=== PATIENT | male | born 1985 | race Caucasian/White ===

== ENCOUNTER → 2022-11-19 09:49 | Outpatient (BNVA) | payer MEDICARE, MEDICAID, SELFPAY | PROVIDERS: PCP Internal Medicine; Visit Provider Nurse Practitioner Family | DX: R56.9 Unspecified convulsions (principal); R11.2 Nausea with vomiting, unspecified | CPT/HCPCS: 99212 ==

== ENCOUNTER 2023-05-24 13:02 | Outpatient (AMB) | payer MEDICARE, MEDICAID, SELFPAY ==
[2023-05-24 13:03] VITALS: BP 110/76; PULSE 65; O2SAT 98
--- NOTE | 2023-05-24 13:03 | MHC.OFFVIS ---
Intake Vital Signs 05/24/23 13:03 Height 5 ft 11 in BMI Reason not done Patient refused/unable BP 110/76 Blood Pressure Location Rt brachial Position Sitting Pulse 65 Pulse Source Pulse Oximeter Pulse Oximetry (%) 98 Oxygen Delivery Method Room Air Intake Visit Reasons: 6m follow up PNS - Confirmed Intake Note: Pt presents with his partner/systems applications programming lead as a f/u for seizures. pt states he hasn't had any seizures and everything is just fine. Floor Covering Printer Required: Yes Floor Covering Printer Name: Bradly Jones [id number] Accompanied by: Significant Other Allergies morphine Allergy (Intermediate, Verified 05/24/23 13:10) Seizure aspirin Allergy (Unknown, Verified 05/24/23 13:10) Unknown nicotine Allergy (Unknown, Verified 05/24/23 13:10) Unknown Medication List - Last Reconciled 05/24/23 by NONI Ochoa aspirin 81 mg PO DAILY atorvastatin 80 mg PO DAILY brimonidine 0.1% (Alphagan P) 1 drp ophthalmic (eye) TID carvedilol 12.5 mg PO BID diphenhydramine HCl (Banophen) 25 mg PO Q8H PRN dorzolamide-timolol 22.3-6.8 mg/mL ophthalmic (eye) BID escitalopram oxalate 10 mg PO DAILY evolocumab (Repatha SureClick) 140 mg subcut Q2W insulin lispro (Humalog KwikPen (U-100) Insulin) subcut latanoprost 0.005% 1 drp ophthalmic-Right BEDTIME [levemir 52 units subcut .night] phenytoin sodium extended 100 mg PO DAILY sacubitril-valsartan 49-51 mg (Entresto) 1 tab PO BID ticagrelor (Brilinta) 60 mg PO BID torsemide 20 mg PO DAILY HPI HPI Comments History of Present Illness Details 37-yr-old male presents for f/u visit, accompanied by his partner. Pt denies any significant interval medical changes. Pt denies any interval seizure activity. He is compliant w/ his Phenytoin. He did not do labs after last visit. They are curious if pt can travel to [place]. [facility] Medical History Albuminuria Anxiety Arthralgia Cardiomyopathy Diabetes type I Diabetic retinopathy DM (diabetes mellitus), type 1 with renal complications GERD (gastroesophageal reflux disease) HLD (hyperlipidemia) HTN (hypertension) Hypogonadism in male Microalbuminuria MINOO (obstructive sleep apnea) Surgical History Hx of BKA Social History Alcohol intake: current Patient Tobacco Use Status: Current everyday Tobacco user Review of Systems Const All systems reviewed & are unremarkable except as noted in HPI and below Physical Exam Vital Signs: Last Vital Signs Pulse 65 05/24/23 13:03 BP 110/76 05/24/23 13:03 Pulse Ox 98 05/24/23 13:03 Oxygen Delivery Method Room Air 05/24/23 13:03 Const General: cooperative and no acute distress Orientation/consciousness: patient oriented x3 Resp Effort & Inspection: normal respiratory effort and able to speak in complete sentences Neuro Other: Legally blind LLE- prosthetic General: patient oriented x3 Cognition (Neuro): normal cognition Psych Appearance: grossly normal Mental Status: mental status grossly normal Speech and movement: Normal speech and movement present Affect: normal affect Attitude: cooperative Assessment & Plan Assessment & Plan (1) Seizure: Code(s): R56.9 - Unspecified convulsions Plan Continue Phenytoin 200mg bid. Check CBC, CMP, phenytoin level- order slip given to pt. From a neuro stand point- pt may travel- advised him to bring a sufficient supply of phenytoin to accommodate any flight/travel changes. As an extra precaution, will send an order for prn Clonazepam 2mg for breakthrough seizure lasting > 2 minutes. f/u in 6 months or sooner prn. Orders: Orders Comprehensive Met. Panel 05/24/23 R56.9 - Unspecified convulsions Complete Blood Count Auto Diff 05/24/23 R56.9 - Unspecified convulsions Phenytoin Dilantin 05/24/23 R56.9 - Unspecified convulsions Medications: New clonazepam 1 tab prn seizure lasting longer than 2 minutes, may repeat x's 1 orally . PRN; 30 days 5 tabs 0RF seizure activity Changed From phenytoin sodium extended 100 mg PO DAILY To phenytoin sodium extended 200 mg (2 x 100 mg) PO BID 90 days 360 caps 1RF Coding Level of Care Code Est Pt Level 3 (25232) Diagnoses Seizure R56.9
== END 2023-05-24 13:45 | disposition home or self-care (01) ==
PROVIDERS: Visit Provider Nurse Practitioner Family
DX: R56.9 Unspecified convulsions (principal)
CPT/HCPCS: 99213

== ENCOUNTER → 2023-05-24 13:02 | Outpatient (BNVA) | payer MEDICARE, MEDICAID, SELFPAY | PROVIDERS: Visit Provider Nurse Practitioner Family | DX: R56.9 Unspecified convulsions (principal) | CPT/HCPCS: 99212 ==

== ENCOUNTER 2023-06-24 08:09 | Day surgery (SDC) | payer MEDICARE, MEDICAID, SELFPAY ==
[2023-06-20 10:20] VITALS: BMI 32.3
--- NOTE | 2023-06-21 08:27 | MHC.SHP ---
Pre-Procedural Eval Section A Date of Service: 06/21/23 The patient is an INPATIENT: No Changes since office visit: No Cold of Flu in the past 2 weeks, No New Medical Problems, No Changes in Medication and No Patient answered all questions The History & Physical has been completed within 30 days and I have reviewed it.: Yes Section B Chief Complaint: Age-related nuclear cataract, right eye Allergies: Allergies Allergy/AdvReac Type Severity Reaction Status Date / Time aspirin Allergy Intermediate Gastrointestinal Verified 06/20/23 10:24 Upset morphine Allergy Intermediate Seizure Verified 06/20/23 10:24 nicotine Allergy Intermediate Rash Verified 06/20/23 10:24 Plan Diagnosis/Plan: Unchanged I have reviewed the history and physical and performed a pertinent physical examination on my patient. No changes have occurred unless specified. Time Spent With Patient Time: Total time managing care of this patient today ____ minutes.
--- OUTSIDE RECORDS SUMMARY | 2023-06-24 08:11 | XMS_ITS | Continuity of Care Document ---
Author Name Unknown Organization [facility] ter Address [address] [place] [id number]- Care Team Providers Care Patrol Captain Name Role Phone Tuyet Mckinley MD Primary Care Physician Encounter [facility] [place] Date(s): 10/28/19 - 01/19/[address] [id number]- [facility] Encounter Diagnosis ST elevation (STEMI) myocardial infarction of unspecified site(Final) - Discharge Disposition: A-D/C Home Attending Physician: Jennifer Garcia MD Admitting Physician: Jennifer Garcia MD Referring Physician: Jennifer Garcia MD Allergies, Adverse Reactions, Alerts Substance Reaction Severity Status morphine hyperactive Active Medications aspirin 81 mg oral delayed release tablet = 81 mg, By Mouth, Daily, # 30 tablet, 0 Refills, Maintenance, 10/08/19 16:09:00 EST, EC Tablet, [facility], 180.34, cm, 10/08/19 12:43:00 EST, Height, 95.45, kg, 10/06/19 13:17:00 EST,Dry Weight Start Date: 10/08/19 Status: Ordered atorvastatin 80 mg oral tablet 1 tablet = 80 mg, By Mouth, Daily at bedtime, # 30 tablet, 0 Refills, Maintenance, 10/08/19 16:10:00 EST, Tablet, [facility], 180.34, cm, 10/08/19 12:43:00 EST, Height, 95.45, kg, 10/06/19 13:17:00 EST, Dry Weight Start Date: 10/08/19 Status: Ordered citalopram 10 mg oral tablet 10 mg, 1, tablet, By Mouth, Daily, # 30 tablet, Refills 0, Maintenance, 10/06/19 14:34:00 EST Start Date: 10/06/19 Status: Ordered Freestyle Lite Test Strips See Instructions, # 150 each, Refills 11, Tot. Refills 11, Maintenance, use 4 times daily as directed for Type 1 Diabetes Mellitus, 01/19/20 11:22:00 EDT, Compound, 180.34, cm, 10/28/19 10:48:00 EST,Height, 95.45, kg, 10/06/19 13:17:00 EST, Dry Weight Start Date: 01/19/20 Stop Date: 01/13/21 Status: Ordered Insulin ASPART Sliding Scale Subcutaneous Infusion, 3 times a day before meals, Maintenance, 10/06/19 14:36:00 EST Start Date: 10/06/19 Status: Ordered Insulin Detemir Inj See Instructions, 40units Subcutaneous Infusion QHS, 0 Refills, Maintenance, 10/06/19 14:37:00 EST Start Date: 10/06/19 Status: Ordered Levemir FlexTouch 100 units/mL subcutaneous solution See Instructions, Take 52 units daily at bedtime. E11.65, # 30 mL, 11 Refills, Maintenance, 01/19/20 11:19:00 EDT, [facility] #[id number], 180.34, cm, 10/28/19 10:48:00 EST, Height, 95.45, kg, 10/06/19 13:17:00 EST, Dry Weight Start Date: 01/19/20 Status: Ordered lisinopril 10 mg oral tablet 10 mg, 1, tablet, By Mouth, Daily, # 30 tablet, Refills 0, Maintenance, 10/06/19 14:35:00 EST Start Date: 10/06/19 Status: Ordered nicotine 21 mg/24 hr transdermal film, extended release 1 patch, Topically, Daily, # 30 patch, 1 Refills, Maintenance, 10/08/19 16:11:00 EST, Patch, [facility], 1 patch Topically Daily, 180.34, cm, 10/08/19 12:43:00 EST, Height, 95.45, kg, 10/06/19 13:17:00 EST, Dry Weight Start Date: 10/08/19 Stop Date: 11/08/19 Status: Ordered NovoLOG FlexPen 100 units/mL subcutaneous solution See Instructions, Subcutaneous Injection, Use as directed for Diabetes mellitus type 1. (Max Dose =50 units/day), # 30 mL, 11 Refills, Maintenance, 10/09/19 9:57:00 EST, [facility] #[id number],180.34, cm, 10/09/19 9:33:00 EST, Height, 95.45, kg... Start Date: 10/09/19 Stop Date: 10/03/20 Status: Ordered Phenytek 200 mg oral capsule, extended release 2 capsule = 400 mg, By Mouth, Daily, # 30 capsule, 0 Refills, Maintenance, 10/06/19 14:34:00 EST, CR Capsule Start Date: 10/06/19 Status: Ordered ticagrelor 90 mg oral tablet 1 tablet = 90 mg, By Mouth, 2 times a day, # 60 tablet, 0 Refills, Maintenance, 10/08/19 16:11:00 EST, Tablet, [facility], 180.34, cm, 10/08/19 12:43:00 EST, Height, 95.45, kg, 10/06/1913:17:00 EST, Dry Weight Start Date: 10/08/19 Status: Ordered Toprol XL 50 mg oral tablet, extended release 50 mg, 1, tablet, By Mouth, Daily, # 30 tablet, Refills 0, Tot. Refills 0, Maintenance, 10/08/19 16:10:00 EST, Route to Pharmacy Electronically, [facility], 180.34, cm, 10/08/19 12:43:00 EST, Height, 95.45, kg, 10/06/19 13:17:00 EST, Dry... Start Date: 10/08/19 Status: Ordered Problem List Condition Effective Dates Status Health Status Inform ant CAD (coronary artery disease)(Confirmed) Active Epilepsy(Confirmed) Active HTN (hypertension)(Confirmed) Active Positive PPD 11 mm(Confirmed) 1 06/25/12 Active Type 1 diabetes mellitus(Confirmed) Active 1T-Spot test negative on 02/24/13. No further action required. Vital Signs Most recent to oldest [Reference Range]: 1 Height 180.34 cm (10/28/19 10:48 AM) Weight 99.5 kg (10/28/19 10:48 AM) Body Mass Index [18.5-24.99] 30.59 *>HHI* (10/28/19 10:48 AM) Blood Pressure [90-138/55-84 mm Hg] 120/ 64mm Hg (10/28/19 10:48 AM) Blood pressure sites Arm, right (10/28/19 10:48 AM) Social History Social History Type Response Tobacco Type: Cigarettes. To bacco use times per day: 10 ciggerettes per day. 20 Number of years:. Total pack years: 10. Sex
--- OUTSIDE RECORDS SUMMARY | 2023-06-24 08:11 | XMS_ITS | Continuity of Care Document ---
Author Name Unknown Organization [facility] Address [address] [place] [id number]- Care Team Providers Care Tool Filer Hand Name Role Phone Arlen BRAND, Tuyet Cullen Primary Care Physician Encounter [facility] [place] Date(s): 02/20/21 - 03/22/21 [facility] [address] [place] [id number] Allergies, Adverse Reactions, Alerts Substance Reaction Severity Status morphine hyperactive Active Medications aspirin 81 mg oral delayed release tablet = 81 mg, By Mouth, Daily, # 30 tablet, 0 Refills, Maintenance, 10/08/19 16:09:00 EST, EC Tablet, [facility], 180.34, cm, 10/08/19 12:43:00 EST, Height, 95.45, kg, 10/06/19 13:17:00 EST,Dry Weight Start Date: 10/08/19 Status: Ordered atorvastatin 80 mg oral tablet 1 tablet = 80 mg, By Mouth, Daily at bedtime, # 30 tablet, 0 Refills, Maintenance, 10/08/19 16:10:00 EST, Tablet, [facility], 180.34, cm, 10/08/19 12:43:00 EST, Height, 95.45, kg, 10/06/19 13:17:00 EST, Dry Weight Start Date: 10/08/19 Status: Ordered citalopram 10 mg oral tablet 10 mg, 1, tablet, By Mouth, Daily, # 30 tablet, Refills 0, Maintenance, 10/06/19 14:34:00 EST Start Date: 10/06/19 Status: Ordered Freestyle Lite Test Strips See Instructions, # 150 each, Refills 6, Tot. Refills 6, Maintenance, use 4 times daily as directedfor Type 1 Diabetes Mellitus, 02/22/21 10:14:00 EDT, Compound, 180.34, cm, 10/28/19 10:48:00 EST, Height, 95.45, kg, 10/06/19 13:17:00 EST, Dry Weight Start Date: 02/22/21 Stop Date: 09/20/21 Status: Ordered Humalog Kwik Pen 100 units/mL subcutaneous injection See Instructions, Use as directed for Diabetes Mellitus type 1. Max daily dose 50 units. E10.9. 30 day supply., # 30 mL, 11 Refills, Maintenance, 02/03/21 13:43:00 EDT, [facility] #[id number], 180.34, cm, 10/28/19 10:48:00 EST, Height, 95.45, kg,... Start Date: 02/03/21 Status: Ordered Levemir FlexTouch 100 units/mL subcutaneous solution See Instructions, Take 25 units twice daily. E10.9, # 30 mL, 11 Refills, Maintenance, 02/06/21 21:58:00 EDT, [facility] #[id number], 180.34, cm, 10/28/19 10:48:00 EST, Height, 95.45, kg, 10/06/19 13:17:00 EST, Dry Weight Start Date: 02/06/21 Status: Ordered lisinopril 10 mg oral tablet 10 mg, 1, tablet, By Mouth, Daily, # 30 tablet, Refills 0, Maintenance, 10/06/19 14:35:00 EST Start Date: 10/06/19 Status: Ordered nicotine 21 mg/24 hr transdermal film, extended release 1 patch, Topically, Daily, # 30 patch, 1 Refills, Maintenance, 10/08/19 16:11:00 EST, Patch, [facility], 1 patch Topically Daily, 180.34, cm, 10/08/19 12:43:00 EST, Height, 95.45, kg, 10/06/19 13:17:00 EST, Dry Weight Start Date: 10/08/19 Stop Date: 11/08/19 Status: Ordered Phenytek 200 mg oral capsule, extended release 2 capsule = 400 mg, By Mouth, Daily, # 30 capsule, 0 Refills, Maintenance, 10/06/19 14:34:00 EST, CR Capsule Start Date: 10/06/19 Status: Ordered ticagrelor 90 mg oral tablet 1 tablet = 90 mg, By Mouth, 2 times a day, # 60 tablet, 0 Refills, Maintenance, 10/08/19 16:11:00 EST, Tablet, [facility], 180.34, cm, 10/08/19 12:43:00 EST, Height, 95.45, kg, 10/06/1913:17:00 EST, Dry Weight Start Date: 10/08/19 Status: Ordered Toprol XL 50 mg oral tablet, extended release 50 mg, 1, tablet, By Mouth, Daily, # 30 tablet, Refills 0, Tot. Refills 0, Maintenance, 10/08/19 16:10:00 EST, Route to Pharmacy Electronically, [facility], 180.34, cm, 10/08/19 12:43:00 EST, Height, 95.45, kg, 10/06/19 13:17:00 EST, Dry... Start Date: 10/08/19 Status: Ordered Problem List Condition Effective Dates Status Health Status Inform ant CAD (coronary artery disease)(Confirmed) Active Epilepsy(Confirmed) Active HTN (hypertension)(Confirmed) Active Positive PPD 11 mm(Confirmed) 1 06/25/12 Active Type 1 diabetes mellitus(Confirmed) Active 1T-Spot test negative on 02/24/13. No further action required. Social History Social History Type Response Tobacco Type: Cigarettes. To bacco use times per day: 10 ciggerettes per day. 20 Number of years:. Total pack years: 10. Sex
--- OUTSIDE RECORDS SUMMARY | 2023-06-24 08:11 | XMS_ITS | Continuity of Care Document ---
Author Name Unknown Organization [facility] ter Address [address] [place] [id number]- Care Team Providers Care Attendant Campground Name Role Phone Tuyet Mckinley Primary Care Physician [place] [facility] [place] - 10/08/[address] [address]- [facility] Encounter Diagnosis Chest pain(Final) - 10/06/19 Discharge Disposition: A-D/C Home Attending Physician: Thee Cason MD Admitting Physician: Clark Mazariegos MD Referring Physician: Not on Staff, Referring MD Allergies, Adverse Reactions, Alerts Substance Reaction [...] 14:34:00 EST Start Date: 10/06/19 Status: Ordered Insulin ASPART Sliding Scale Subcutaneous Infusion, 3 times a day before meals, Maintenance, 10/06/19 14:36:00 EST Start Date: 10/06/19 Status: Ordered Insulin Detemir Inj See Instructions, 40units Subcutaneous Infusion QHS, 0 Refills, Maintenance, 10/06/19 14:37:00 EST Start Date: 10/06/19 Status: Ordered lisinopril 10 mg oral tablet 10 mg, 1, tablet, By Mouth, Daily, # 30 tablet, Refills 0, Maintenance, 10/06/19 14:35:00 EST Start Date: 10/06/19 Status: Ordered nicotine 21 mg/24 hr transdermal film, extended release 1 patch, Topically, Daily, # 30 patch, 1 Refills, Maintenance, 10/08/19 16:11:00 EST, Patch, [facility], 1 patch Topically Daily, 180.34, cm, [...] 10/08/19 16:10:00 EST, Route to Pharmacy Electronically, [facility], 180.34, cm, 10/08/19 12:43:00 EST, Height, 95.45, kg, 10/06/19 13:17:00 EST, Dry... Start Date: 10/08/19 Status: Ordered Problem List Condition Effective Dates Status Health Status Inform ant CAD (coronary artery disease)(Confirmed) Active Epilepsy(Confirmed) Active HTN (hypertension)(Confirmed) Active Positive PPD 11 mm(Confirmed) 1 06/25/12 Active Type 1 diabetes mellitus(Confirmed) Active 1T-Spot test negative on 02/24/13. No further action required. Procedures Procedure Date Related Diagnosis Body Site Status Retinal abnormality - diabetes-related 10/07/14 Completed Results Radiology Reports * Exam Date Time Procedure Performing Provider Status 10/06/19 12:06 PM Chest Portable Erin Hatch; Aut h (Verified) Notes: (Chest Portable) Reason For Exam: chest pain;Other: RESULT: Chest Portable Chest Portable AP upright at 1148 hours Reason: Other:; chest pain; Clinical Question(s): Pneumothorax COMPARISON: 02/24/2013 FINDINGS: LINES AND TUBES: None. LUNGS AND PLEURA: Clear lungs. Normal pulmonary vascularity. No pleural effusion. No pneumothorax. HEART, MEDIASTINUM AND LORI: Heart is normal in size. Normal mediastinal and hilar contour. BONES AND SOFT TISSUES: No acute abnormality. IMPRESSION: No acute abnormality. WSN: [id number] Dictated By: iMtul Mcmillan DO Dictated Date/Time: 10/06/19 12:11 p Reviewed By: Mitul Mcmillan DO Signed By: Mitul Mcmillan DO Signed Date/Time: 10/06/19 12:11 pm Transcribed By: JAIME Transcribed Date/Time: 10/06/19 12:10 pm Vital Signs Most recent to oldest [Reference Range]: 1 2 3 Height 180.34 cm (10/08/19 12:43 PM) 180.34 cm (10/08/19 9:14 AM) 180.34 cm (10/08/19 4:15 AM) Weight 99.7 kg (10/06/19 1:17 PM) Oxygen Saturation [94-100 %] 100 % (10/08/19 12:43 PM) 100 % (10/08/19 9:14 AM) 100 % (10/08/19 4:15 AM) Pulse Rate [55-90 bpm] 85 bpm (1/2/20 12:43 PM) 81 bpm (10/08/19 10:07 AM) 81 bpm (10/08/19 9:14 AM) Body Mass Index [18.5-24.99] 30.66 *>HHI* (10/06/19 1:17 PM) Blood Pressure [90-138/55-84 mm Hg] 114/78mm Hg (10/08/19 12:43 PM) 131/85mm Hg (10/08/19 10:07 AM) 131/85mm Hg (10/08/19 10:07 AM) Respiratory Rate [16-30 br/min] 18 br/min (10/08/19 12:43 PM) 18 br/min (10/08/19 9:14 AM) 18 br/min (10/08/19 4:15 AM) Temperature [96.8-100.4 DegF] 98.6 DegF (10/08/19 12:43 PM) 98.0 DegF (10/08/19 9:14 AM) 98.0 DegF (10/08/19 4:15 AM) Liters per Minute 3 L/min (10/07/19 5:00 AM) 3 L/min (10/07/19 4:00 AM) 3 L/min (10/07/19 3:00 AM) Mode of Delivery (Oxygen) Room air (10/08/19 12:43 PM) Room air (10/08/19 9:14 AM) Room air (10/08/19 4:15 AM) Blood pressure sites Arm, left (10/08/19 12:43 PM) Arm, left (10/08/19 9:14 AM) Arm, left (10/08/19 4:15 AM) Temperature Route Oral (10/08/19 12:43 PM) Oral (10/08/19 9:14 AM) Oral (10/08/19 4:15 AM) Dry Weight 95.45 kg (10/06/19 1:17 PM) Dry Weight Obtained Via Patient/family stated (10/06/19 1:17 PM) Sensory deficits Other: retinal surgery (10/06/19 1:17 PM) Mobility assistance Partial assistance (10/07/19 4:00 AM) Independent (10/06/19 9:00 PM) Independent (10/06/19 1:17 PM) Social History Social History Type Response Tobacco Type: Cigarettes. To bacco use times per day: 10 ciggerettes per day. 20 Number of years:. Total pack years: 10. Sex
--- OUTSIDE RECORDS SUMMARY | 2023-06-24 08:11 | XMS_ITS | Continuity of Care Document ---
Author Name Unknown Organization [facility] Address [address] [place] [phone]- Care Team Providers Care Guest Service Aide Name Role Phone Arlen BRAND, Tuyet Cullen Primary Care Physician Encounter [facility] [place] Date(s): 11/30/21 - 12/30/21 [facility] [address] [place] [id number] Allergies, Adverse Reactions, Alerts Substance Reaction Severity Status morphine hyperactive Active Medications Advair Diskus 250 mcg-50 mcg inhalation powder 1, inhalation, Inhalation, 2 times a day, rinse mouth and throat after use, Refills 0, Maintenance,11/04/21 5:35:00 EST, Powder Start Date: 11/04/21 Status: Ordered aspirin 81 mg oral delayed release tablet = 81 mg, By Mouth, Daily, # 30 tablet, 0 Refills, Maintenance, 10/08/19 16:09:00 EST, EC Tablet, [facility], 180.34, cm, 10/08/19 12:43:00 EST, Height, 95.45, kg, 10/06/19 13:17:00 EST,Dry Weight Start Date: 10/08/19 Status: Ordered atorvastatin 80 mg oral tablet 1 tablet = 80 mg, By Mouth, Daily, # 30 tablet, 5 Refills, Maintenance, 11/12/21 5:10:00 EST, Tablet, [facility] #[id number], Partial fill upon patient request if the prescription is for a schedule II opioid drug., 165, cm, 11/06/21 2:03:00 EST,... Start Date: 11/12/21 Stop Date: 05/11/22 Status: Ordered citalopram 10 mg oral tablet 10 mg, 1, tablet, By Mouth, Daily, # 30 tablet, Refills 0, Maintenance, 10/06/19 14:34:00 EST Start Date: 10/06/19 Status: Ordered Entresto 49 mg-51 mg oral tablet 1 tablet, By Mouth, 2 times a day, # 60 tablet, 0 Refills, Maintenance, 11/06/21 11:08:00 EST, Tablet, [facility] #[id number], Partial fill upon patient request if the prescription is for a schedule II opioid drug., 1 tablet By Mouth 2 times a da... Start Date: 11/06/21 Status: Ordered Freestyle Lite Test Strips See Instructions, # 150 each, Refills 11, Tot. Refills 11, Maintenance, use 4 times daily as directed for Type 1 Diabetes Mellitus, 11/30/21 13:53:00 EST, Compound, 165, cm, 11/06/21 2:03:00 EST, Height, 100, kg, 11/04/21 5:38:00 EST, Dry Weight Start Date: 11/30/21 Stop Date: 11/25/22 Status: Ordered Humalog Kwik Pen 100 units/mL subcutaneous injection See Instructions, Use 10 units 3 times daily before meals with correctional scale for Diabetes Mellitus type 1. Max daily dose 50 units. E10.9. 30 day supply., # 30 mL, 11 Refills, Maintenance, 11/15/21 15:10:00 EST, [facility] #[id number], 165,... Start Date: 11/15/21 Status: Ordered Levemir FlexTouch 100 units/mL subcutaneous solution = 42 units, Subcutaneous Injection, Daily at bedtime, use nightly for type 1 DM, # 15 mL, 11 Refills, Maintenance, 11/15/21 15:09:00 EST, [facility] #[id number], 165, cm, 11/06/21 2:03:00 EST, Height, 100, kg, 11/04/21 5:38:00 EST, Dry Weight Start Date: 11/15/21 Status: Ordered phenytoin 100 mg oral capsule, extended release 1 capsule = 100 mg, By Mouth, 4 times a day, # 90 capsule, 0 Refills, Maintenance, 11/04/21 5:33:00EST, CR Capsule, Partial fill upon patient request if the prescription is for a schedule II opioid drug. Start Date: 11/04/21 Status: Ordered ticagrelor 90 mg oral tablet 1 tablet = 90 mg, By Mouth, 2 times a day, # 60 tablet, 0 Refills, Maintenance, 10/08/19 16:11:00 EST, Tablet, [facility], 180.34, cm, 10/08/19 12:43:00 EST, Height, 95.45, kg, 10/06/1913:17:00 EST, Dry Weight Start Date: 10/08/19 Status: Ordered Toprol XL 25 mg oral tablet, extended release 25 mg, 1, tablet, By Mouth, Daily, # 90 tablet, Refills 1, Tot. Refills 1, Maintenance, 11/06/21 11:09:00 EST, Route to Pharmacy Electronically, [facility][id number], Partial fill upon patientrequest if the prescription is for a schedule II op... Start Date: 11/06/21 Status: Ordered Problem List Condition Effective Dates Status Health Status Inform ant CAD (coronary artery disease)(Confirmed) Active Epilepsy(Confirmed) Active HTN (hypertension)(Confirmed) Active Obese class II(Confirmed) Active Positive PPD 11 mm(Confirmed) 1 06/25/12 Active Type 1 diabetes mellitus(Confirmed) Active 1T-Spot test negative on 02/24/13. No further action required. Social History Social History Type Response Tobacco Type: Cigarettes. To bacco use times per day: 10 ciggerettes per day. 20 Number of years:. Total pack years: 10. Sex
--- OUTSIDE RECORDS SUMMARY | 2023-06-24 08:11 | XMS_ITS | Continuity of Care Document ---
Author Name Unknown Organization [facility] Address [address] [place] [id number]- Care Team Providers Care Sports Reporter Name Role Phone Tuyet Mckinley MD Primary Care Physician [phone] Encounter [facility] Date(s): 11/19/22 - 01/25/23 [facility] [address] [place] [id number] Attending Physician: Anna Durham MD Admitting Physician: Anna Durham MD Referring Physician: Tuyet Mckinley MD Allergies, Adverse Reactions, Alerts Substance Reaction Severity Status morphine hyperactive Active Medications acetaZOLAMIDE 500 mg oral capsule, extended release TAKE 1 CAPSULE BY MOUTH TWICE DAILY Start Date: 03/06/22 Status: Ordered Advair Diskus 250 mcg-50 mcg inhalation powder 1, inhalation, Inhalation, 2 times a day, rinse mouth and throat after use, Refills 0, Maintenance,11/04/21 5:35:00 EST, Powder Start Date: 11/04/21 Status: Ordered aspirin 81 mg oral delayed release tablet = 81 mg, By Mouth, Daily, # 30 tablet, 0 Refills, Maintenance, 10/08/19 16:09:00 EST, EC Tablet, [facility], 180.34, cm, 10/08/19 12:43:00 EST, Height, 95.45, kg, 10/06/19 13:17:00 EST,Dry Weight Start Date: 10/08/19 Status: Ordered atorvastatin 80 mg oral tablet 1 tablet = 80 mg, By Mouth, Daily, # 30 tablet, 5 Refills, Maintenance, 11/12/21 5:10:00 EST, Tablet, [facility] #[id number], Partial fill upon patient request if the prescription is for a schedule II opioid drug., 165, cm, 11/06/21 2:03:00 EST,... Start Date: 11/12/21 Stop Date: 05/11/22 Status: Ordered carvedilol 6.25 mg oral tablet 6.25 mg, 1, tablet, By Mouth, 2 times a day, Refills 0, Maintenance, 01/25/22 17:43:00 EDT, Partialfill upon patient request if the prescription is for a schedule II opioid drug. Start Date: 01/25/22 Status: Ordered Entresto 49 mg-51 mg oral tablet 1 tablet, By Mouth, 2 times a day, # 60 tablet, 0 Refills, Maintenance, 11/06/21 11:08:00 EST, Tablet, [facility] #[id number], Partial fill upon patient request if the prescription is for a schedule II opioid drug., 1 tablet By Mouth 2 times a da... Start Date: 11/06/21 Status: Ordered escitalopram 10 mg oral tablet 1 tablet = 10 mg, By Mouth, Daily, 0 Refills, Maintenance, 01/25/22 17:47:00 EDT, Partial fill uponpatient request if the prescription is for a schedule II opioid drug. Start Date: 01/25/22 Status: Ordered Freestyle Lite Test Strips See Instructions, # 150 each, Refills 11, Tot. Refills 11, Maintenance, use 4 times daily as directed for Type 1 Diabetes Mellitus, 11/19/22 14:23:00 EST, Compound, 180.3, cm, 02/27/22 9:54:00 EDT, Height, 105, kg, 02/26/22 16:23:00 EDT, Dry Weight Start Date: 11/19/22 Stop Date: 11/14/23 Status: Ordered Humalog Kwik Pen 100 units/mL subcutaneous injection See Instructions, following sliding scale use 10-16 units subcutaneously, max daily dose is 54 units E10.9. 30 day supply., # 30 mL, 0 Refills, Maintenance, 11/19/22 14:25:00 EST, [facility] #[id number], 180.3, cm, 02/27/22 9:54:00 EDT, Height, 1... Start Date: 11/19/22 Status: Ordered Levemir FlexTouch 100 units/mL subcutaneous solution = 42 units, Subcutaneous Injection, Daily at bedtime, use nightly for type 1 DM, # 15 mL, 0 Refills, Maintenance, 11/19/22 14:26:00 EST, [facility] #[id number], 180.3, cm, 02/27/22 9:54:00 EDT, Height, 105, kg, 02/26/22 16:23:00 EDT, Dry Weight Start Date: 11/19/22 Status: Ordered nitroglycerin 0.3 mg sublingual tablet 1 tablet = 0.3 mg, Sublingual, Every 5 minutes, 0 Refills, Maintenance, 01/25/22 17:44:00 EDT, Partial fill upon patient request if the prescription is for a schedule II opioid drug. Start Date: 01/25/22 Status: Ordered phenytoin 100 mg oral capsule, extended release 1 capsule = 100 mg, By Mouth, 4 times a day, # 90 capsule, 0 Refills, Maintenance, 11/04/21 5:33:00EST, [facility] Capsule, Partial fill upon patient request if the prescription is for a schedule II opioid drug. Start Date: 11/04/21 Status: Ordered prednisolone ophthalmic acetate 1% suspension SHAKE LIQUID AND INSTILL 1 DROP IN RIGHT EYE FOUR TIMES DAILY Start Date: 03/06/22 Status: Ordered ProAir HFA Inhalation, Every 6 hours, 0 Refills, Maintenance, 01/25/22 17:46:00 EDT, Partial fill upon patientrequest if the prescription is for a schedule II opioid drug. Start Date: 01/25/22 Status: Ordered Repatha SureClick 140 mg/mL subcutaneous solution INJECT 1 ML SUBCUTANEOUS EVERY 14 DAYS Start Date: 03/06/22 Status: Ordered ticagrelor 90 mg oral tablet 1 tablet = 90 mg, By Mouth, 2 times a day, # 60 tablet, 0 Refills, Maintenance, 10/08/19 16:11:00 EST, Tablet, [facility], 180.34, cm, 10/08/19 12:43:00 EST, Height, 95.45, kg, 10/06/1913:17:00 EST, Dry Weight Start Date: 10/08/19 Status: Ordered torsemide 20 mg oral tablet 1 tablet = 20 mg, By Mouth, Daily, 0 Refills, Maintenance, 01/25/22 17:42:00 EDT, Partial fill uponpatient request if the prescription is for a schedule II opioid drug. Start Date: 01/25/22 Status: Ordered Problem List Condition Confirmation Course Effective Dates Status Health St atus Informant CAD (coronary artery disease) Confirmed Active Epilepsy Confirmed Active HTN (hypertension) Confirmed Active Obese class I Confirmed Active Positive PPD 11 mm 1 Confirmed 06/25/12 Active Type 1 diabetes mellitus Confirmed Active 1T-Spot test negative on 02/24/13. No further action required. Social History Social History Type Response Tobacco Type: Cigarettes. To bacco use times per day: 10 ciggerettes per day. 20 Number of years:. Total pack years: 10. Sex Patient Care team information Care Team Personnel Name: Jermain Benavidez RN Position: [facility] RN Supv Member Role: Primary Care Nurse Name: Sunshine Avery RN Position: S RN Member Role: Primary Care Nurse Name: Anne Shook NP Position: [facility] Associate Professional Member Role: Primary Care Nurse Address: Address: [address] [place] [address] Name: Tuyet Mckinley MD Position: [facility] Physician (General Medicine) Member Role: PCP Address: Address: [address] [place] [address], [address] Primary [place] [address]- Name: Torri Lau RN Position: [facility] RN Member Role: Primary Care Nurse Name: Angelia Ordonez RN Position: [facility] RN Member Role: Primary Care Nurse Care Team Related Persons Name: DANIE RODRIGUEZ Address: home [address] [place] [id number]
--- OUTSIDE RECORDS SUMMARY | 2023-06-24 08:11 | XMS_ITS | Continuity of Care Document ---
Author Name Unknown Organization [facility] Address [address] [place] [address]- Care Team Providers Care Circular Ripsaw Operator Name Role Phone Rosaura BRAND, Essie Dillon Primary Care Physician Encounter [facility] Date(s): 06/13/22 - 07/13/22 [facility] [address] [place] [id number] Allergies, Adverse Reactions, Alerts Substance Reaction Severity [...] Refills, Maintenance, 10/08/19 16:09:00 EST, EC Tablet, [facility], 180.34, cm, 10/08/19 12:43:00 EST, Height, 95.45, kg, 10/06/19 13:17:00 EST,Dry Weight Start Date: 10/08/19 Status: Ordered atorvastatin 80 mg oral tablet 1 tablet = 80 mg, By Mouth, Daily, # 30 tablet, 5 Refills, Maintenance, 11/12/21 5:10:00 EST, Tablet, [facility] #[id number], Partial fill upon patient request if the [...] 0 Refills, Maintenance, 11/06/21 11:08:00 EST, Tablet, [facility] #[id number], Partial fill upon patient request if the [...] mL, 11 Refills, Maintenance, 11/15/21 15:10:00 EST, [facility] #[id number], 165,... Start Date: 11/15/21 Status: Ordered Levemir FlexTouch 100 units/mL subcutaneous solution = 42 units, Subcutaneous Injection, Daily at bedtime, use nightly for type 1 DM, # 15 mL, 11 Refills, Maintenance, 05/28/22 14:11:00 EDT, [facility] #[id number], 180.3, cm, 02/27/22 9:54:00 EDT,Height, 105, kg, 02/26/22 16:23:00 EDT, Dry Weight Start Date: 05/28/22 Status: Ordered nitroglycerin 0.3 mg sublingual tablet [...] 0 Refills, Maintenance, 10/08/19 16:11:00 EST, Tablet, [facility], 180.34, cm, 10/08/19 12:43:00 EST, Height, [...] years: 10. Sex Patient Care team information Personnel Name: Rosaura BRAND, Essie Dillon Address: Address: [address] [place] [address]
--- OUTSIDE RECORDS SUMMARY | 2023-06-24 08:11 | XMS_ITS | Continuity of Care Document ---
Author Name Unknown Organization [facility] ter Address [address] [place] [address]- Care Team Providers Care Private Tutors And Teachers Name Role Phone Tuyet Mckinley MD Primary Care Physician [phone] Encounter [facility] [id number] Date(s): 11/06/19 - 11/16/[address] [address]- [facility] Attending Physician: Admtr, Ar8 Admitting Physician: Admtr, Ar8 Referring Physician: Admtr, Ar8 Allergies, Adverse Reactions, Alerts Substance Reaction Severity Status morphine hyperactive Active Medications aspirin 81 mg oral delayed release tablet = 81 mg, By Mouth, Daily, # 30 tablet, 0 Refills, Maintenance, 10/08/19 16:09:00 EST, EC Tablet, [facility], 180.34, cm, 10/08/19 12:43:00 EST, Height, 95.45, kg, 10/06/19 13:17:00 EST,Dry Weight Start Date: 10/08/19 Status: Ordered atorvastatin 80 mg oral tablet 1 tablet = 80 mg, By Mouth, Daily at bedtime, # 30 tablet, 0 Refills, Maintenance, 10/08/19 16:10:00 EST, Tablet, [facility], 180.34, cm, 10/08/19 12:43:00 EST, Height, 95.45, kg, 10/06/19 13:17:00 EST, Dry Weight Start Date: 10/08/19 Status: Ordered citalopram 10 mg oral tablet 10 mg, 1, tablet, By Mouth, Daily, # 30 tablet, Refills 0, Maintenance, 10/06/19 14:34:00 EST Start Date: 10/06/19 Status: Ordered Freestyle Lite Test Strips See Instructions, # 200 each, Refills 11, Tot. Refills 11, Maintenance, use 4 times daily as directed for Type 1 Diabetes Mellitus, 10/09/19 9:56:00 EST, Compound, 180.34, cm, 10/09/19 9:33:00 EST, Height, 95.45, kg, 10/06/19 13:17:00 EST, Dry Weight Start Date: 10/09/19 Stop Date: 10/03/20 Status: Ordered Insulin ASPART Sliding Scale Subcutaneous Infusion, 3 times a day before meals, Maintenance, 10/06/19 14:36:00 EST Start Date: 10/06/19 Status: Ordered Insulin Detemir Inj See Instructions, 40units Subcutaneous Infusion QHS, 0 Refills, Maintenance, 10/06/19 14:37:00 EST Start Date: 10/06/19 Status: Ordered Levemir FlexTouch 100 units/mL subcutaneous solution = 40 units, Subcutaneous Infusion, Daily at bedtime, # 30 mL, 11 Refills, Maintenance, 10/09/19 9:55:00 EST, [facility] #[id number], 180.34, cm, 10/09/19 9:33:00 EST, Height, 95.45, kg, 10/06/1913:17:00 EST, Dry Weight Start Date: 10/09/19 Status: Ordered lisinopril 10 mg oral tablet 10 mg, 1, tablet, By Mouth, Daily, # 30 tablet, Refills 0, Maintenance, 10/06/19 14:35:00 EST Start Date: 10/06/19 Status: Ordered nicotine 21 mg/24 hr transdermal film, extended release 1 patch, Topically, Daily, # 30 patch, 1 Refills, Maintenance, 10/08/19 16:11:00 EST, Patch, [facility], 1 patch Topically Daily, 180.34, cm, 10/08/19 12:43:00 EST, Height, 95.45, kg, 10/06/19 13:17:00 EST, Dry Weight Start Date: 10/08/19 Stop Date: 11/08/19 Status: Ordered NovoLOG FlexPen 100 units/mL subcutaneous solution See Instructions, Subcutaneous Injection, Use as directed for Diabetes mellitus type 1. (Max Dose =50 units/day), # 30 mL, 11 Refills, Maintenance, 10/09/19 9:57:00 EST, [facility] #[id number],180.34, cm, 10/09/19 9:33:00 EST, Height, 95.45, kg... [...] 0 Refills, Maintenance, 10/08/19 16:11:00 EST, Tablet, [facility], 180.34, cm, 10/08/19 12:43:00 EST, Height, 95.45, kg, 10/06/1913:17:00 EST, Dry Weight Start Date: 10/08/19 Status: Ordered Toprol XL 50 mg oral tablet, extended release 50 mg, 1, tablet, By Mouth, Daily, # 30 tablet, Refills 0, Tot. Refills 0, Maintenance, 10/08/19 16:10:00 EST, Route to Pharmacy Electronically, [facility], 180.34, cm, 10/08/19 [...]
--- OUTSIDE RECORDS SUMMARY | 2023-06-24 08:11 | XMS_ITS | Continuity of Care Document ---
Author Name Unknown Organization [facility] Address [address] [place] [address]- Care Team Providers Care Area Cleaner Name Role Phone Arlen BRAND, Tuyet Cullen Primary Care Physician Encounter [facility] Date(s): 01/30/23 - 03/07/23 [facility] [address] [place] [id number] Attending Physician: Anna Durham MD Admitting Physician: Anna Durham MD Allergies, Adverse Reactions, Alerts Substance Reaction [...] Refills, Maintenance, 10/08/19 16:09:00 EST, EC Tablet, [facility], 180.34, cm, 10/08/19 12:43:00 EST, Height, 95.45, kg, 10/06/19 13:17:00 EST,Dry Weight Start Date: 10/08/19 Status: Ordered atorvastatin 80 mg oral tablet 1 tablet = 80 mg, By Mouth, Daily, # 30 tablet, 5 Refills, Maintenance, 11/12/21 5:10:00 EST, Tablet, [facility] #[id number], Partial fill upon patient request if the [...] 0 Refills, Maintenance, 11/06/21 11:08:00 EST, Tablet, [facility] #[id number], Partial fill upon patient request if the [...] opioid drug. Start Date: 01/25/22 Status: Ordered FreeStyle Krystyna 2 Monitor See Instructions, # 1 each, Refills 0, Tot. Refills 0, Maintenance, Use to check blood sugar 4x a day for T1DM. E10.9,, 02/05/23 15:01:00 EDT, [facility], 180.3, cm, 02/05/23 12:44:00 EDT, Height, 105, kg, 02/26/22 16:23:00 EDT, Dry Weight Start Date: 02/05/23 Status: Ordered FreeStyle Krystyna 2 Sensors See Instructions, # 2 each, Refills 3, Tot. Refills 3, Maintenance, Use to check blood sugar 4x/dayfor T1DM. E10.9., 02/05/23 15:03:00 EDT, Supply, 180.3, cm, 02/05/23 12:44:00 EDT, Height, 105, kg,02/26/22 16:23:00 EDT, Dry Weight Start Date: 02/05/23 Status: Ordered Freestyle Lite Test Strips See Instructions, # 150 each, Refills 11, Tot. Refills 11, Maintenance, use 4 times daily as directed for Type 1 Diabetes Mellitus, 11/19/22 14:23:00 EST, Compound, 180.3, cm, 02/27/22 9:54:00 EDT, Height, 105, kg, 02/26/22 16:23:00 EDT, Dry Weight Start Date: 11/19/22 Stop Date: 11/14/23 Status: Ordered Insulin Lispro KwikPen 100 units/mL injectable solution See Instructions, FOLLOW SLIDING SCALE USE 10-16 UNITS UNDER THE SKIN EVERY DAY MAX DAILY DOSE OF 54, # 30 mL, 0 Refills, Maintenance, 01/31/23 10:13:00 EDT, [facility] #[id number], 180.3, cm, 02/27/22 9:54:00 EDT, Height, 105, kg, 02/26/22 16:23... Start Date: 01/31/23 Status: Ordered Levemir FlexTouch 100 units/mL subcutaneous solution = 42 units, Subcutaneous Injection, Daily at bedtime, use nightly for type 1 DM, # 15 mL, 0 Refills, Maintenance, 11/19/22 14:26:00 EST, [facility] #[id number], 180.3, cm, 02/27/22 9:54:00 EDT, Height, 105, [...] 0 Refills, Maintenance, 10/08/19 16:11:00 EST, Tablet, [facility], 180.34, cm, 10/08/19 12:43:00 EST, [...] Care team information Care Team Personnel Name: Sunshine Avery RN Position: [facility] RN Member Role: Primary Care Nurse Name: Anne Shook NP Position: [facility] PCO Associate Professional Member Role: Primary Care Nurse Address: Address: [address] [place] [address]- Name: Tuyet Mckinley MD Position: [facility] Physician - Primary Care Member Role: PCP Address: Address: [address] [place] [address], [address] Primary Care and Weight Management [place], [place] [address] Name: Torri Lau RN Position: [facility] RN Member Role: Primary Care Nurse Name: Angelia Ordonez RN Position: [facility] RN Member Role: Primary Care Nurse Care Team Related Persons Name: DANIE RODRIGUEZ Address: [address] [address]
--- OUTSIDE RECORDS SUMMARY | 2023-06-24 08:11 | XMS_ITS | Continuity of Care Document ---
Author Name Unknown Organization [facility] Address [address] [place] [id number]- Care Team Providers Care Press Operator Helper Name Role Phone Arlen BRAND, Tuyet Cullen Primary Care Physician [phone] Encounter [facility] ACCT R [id number] Date(s): 02/20/21 - 06/14/21 [facility] [address] [place] [id number] Attending Physician: Lalita Recinos MD Admitting Physician: Lalita Recinos MD Referring Physician: Tuyet Mckinley MD Allergies, Adverse Reactions, Alerts Substance Reaction Severity Status morphine hyperactive Active Medications aspirin 81 mg oral delayed release tablet = 81 mg, By Mouth, Daily, # 30 tablet, 0 Refills, Maintenance, 10/08/19 16:09:00 EST, EC Tablet, [facility], 180.34, cm, 10/08/19 12:43:00 EST, Height, 95.45, kg, 10/06/19 13:17:00 EST,Dry Weight Start Date: 10/08/19 Status: Ordered atorvastatin 80 mg oral tablet 1 tablet = 80 mg, By Mouth, Daily at bedtime, # 30 tablet, 0 Refills, Maintenance, 10/08/19 16:10:00 EST, Tablet, [facility], 180.34, cm, 10/08/19 [...] mL, 11 Refills, Maintenance, 02/03/21 13:43:00 EDT, [facility] #[id number], 180.34, cm, 10/28/19 10:48:00 EST, Height, 95.45, kg,... Start Date: 02/03/21 Status: Ordered Levemir FlexTouch 100 units/mL subcutaneous solution See Instructions, Take 25 units twice daily. E10.9, # 30 mL, 11 Refills, Maintenance, 02/06/21 21:58:00 EDT, [facility] #[id number], 180.34, cm, 10/28/19 10:48:00 EST, Height, 95.45, [...] 1 Refills, Maintenance, 10/08/19 16:11:00 EST, Patch, [facility] 3, 1 patch Topically Daily, [...] 0 Refills, Maintenance, 10/08/19 16:11:00 EST, Tablet, [facility], 180.34, cm, 10/08/19 12:43:00 EST, Height, 95.45, kg, 10/06/1913:17:00 EST, Dry Weight Start Date: 10/08/19 Status: Ordered Toprol XL 50 mg oral tablet, extended release 50 mg, 1, tablet, By Mouth, Daily, # 30 tablet, Refills 0, Tot. Refills 0, Maintenance, 10/08/19 16:10:00 EST, Route to Pharmacy Electronically, [facility], 180.34, cm, 10/08/19 [...]
--- OUTSIDE RECORDS SUMMARY | 2023-06-24 08:11 | XMS_ITS | Continuity of Care Document ---
Author Name Unknown Organization [facility] ter Address [address] [place] [id number]- Care Team Providers Care Formula Technician Name Role Phone Arlen BRAND, Tuyet Cullen Primary Care Physician [phone] [facility] [place] Date(s): 11/04/21 - 11/06/[address] [id number] Encounter Diagnosis ACS (acute coronary syndrome)(Final) - 11/04/21 Discharge Disposition: A-D/C Home Attending Physician: Jordi Alaniz MD Admitting Physician: Jordi Alaniz MD Referring Physician: Not on Staff, Referring [...] Refills, Maintenance, 10/08/19 16:09:00 EST, EC Tablet, [facility], 180.34, cm, 10/08/19 12:43:00 EST, Height, 95.45, kg, 10/06/19 13:17:00 EST,Dry Weight Start Date: 10/08/19 Status: Ordered citalopram 10 mg oral tablet 10 mg, 1, tablet, By Mouth, Daily, # 30 tablet, Refills 0, Maintenance, 10/06/19 14:34:00 EST Start Date: 10/06/19 Status: Ordered Entresto 49 mg-51 mg oral tablet 1 tablet, By Mouth, 2 times a day, # 60 tablet, 0 Refills, Maintenance, 11/06/21 11:08:00 EST, Tablet, [facility] #[id number], Partial fill upon patient request if the [...] mL, 11 Refills, Maintenance, 02/03/21 13:43:00 EDT, [facility] #[id number], 180.34, cm, 10/28/19 10:48:00 EST, Height, 95.45, kg,... Start Date: 02/03/21 Status: Ordered Levemir FlexTouch 100 units/mL subcutaneous solution = 52 units, Subcutaneous Injection, Daily at bedtime, # 30 mL, 11 Refills, Maintenance, 02/06/21 21:58:00 EDT, [facility] #[id number], 180.34, cm, 10/28/19 10:48:00 EST, Height, 95.45, kg, 10/06/19 13:17:00 EST, Dry Weight Start Date: 02/06/21 Status: Ordered metoprolol 25 mg oral tablet 12.5 mg, Tablet, By Mouth, Hold if BP <90/50, HR<55, 11/06/21 9:00:00 EST Start Date: 11/06/21 Stop Date: 11/06/21 Status: Completed phenytoin 100 mg oral capsule, extended release [...] 0 Refills, Maintenance, 10/08/19 16:11:00 EST, Tablet, [facility], 180.34, cm, 10/08/19 12:43:00 EST, Height, 95.45, kg, 10/06/1913:17:00 EST, Dry Weight Start Date: 10/08/19 Status: Ordered Toprol XL 25 mg oral tablet, extended release 25 mg, 1, tablet, By Mouth, Daily, # 90 tablet, Refills 1, Tot. Refills 1, Maintenance, 11/06/21 11:09:00 EST, [id number], Partial fill upon patientrequest if the prescription is for a schedule II op... Start Date: 11/06/21 Status: Ordered Problem List Condition Effective Dates Status Health Status Inform ant CAD (coronary artery disease)(Confirmed) Active Epilepsy(Confirmed) Active HTN (hypertension)(Confirmed) Active Obese class II(Confirmed) Active Positive PPD 11 mm(Confirmed) 1 06/25/12 Active Type 1 diabetes mellitus(Confirmed) Active 1T-Spot test negative on 02/24/13. No further action required. Results Radiology Reports * Exam Date Time Procedure Performing Provider Status 11/04/21 2:42 AM Chest Portable Amanda Walker; Auth ( Verified) Notes: (Chest Portable) Reason For Exam: Chest Pain;Other: RESULT: Chest Portable Chest Portable Reason: Other:; Chest Pain; Clinical Question(s): CHF, COVID Negative. COMPARISON: 10/06/2019 FINDINGS: LINES AND TUBES: None. LUNGS AND PLEURA: Patchy medial left basilar opacity behind the heart. Mild haziness right lung base. No pleural effusion. No pneumothorax. HEART, MEDIASTINUM AND LORI: Normal accounting for leftward rotation. BONES AND SOFT TISSUES: No acute abnormality. IMPRESSION: Mild patchy opacity at the lung bases. WSN: [id number] Ordering Physician: Benjamin Benz Dictated By: Paulino Urias MD Dictated Date/Time: 11/04/21 9:28 am Reviewed By: Paulino Urias MD Signed By: Paulino Urias MD Signed Date/Time: 11/04/21 9:28 am Transcribed By: JAIME Transcribed Date/Time: 11/04/21 9:26 am Vital Signs Most recent to oldest [Reference Range]: 1 2 3 Height 165 cm (11/06/21 2:03 AM) 165 cm (11/05/21 9:44 PM) 165 cm (11/05/21 7:54 PM) Weight 99.4 kg (11/06/21 2:03 AM) 100 kg (11/04/21 5:06 AM) Oxygen Saturation [94-100 %] 100 % (11/06/21 9:00 AM) 99 % (11/06/21 2:03 AM) 99 % (11/05/21 9:44 PM) Pulse Rate [55-90 bpm] 77 bpm (11/06/21 11:52 AM) 76 bpm (11/06/21 9:00 AM) 80 bpm (11/06/21 8:57 AM) Body Mass Index [18.5-24.99] 36.51 *>HHI* (11/06/21 2:03 AM) 36.73 *>HHI* (11/04/21 5:06 AM) Blood Pressure [90-138/55-84 mm Hg] 117/82mm Hg (11/06/21 11:52 AM) 117/76mm Hg (11/06/21 9:00 AM) 110/64mm Hg (11/06/21 8:57 AM) Respiratory Rate [16-30 br/min] 17 br/min (11/06/21 2:03 AM) 18 br/min (11/05/21 9:44 PM) 18 br/min (11/05/21 7:54 PM) Temperature [96.8-100.4 DegF] 99.0 DegF (11/06/21 9:00 AM) 98.5 DegF (11/06/21 2:03 AM) 98.6 DegF (11/05/21 7:54 PM) Liters per Minute 2 L/min (11/04/21 12:00 PM) 2 L/min (11/04/21 11:00 AM) 2 L/min (11/04/21 10:00 AM) Mode of Delivery (Oxygen) Room air (11/06/21 9:00 AM) Room air (11/06/21 2:03 AM) Room air (11/05/21 9:44 PM) Blood pressure sites Arm, right (11/06/21 9:00 AM) Arm, left (11/06/21 2:03 AM) Arm, left (11/05/21 9:44 PM) Temperature Route Oral (11/06/21 9:00 AM) Oral (11/06/21 2:03 AM) Oral (11/05/21 7:54 PM) Dry Weight 100 kg (11/04/21 5:06 AM) Weight Obtained Via Bed scale (11/06/21 2:03 AM) Social History Social History Type Response Tobacco Type: Cigarettes. To bacco use times per day: 10 ciggerettes per day. 20 Number of years:. Total pack years: 10. Sex
--- OUTSIDE RECORDS SUMMARY | 2023-06-24 08:11 | XMS_ITS | Continuity of Care Document ---
Author Name Unknown Organization [facility] ter Address [address] [place] [address]- Care Team Providers Care Bracelet Form Coverer Name Role Phone Tuyet Mckinley MD Primary Care Physician [phone] Encounter [facility] [place] Date(s): 09/12/20 - 11/03/[address] [address] Attending Physician: Lalita Recinos MD Admitting Physician: Lalita Recinos MD Referring Physician: Tuyet Mckinley MD Allergies, Adverse Reactions, Alerts Substance Reaction Severity Status morphine hyperactive Active Medications aspirin 81 mg oral delayed release tablet = 81 mg, By Mouth, Daily, # 30 tablet, 0 Refills, Maintenance, 10/08/19 16:09:00 EST, EC Tablet, [facility], 180.34, cm, 10/08/19 12:43:00 EST, Height, 95.45, kg, 10/06/19 13:17:00 EST,Dry Weight Start Date: 10/08/19 Status: Ordered atorvastatin 80 mg oral tablet 1 tablet = 80 mg, By Mouth, Daily at bedtime, # 30 tablet, 0 Refills, Maintenance, 10/08/19 16:10:00 EST, Tablet, [facility], 180.34, cm, 10/08/19 12:43:00 [...] as directed for Type 1 Diabetes Mellitus, 10/21/20 14:27:00 EST, Compound, 180.34, cm, 10/28/19 10:48:00 EST,Height, 95.45, kg, 10/06/19 13:17:00 EST, Dry Weight Start Date: 10/21/20 Stop Date: 10/16/21 Status: Ordered Humalog Kwik Pen 100 units/mL subcutaneous injection See Instructions, Use as directed for Diabetes Mellitus type 1. Max daily dose 50 units. E10.9. 30 day supply., # 30 mL, 8 Refills, Maintenance, 01/25/20 11:25:00 EDT, [facility] #[id number], 180.34, cm, 10/28/19 10:48:00 EST, Height, 95.45, kg,... Start Date: 01/25/20 Status: Ordered Insulin ASPART Sliding Scale Subcutaneous [...] mL, 11 Refills, Maintenance, 01/19/20 11:19:00 EDT, [facility] #[id number], 180.34, cm, 10/28/19 10:48:00 EST, Height, 95.45, [...] 1 Refills, Maintenance, 10/08/19 16:11:00 EST, Patch, [facility], 1 patch Topically Daily, 180.34, cm, 10/08/19 12:43:00 EST, Height, 95.45, kg, 10/06/19 13:17:00 EST, Dry Weight Start Date: 10/08/19 Stop Date: 11/08/19 Status: Ordered NovoLOG FlexPen 100 units/mL subcutaneous solution See Instructions, Subcutaneous Injection, Use as directed for Diabetes mellitus type 1. (Max Dose =50 units/day), # 30 mL, 11 Refills, Maintenance, 10/09/19 9:57:00 EST, [facility] #[id number],180.34, cm, 10/09/19 9:33:00 EST, Height, 95.45, kg... [...] 0 Refills, Maintenance, 10/08/19 16:11:00 EST, Tablet, [facility], 180.34, cm, 10/08/19 12:43:00 EST, Height, 95.45, kg, 10/06/1913:17:00 EST, Dry Weight Start Date: 10/08/19 Status: Ordered Toprol XL 50 mg oral tablet, extended release 50 mg, 1, tablet, By Mouth, Daily, # 30 tablet, Refills 0, Tot. Refills 0, Maintenance, 10/08/19 16:10:00 EST, Route to Pharmacy Electronically, [facility], 180.34, cm, 10/08/19 12:43:00 EST, Height, 95.45, kg, 10/06/19 13:17:00 EST, Dry... Start Date: 10/08/19 Status: Ordered Problem List Condition Effective Dates Status Health Status Inform ant CAD (coronary artery disease)(Confirmed) Active Epilepsy(Confirmed) Active HTN (hypertension)(Confirmed) Active Positive PPD 11 mm(Confirmed) 1 9/19/12 Active Type 1 diabetes mellitus(Confirmed) Active 1T-Spot test negative on 02/24/13. No further action required. Social History Social History Type Response Tobacco Type: Cigarettes. To bacco use times per day: 10 ciggerettes per day. 20 Number of years:. Total pack years: 10. Sex
--- OUTSIDE RECORDS SUMMARY | 2023-06-24 08:11 | XMS_ITS | Continuity of Care Document ---
Author Name Unknown Organization [facility] ter Address [address] [place] [address]- Care Team Providers Care Forcer Maker Name Role Phone Tuyet Mckinley MD Primary Care Physician Encounter [facility] [place] Date(s): 10/09/19 - 12/06/[address] [address] [facility] Attending Physician: Lalita Recinos MD Admitting Physician: Lalita Recinos MD Referring Physician: Tuyet Mckinley MD Allergies, Adverse Reactions, Alerts Substance Reaction Severity Status morphine hyperactive Active Medications aspirin 81 mg oral delayed release tablet = 81 mg, By Mouth, Daily, # 30 tablet, 0 Refills, Maintenance, 10/08/19 16:09:00 EST, EC Tablet, [facility], 180.34, cm, 10/08/19 12:43:00 EST, Height, 95.45, kg, 10/06/19 13:17:00 EST,Dry Weight Start Date: 10/08/19 Status: Ordered atorvastatin 80 mg oral tablet 1 tablet = 80 mg, By Mouth, Daily at bedtime, # 30 tablet, 0 Refills, Maintenance, 10/08/19 16:10:00 EST, Tablet, [facility], 180.34, cm, 10/08/19 12:43:00 [...] mL, 11 Refills, Maintenance, 10/09/19 9:55:00 EST, [facility][id number], 180.34, cm, 10/09/19 9:33:00 EST, Height, 95.45, [...] 1 Refills, Maintenance, 10/08/19 16:11:00 EST, Patch, [facility], 1 patch Topically Daily, 180.34, cm, 10/08/19 12:43:00 EST, Height, 95.45, kg, 10/06/19 13:17:00 EST, Dry Weight Start Date: 10/08/19 Stop Date: 11/08/19 Status: Ordered NovoLOG FlexPen 100 units/mL subcutaneous solution See Instructions, Subcutaneous Injection, Use as directed for Diabetes mellitus type 1. (Max Dose =50 units/day), # 30 mL, 11 Refills, Maintenance, 10/09/19 9:57:00 EST, [facility] #[id number],180.34, cm, 10/09/19 9:33:00 EST, Height, 95.45, kg... [...] 0 Refills, Maintenance, 10/08/19 16:11:00 EST, Tablet, [facility], 180.34, cm, 10/08/19 12:43:00 EST, Height, 95.45, kg, 10/06/1913:17:00 EST, Dry Weight Start Date: 10/08/19 Status: Ordered Toprol XL 50 mg oral tablet, extended release 50 mg, 1, tablet, By Mouth, Daily, # 30 tablet, Refills 0, Tot. Refills 0, Maintenance, 10/08/19 16:10:00 EST, Route to Pharmacy Electronically, [facility], 180.34, cm, 10/08/19 12:43:00 [...]
--- OUTSIDE RECORDS SUMMARY | 2023-06-24 08:11 | XMS_ITS | Continuity of Care Document ---
Author Name Unknown Organization [facility] Address [address] [place] [address]- Care Team Providers Care Licensing Coordinator Name Role Phone Rosaura BRAND, Essie D Primary Care Physician Encounter [facility] [place] Date(s): 03/06/22 - 03/07/[address] [id number] Encounter Diagnosis TIA (transient ischemic attack)(Final) - 03/06/22 Discharge Disposition: A-D/C Home Attending Physician: Gonzalez Tolbert MD Admitting Physician: Shanelle Matos MD Referring Physician: Not on Staff, Referring [...] Refills, Maintenance, 10/08/19 16:09:00 EST, EC Tablet, [facility], 180.34, cm, 10/08/19 12:43:00 EST, Height, 95.45, kg, 10/06/19 13:17:00 EST,Dry Weight Start Date: 10/08/19 Status: Ordered atorvastatin 80 mg oral tablet 1 tablet = 80 mg, By Mouth, Daily, # 30 tablet, 5 Refills, Maintenance, 11/12/21 5:10:00 EST, Tablet, [facility][id number], Partial fill upon patient request if the prescription is for a schedule II opioid drug., 165, cm, 11/06/21 2:03:00 EST,... Start Date: 11/12/21 Stop Date: 05/11/22 Status: Ordered carvedilol 3.125 mg oral tablet 3.125 mg, Tablet, By Mouth, 03/07/22 9:00:00 EDT Start Date: 03/07/22 Stop Date: 03/07/22 Status: Completed carvedilol 6.25 mg oral tablet 6.25 mg, [...] 0 Refills, Maintenance, 11/06/21 11:08:00 EST, Tablet, [facility] #[id number], Partial fill upon patient request if the [...] mL, 11 Refills, Maintenance, 11/15/21 15:10:00 EST, [facility][id number], 165,... Start Date: 11/15/21 Status: Ordered Levemir FlexTouch 100 units/mL subcutaneous solution = 42 units, Subcutaneous Injection, Daily at bedtime, use nightly for type 1 DM, # 15 mL, 11 Refills, Maintenance, 11/15/21 15:09:00 EST, [facility] #[id number], 165, cm, 11/06/21 2:03:00 EST, Height, 100, kg, 11/04/21 5:38:00 EST, Dry Weight Start Date: 11/15/21 Status: Ordered nitroglycerin 0.3 mg sublingual tablet [...] 0 Refills, Maintenance, 10/08/19 16:11:00 EST, Tablet, [facility], 180.34, cm, 10/08/19 12:43:00 EST, Height, 95.45, kg, 10/06/1913:17:00 EST, Dry Weight Start Date: 10/08/19 Status: Ordered torsemide 20 mg oral tablet 1 tablet = 20 mg, By Mouth, Daily, 0 Refills, Maintenance, 01/25/22 17:42:00 EDT, Partial fill uponpatient request if the prescription is for a schedule II opioid drug. Start Date: 01/25/22 Status: Ordered Tylenol 325 mg oral tablet 650 mg, Tablet, By Mouth, Every 6 hours, PRN for Pain , Moderate, Routine, 03/07/22 0:22:00 EDT Start Date: 03/07/22 Stop Date: 03/07/22 Status: Discontinued Problem List Condition Effective Dates Status Health Status Inform ant CAD (coronary artery disease)(Confirmed) Active Epilepsy(Confirmed) Active HTN (hypertension)(Confirmed) Active Obese class I(Confirmed) Active Positive PPD 11 mm(Confirmed) 1 06/25/12 Active Type 1 diabetes mellitus(Confirmed) Active 1T-Spot test negative on 02/24/13. No further action required. Results Radiology Reports * Exam Date Time Procedure Performing Provider Status 03/06/22 5:35 PM Chest Portable Sabiha Stafford ( Verified) Notes: (Chest Portable) Reason For Exam: Stroke;Other: RESULT: Chest Portable Chest Portable Hx of Present Illness: Pt coming from home with new onset of increased left side weakness and facial droop. Family stated drooling nited. Shaking on left side. Per EMS slow movemnt on left side; Reason: Other:; Stroke; Clinical Question(s): CHF COMPARISON: None. FINDINGS: LINES AND TUBES: None. LUNGS AND PLEURA: No focal consolidation or overt pulmonary edema.. No pleural effusion. No pneumothorax. HEART, MEDIASTINUM AND LORI: Heart is normal in size. Normal upper mediastinal and hilar contour. BONES AND SOFT TISSUES: No acute abnormality. IMPRESSION: No acute abnormality. WSN: [id number] Ordering Physician: Ivan Adams Dictated By: Gabriele Hopson MD Dictated Date/Time: 03/06/22 5:41 pm Reviewed By: Gabriele Hopson MD Signed By: Gabriele Hopson MD Signed Date/Time: 03/06/22 5:41 pm Transcribed By: JAIME Transcribed Date/Time: 03/06/22 5:40 pm Vital Signs Most recent to oldest [Reference Range]: 1 2 3 Weight 102.3 kg (03/06/22 4:38 PM) Oxygen Saturation [94-100 %] 99 % (03/07/22 7:24 AM) 100 % (03/07/22 2:39 AM) 97 % (03/07/22 12:52 AM) Pulse Rate [55-90 bpm] 73 bpm (03/07/22 8:34 AM) 71 bpm (03/07/22 7:24 AM) 68 bpm (03/07/22 2:39 AM) Blood Pressure [90-138/55-84 mm Hg] 112/78mm Hg (03/07/22 8:34 AM) 108/73mm Hg (03/07/22 7:24 AM) 111/62mm Hg (03/07/22 2:39 AM) Respiratory Rate [16-30 br/min] 16 br/min (03/07/22 7:24 AM) 14 br/min *L* (03/07/22 2:39 AM) 13 br/min *L* (03/07/22 1:02 AM) Temperature [96.8-100.4 DegF] 98.3 DegF (03/06/22 8:51 PM) 98.7 DegF (03/06/22 7:22 PM) 98.9 DegF (03/06/22 5:06 PM) Mode of Delivery (Oxygen) Room air (03/07/22 7:24 AM) Room air (03/07/22 12:00 AM) Room air (03/06/22 11:00 PM) Blood pressure sites Arm, left (03/06/22 11:00 PM) Arm, left (03/06/22 8:51 PM) Arm, left (03/06/22 7:22 PM) Temperature Route Oral (03/06/22 8:51 PM) Oral (03/06/22 7:22 PM) Oral (03/06/22 5:06 PM) Social History Social History Type Response Tobacco Type: Cigarettes. To bacco use times per day: 10 ciggerettes per day. 20 Number of years:. Total pack years: 10. Sex
--- OUTSIDE RECORDS SUMMARY | 2023-06-24 08:11 | XMS_ITS | Continuity of Care Document ---
Author Name Unknown Organization [facility] Address [address] [place] [address]- Care Team Providers Care Lead Project Manager Name Role Phone Arlen BRAND, Tuyet Cullen Primary Care Physician Encounter [facility] [place] Date(s): 09/05/21 - 10/05/21 [facility] [address] [place] [address] Attending Physician: Leonard Ramírez Admitting Physician: Admtr, ArZev Referring Physician: Admtr, Ar8 Allergies, Adverse Reactions, Alerts Substance Reaction Severity Status morphine hyperactive Active Medications aspirin 81 mg oral delayed release tablet = 81 mg, By Mouth, Daily, # 30 tablet, 0 Refills, Maintenance, 10/08/19 16:09:00 EST, EC Tablet, [facility], 180.34, cm, 10/08/19 12:43:00 EST, Height, 95.45, kg, 10/06/19 13:17:00 EST,Dry Weight Start Date: 10/08/19 Status: Ordered atorvastatin 80 mg oral tablet 1 tablet = 80 mg, By Mouth, Daily at bedtime, # 30 tablet, 0 Refills, Maintenance, 10/08/19 16:10:00 EST, Tablet, [facility], 180.34, cm, 10/08/19 12:43:00 [...] mL, 11 Refills, Maintenance, 02/03/21 13:43:00 EDT, [facility][id number], 180.34, cm, 10/28/19 10:48:00 EST, Height, 95.45, kg,... Start Date: 02/03/21 Status: Ordered Levemir FlexTouch 100 units/mL subcutaneous solution See Instructions, Take 25 units twice daily. E10.9, # 30 mL, 11 Refills, Maintenance, 02/06/21 21:58:00 EDT, [facility] #[id number], 180.34, cm, 10/28/19 10:48:00 EST, Height, 95.45, [...] 1 Refills, Maintenance, 10/08/19 16:11:00 EST, Patch, [facility], 1 patch Topically Daily, [...] 0 Refills, Maintenance, 10/08/19 16:11:00 EST, Tablet, [facility], 180.34, cm, 10/08/19 12:43:00 EST, Height, 95.45, kg, 10/06/1913:17:00 EST, Dry Weight Start Date: 10/08/19 Status: Ordered Toprol XL 50 mg oral tablet, extended release 50 mg, 1, tablet, By Mouth, Daily, # 30 tablet, Refills 0, Tot. Refills 0, Maintenance, 10/08/19 16:10:00 EST, Route to Pharmacy Electronically, [facility], 180.34, cm, 10/08/19 12:43:00 [...]
--- OUTSIDE RECORDS SUMMARY | 2023-06-24 08:11 | XMS_ITS | Continuity of Care Document ---
Author Name Unknown Organization [facility] Address [address] [place] [address]- Care Team Providers Care Radiology Administrator Name Role Phone Tuyet Mckinley MD Primary Care Physician [phone] En[place] [facility] [place]15[place]21 - 12/15/21 [facility] [address] [place] [address] Attending Physician: Lalita Recinos MD [...] Refills, Maintenance, 10/08/19 16:09:00 EST, EC Tablet, [facility], 180.34, cm, 10/08/19 12:43:00 EST, Height, 95.45, kg, 10/06/19 13:17:00 EST,Dry Weight Start Date: 10/08/19 Status: Ordered atorvastatin 80 mg oral tablet 1 tablet = 80 mg, By Mouth, Daily, # 30 tablet, 5 Refills, Maintenance, 11/12/21 5:10:00 EST, Tablet, [facility] #[id number], Partial fill upon patient request if the [...] 0 Refills, Maintenance, 11/06/21 11:08:00 EST, Tablet, [facility] #[id number], Partial fill upon patient request if the [...] mL, 11 Refills, Maintenance, 11/15/21 15:10:00 EST, [facility] #[id number], 165,... Start Date: 11/15/21 Status: Ordered Levemir FlexTouch 100 units/mL subcutaneous solution = 42 units, Subcutaneous Injection, Daily at bedtime, use nightly for type 1 DM, # 15 mL, 11 Refills, Maintenance, 11/15/21 15:09:00 EST, [facility] #[id number], 165, cm, 11/06/21 2:03:00 EST, Height, 100, [...] 0 Refills, Maintenance, 10/08/19 16:11:00 EST, Tablet, [facility], 180.34, cm, 10/08/19 12:43:00 EST, Height, 95.45, kg, 10/06/1913:17:00 EST, Dry Weight Start Date: 10/08/19 Status: Ordered Toprol XL 25 mg oral tablet, extended release 25 mg, 1, tablet, By Mouth, Daily, # 90 tablet, Refills 1, Tot. Refills 1, Maintenance, 11/06/21 11:09:00 EST, Route to Pharmacy Electronically, [facility] #[id number], Partial fill upon patientrequest if the prescription [...]
--- OUTSIDE RECORDS SUMMARY | 2023-06-24 08:11 | XMS_ITS | Continuity of Care Document ---
Author Name Unknown Organization [facility] Address [address] [place] [address]- Care Team Providers Care Meal Temperer Name Role Phone Arlen BRAND, Tuyet Cullen Primary Care Physician Encounter [facility] [place] Date(s): 02/20/21 - 03/22/21 [facility] [address] [place] [id number] Attending Physician: Leonard Ramírez Admitting Physician: AdmtrLeonard Referring Physician: Admtr, Ar8 Allergies, Adverse Reactions, Alerts Substance Reaction Severity Status morphine hyperactive Active Medications aspirin 81 mg oral delayed release tablet = 81 mg, By Mouth, Daily, # 30 tablet, 0 Refills, Maintenance, 10/08/19 16:09:00 EST, EC Tablet, [facility], 180.34, cm, 10/08/19 12:43:00 EST, Height, 95.45, kg, 10/06/19 13:17:00 EST,Dry Weight Start Date: 10/08/19 Status: Ordered atorvastatin 80 mg oral tablet 1 tablet = 80 mg, By Mouth, Daily at bedtime, # 30 tablet, 0 Refills, Maintenance, 10/08/19 16:10:00 EST, Tablet, [facility], 180.34, cm, 10/08/19 [...] mL, 11 Refills, Maintenance, 02/03/21 13:43:00 EDT, [facility] #[id number], 180.34, cm, 10/28/19 10:48:00 EST, Height, 95.45, kg,... Start Date: 02/03/21 Status: Ordered Levemir FlexTouch 100 units/mL subcutaneous solution See Instructions, Take 25 units twice daily. E10.9, # 30 mL, 11 Refills, Maintenance, 02/06/21 21:58:00 EDT, [facility] #[id number], 180.34, cm, 10/28/19 10:48:00 EST, Height, 95.45, [...] 1 Refills, Maintenance, 10/08/19 16:11:00 EST, Patch, [facility], 1 patch Topically Daily, 180.34, [...] Refills, Maintenance, 10/08/19 16:11:00 EST, Tablet, [facility], 180.34, cm, 10/08/19 12:43:00 EST, Height, 95.45, kg, 10/06/1913:17:00 EST, Dry Weight Start Date: 10/08/19 Status: Ordered Toprol XL 50 mg oral tablet, extended release 50 mg, 1, tablet, By Mouth, Daily, # 30 tablet, Refills 0, Tot. Refills 0, Maintenance, 10/08/19 16:10:00 EST, Route to Pharmacy Electronically, [facility], 180.34, cm, 10/08/19 [...]
--- OUTSIDE RECORDS SUMMARY | 2023-06-24 08:11 | XMS_ITS | Continuity of Care Document ---
Author Name Unknown Organization [facility] Address [address] [place] [address]- Care Team Providers Care Sheet Sorter Name Role Phone Rosaura BRAND, Essie Dillon Primary Care Physician En[place] [facility] [place] Date(s): 11/30/21 - 02/25/22 [facility] Diabetes [address] [place] [id number] Attending Physician: Belen Arriaza DO Admitting Physician: Belen Arriaza DO Allergies, Adverse Reactions, Alerts Substance Reaction Severity [...] Refills, Maintenance, 10/08/19 16:09:00 EST, EC Tablet, [facility], 180.34, cm, 10/08/19 12:43:00 EST, Height, 95.45, kg, 10/06/19 13:17:00 EST,Dry Weight Start Date: 10/08/19 Status: Ordered atorvastatin 80 mg oral tablet 1 tablet = 80 mg, By Mouth, Daily, # 30 tablet, 5 Refills, Maintenance, 11/12/21 5:10:00 EST, Tablet, [facility] #[id number], Partial fill upon patient request if the [...] 0 Refills, Maintenance, 11/06/21 11:08:00 EST, Tablet, [facility] #[id number], Partial fill upon patient request if the [...] mL, 11 Refills, Maintenance, 11/15/21 15:10:00 EST, [facility] #[id number], 165,... Start Date: 11/15/21 Status: Ordered Levemir FlexTouch 100 units/mL subcutaneous solution = 42 units, Subcutaneous Injection, Daily at bedtime, use nightly for type 1 DM, # 15 mL, 11 Refills, Maintenance, 11/15/21 15:09:00 EST, [facility] #[id number], 165, cm, 11/06/21 2:03:00 EST, Height, 100, [...] opioid drug. Start Date: 11/04/21 Status: Ordered ProAir HFA Inhalation, Every 6 hours, 0 Refills, Maintenance, 01/25/22 17:46:00 EDT, Partial fill upon patientrequest if the prescription is for a schedule II opioid drug. Start Date: 01/25/22 Status: Ordered ticagrelor 90 mg oral tablet 1 tablet = 90 mg, By Mouth, 2 times a day, # 60 tablet, 0 Refills, Maintenance, 10/08/19 16:11:00 EST, Tablet, [facility], 180.34, cm, 10/08/19 12:43:00 EST, Height, 95.45, kg, 10/06/1913:17:00 EST, Dry Weight Start Date: 10/08/19 Status: Ordered torsemide 20 mg oral tablet 1 tablet = 20 mg, By Mouth, Daily, 0 Refills, Maintenance, 01/25/22 17:42:00 EDT, Partial fill uponpatient request if the prescription is for a schedule II opioid drug. Start Date: 01/25/22 Status: Ordered Problem List Condition Effective Dates [...]
--- OUTSIDE RECORDS SUMMARY | 2023-06-24 08:11 | XMS_ITS | Continuity of Care Document ---
Author Name Unknown Organization [facility] Address [address] [place] [address]- Care Team Providers Care Drawer Maker Name Role Phone Rosaura BRAND, Essie Dillon Primary Care Physician [place] [facility] [place] 07/25/22 - 08/24/22 [facility] [address] [place] [id number] Allergies, Adverse Reactions, Alerts Substance Reaction Severity [...] Refills, Maintenance, 10/08/19 16:09:00 EST, EC Tablet, [facility], 180.34, cm, 10/08/19 12:43:00 EST, Height, 95.45, kg, 10/06/19 13:17:00 EST,Dry Weight Start Date: 10/08/19 Status: Ordered atorvastatin 80 mg oral tablet 1 tablet = 80 mg, By Mouth, Daily, # 30 tablet, 5 Refills, Maintenance, 11/12/21 5:10:00 EST, Tablet, [facility] #[id number], Partial fill upon patient request if the [...] 0 Refills, Maintenance, 11/06/21 11:08:00 EST, Tablet, [facility] #[id number], Partial fill upon patient request if the [...] supply., # 30 mL, 11 Refills, Maintenance, 07/27/22 15:50:00 EDT, [facility] #[id number], 180.3, cm, 02/27/22 9:54:00 EDT, Height,... Start Date: 07/27/22 Status: Ordered Levemir FlexTouch 100 units/mL subcutaneous solution = 42 units, Subcutaneous Injection, Daily at bedtime, use nightly for type 1 DM, # 15 mL, 11 Refills, Maintenance, 05/28/22 14:11:00 EDT, [facility] #[id number], 180.3, cm, 02/27/22 9:54:00 EDT,Height, 105, kg, [...] 0 Refills, Maintenance, 10/08/19 16:11:00 EST, Tablet, [facility], 180.34, cm, 10/08/19 12:43:00 EST, Height, [...] Care team information Care Team Personnel Name: Essie Kaplan MD Position: [facility] Physician (General Medicine) Member Role: PCP Address: Address: [address] [place] [address]- Name: Jermain Benavidez RN Position: [facility] RN Supv Member Role: Primary Care Nurse Name: Sunshine Avery RN Position: [facility] RN Member Role: Primary Care Nurse Name: Anne Shook NP Position: [facility] Associate Professional Member Role: Primary Care Nurse Address: Address: [address] [place] [address]- Name: Betsy Roque Position: S RN Member Role: Primary Care Nurse Name: Torri Lau RN Position: [facility] RN Member Role: Primary Care Nurse Name: Angelia Ordonez RN Position: [facility] RN Member Role: Primary Care Nurse Care Team Related Persons Name: DANIE RODRIGUEZ Address: [address] [address]
--- OUTSIDE RECORDS SUMMARY | 2023-06-24 08:11 | XMS_ITS | Continuity of Care Document ---
Author Name Unknown Organization [facility] Diabetes Address [address] [place] [address]- Care Team Providers Care Route Delivery Driver Name Role Phone Tuyet Mckinley MD Primary Care Physician En[place] [facility] [place] [facility] [place] [id number] Date(s): 11/22/20 - 03/22/21 [facility] [address] [place] [id number] Attending Physician: Lalita Recinos MD Admitting Physician: Lalita Recinos MD Referring Physician: Tuyet Mckinley MD Allergies, Adverse Reactions, Alerts Substance Reaction Severity Status morphine hyperactive Active Medications aspirin 81 mg oral delayed release tablet = 81 mg, By Mouth, Daily, # 30 tablet, 0 Refills, Maintenance, 10/08/19 16:09:00 EST, EC Tablet, [facility], 180.34, cm, 10/08/19 12:43:00 EST, Height, 95.45, kg, 10/06/19 13:17:00 EST,Dry Weight Start Date: 10/08/19 Status: Ordered atorvastatin 80 mg oral tablet 1 tablet = 80 mg, By Mouth, Daily at bedtime, # 30 tablet, 0 Refills, Maintenance, 10/08/19 16:10:00 EST, Tablet, [facility], 180.34, cm, 10/08/19 [...] mL, 11 Refills, Maintenance, 02/03/21 13:43:00 EDT, [facility] #[id number], 180.34, cm, 10/28/19 10:48:00 EST, Height, 95.45, kg,... Start Date: 02/03/21 Status: Ordered Levemir FlexTouch 100 units/mL subcutaneous solution See Instructions, Take 25 units twice daily. E10.9, # 30 mL, 11 Refills, Maintenance, 02/06/21 21:58:00 EDT, [facility] #[id number], 180.34, cm, 10/28/19 10:48:00 EST, Height, 95.45, [...] 1 Refills, Maintenance, 10/08/19 16:11:00 EST, Patch, [facility], 1 patch Topically Daily, 180.34, [...] 0 Refills, Maintenance, 10/08/19 16:11:00 EST, Tablet, [facility], 180.34, cm, 10/08/19 12:43:00 EST, Height, 95.45, kg, 10/06/1913:17:00 EST, Dry Weight Start Date: 10/08/19 Status: Ordered Toprol XL 50 mg oral tablet, extended release 50 mg, 1, tablet, By Mouth, Daily, # 30 tablet, Refills 0, Tot. Refills 0, Maintenance, 10/08/19 16:10:00 EST, Route to Pharmacy Electronically, [facility], 180.34, cm, 10/08/19 [...]
--- OUTSIDE RECORDS SUMMARY | 2023-06-24 08:11 | XMS_ITS | Continuity of Care Document ---
Author Name Unknown Organization [facility] Diabetes Address [address] [place] [address]- Care Team Providers Care Check Totaler Name Role Phone Rosaura BRAND, Essie Dillon Primary Care Physician [phone] Encounter [facility] [place] Date(s): 06/04/22 - 07/04/22 [facility] Diabetes [address] [place] [id number] Allergies, Adverse Reactions, Alerts Substance [...] Refills, Maintenance, 10/08/19 16:09:00 EST, EC Tablet, [facility], 180.34, cm, 10/08/19 12:43:00 EST, Height, 95.45, kg, 10/06/19 13:17:00 EST,Dry Weight Start Date: 10/08/19 Status: Ordered atorvastatin 80 mg oral tablet 1 tablet = 80 mg, By Mouth, Daily, # 30 tablet, 5 Refills, Maintenance, 11/12/21 5:10:00 EST, Tablet, [email or web address] #[id number], Partial fill upon patient request if the [...] 0 Refills, Maintenance, 11/06/21 11:08:00 EST, Tablet, [facility] #[id number], Partial fill upon patient request if the [...] mL, 11 Refills, Maintenance, 11/15/21 15:10:00 EST, [facility] #[id number], 165,... Start Date: 11/15/21 Status: Ordered Levemir FlexTouch 100 units/mL subcutaneous solution = 42 units, Subcutaneous Injection, Daily at bedtime, use nightly for type 1 DM, # 15 mL, 11 Refills, Maintenance, 05/28/22 14:11:00 EDT, [facility] #[id number], 180.3, cm, 02/27/22 9:54:00 EDT,Height, 105, kg, [...] 0 Refills, Maintenance, 10/08/19 16:11:00 EST, Tablet, [facility], 180.34, cm, 10/08/19 12:43:00 EST, [...] Name: Rosaura BRAND, Essie Dillon Address: Address: [address] [place] [address]
--- OUTSIDE RECORDS SUMMARY | 2023-06-24 08:12 | XMS_ITS | Continuity of Care Document ---
Author Name Unknown Organization [facility] Diabetes Address [address] [place] [address]- Care Team Providers Care Furniture Mover Driver Name Role Phone Arlen BRAND, Tuyet Cullen Primary Care Physician [place] [facility] [place]03[place]21 - 03/05/21 [facility]ology and Diabetes [address] [place] [id number] Allergies, Adverse Reactions, Alerts Substance Reaction Severity Status morphine hyperactive Active Medications aspirin 81 mg oral delayed release tablet = 81 mg, By Mouth, Daily, # 30 tablet, 0 Refills, Maintenance, 10/08/19 16:09:00 EST, EC Tablet, [facility], 180.34, cm, 10/08/19 12:43:00 EST, Height, 95.45, kg, 10/06/19 13:17:00 EST,Dry Weight Start Date: 10/08/19 Status: Ordered atorvastatin 80 mg oral tablet 1 tablet = 80 mg, By Mouth, Daily at bedtime, # 30 tablet, 0 Refills, Maintenance, 10/08/19 16:10:00 EST, Tablet, [facility], 180.34, cm, 10/08/19 [...] mL, 11 Refills, Maintenance, 02/03/21 13:43:00 EDT, [facility] #[id number], 180.34, cm, 10/28/19 10:48:00 EST, Height, 95.45, kg,... Start Date: 02/03/21 Status: Ordered Levemir FlexTouch 100 units/mL subcutaneous solution See Instructions, Take 25 units twice daily. E10.9, # 30 mL, 11 Refills, Maintenance, 02/06/21 21:58:00 EDT, [facility] #[id number], 180.34, cm, 10/28/19 10:48:00 EST, Height, 95.45, [...] 1 Refills, Maintenance, 10/08/19 16:11:00 EST, Patch, [facility], 1 patch Topically Daily, [...] 0 Refills, Maintenance, 10/08/19 16:11:00 EST, Tablet, [facility], 180.34, cm, 10/08/19 12:43:00 EST, Height, 95.45, kg, 10/06/1913:17:00 EST, Dry Weight Start Date: 10/08/19 Status: Ordered Toprol XL 50 mg oral tablet, extended release 50 mg, 1, tablet, By Mouth, Daily, # 30 tablet, Refills 0, Tot. Refills 0, Maintenance, 10/08/19 16:10:00 EST, Route to Pharmacy Electronically, [facility], 180.34, cm, 10/08/19 [...]
--- OUTSIDE RECORDS SUMMARY | 2023-06-24 08:12 | XMS_ITS | Continuity of Care Document ---
Author Name Unknown Organization [facility] [place] Address [address] [place] [address]- Care Team Providers Care Traveler Changer Name Role Phone Tuyet Mckinley MD Primary Care Physician Encounter [facility] [id number] Date(s): 04/21/20 - 05/21/20 [facility] [place] [address] [place] [address]- [facility] Attending Physician: Leonard Ramírez Admitting Physician: Admtr, Leonard Referring Physician: Admtr, Ar8 Allergies, Adverse Reactions, Alerts Substance Reaction Severity Status morphine hyperactive Active Medications aspirin 81 mg oral delayed release tablet = 81 mg, By Mouth, Daily, # 30 tablet, 0 Refills, Maintenance, 10/08/19 16:09:00 EST, EC Tablet, [facility], 180.34, cm, 10/08/19 12:43:00 EST, Height, 95.45, kg, 10/06/19 13:17:00 EST,Dry Weight Start Date: 10/08/19 Status: Ordered atorvastatin 80 mg oral tablet 1 tablet = 80 mg, By Mouth, Daily at bedtime, # 30 tablet, 0 Refills, Maintenance, 10/08/19 16:10:00 EST, Tablet, [facility], 180.34, cm, 10/08/19 [...] Date: 01/19/20 Stop Date: 01/13/21 Status: Ordered Humalog Kwik Pen 100 units/mL subcutaneous injection See Instructions, Use as directed for Diabetes Mellitus type 1. Max daily dose 50 units. E10.9. 30 day supply., # 30 mL, 8 Refills, Maintenance, 01/25/20 11:25:00 EDT, [facility] #[id number], 180.34, cm, 10/28/19 10:48:00 EST, Height, 95.45, [...] mL, 11 Refills, Maintenance, 01/19/20 11:19:00 EDT, [facility] #[id number], 180.34, cm, 10/28/19 10:48:00 EST, Height, 95.45, [...] 1 Refills, Maintenance, 10/08/19 16:11:00 EST, Patch, [facility], 1 patch Topically Daily, 180.34, cm, 10/08/19 12:43:00 EST, Height, 95.45, kg, 10/06/19 13:17:00 EST, Dry Weight Start Date: 10/08/19 Stop Date: 11/08/19 Status: Ordered NovoLOG FlexPen 100 units/mL subcutaneous solution See Instructions, Subcutaneous Injection, Use as directed for Diabetes mellitus type 1. (Max Dose =50 units/day), # 30 mL, 11 Refills, Maintenance, 10/09/19 9:57:00 EST, [facility] #[id number],180.34, cm, 10/09/19 9:33:00 EST, Height, 95.45, kg... [...] 0 Refills, Maintenance, 10/08/19 16:11:00 EST, Tablet, [facility], 180.34, cm, 10/08/19 12:43:00 EST, Height, 95.45, kg, 10/06/1913:17:00 EST, Dry Weight Start Date: 10/08/19 Status: Ordered Toprol XL 50 mg oral tablet, extended release 50 mg, 1, tablet, By Mouth, Daily, # 30 tablet, Refills 0, Tot. Refills 0, Maintenance, 10/08/19 16:10:00 EST, Route to Pharmacy Electronically, [facility], 180.34, cm, 10/08/19 12:43:00 [...]
--- OUTSIDE RECORDS SUMMARY | 2023-06-24 08:12 | XMS_ITS | Continuity of Care Document ---
Author Name Unknown Organization [facility] Address [address] [place] [address]- Care Team Providers Care Coach Wirer Name Role Phone Tuyet Mckinley MD Primary Care Physician [phone] [place] [facility] [place](s): 11/08/22 - 01/16/23 [facility] [address] [place] [id number] Attending Physician: Anna Durham MD Admitting [...] Refills, Maintenance, 10/08/19 16:09:00 EST, EC Tablet, [facility], 180.34, cm, 10/08/19 12:43:00 EST, Height, 95.45, kg, 10/06/19 13:17:00 EST,Dry Weight Start Date: 10/08/19 Status: Ordered atorvastatin 80 mg oral tablet 1 tablet = 80 mg, By Mouth, Daily, # 30 tablet, 5 Refills, Maintenance, 11/12/21 5:10:00 EST, Tablet, [facility] #[id number], Partial fill upon patient request if the [...] 0 Refills, Maintenance, 11/06/21 11:08:00 EST, Tablet, [facility] #[id number], Partial fill upon patient request if the [...] mL, 0 Refills, Maintenance, 11/19/22 14:25:00 EST, [facility] #[id number], 180.3, cm, 02/27/22 9:54:00 EDT, Height, 1... Start Date: 11/19/22 Status: Ordered Levemir FlexTouch 100 units/mL subcutaneous solution = 42 units, Subcutaneous Injection, Daily at bedtime, use nightly for type 1 DM, # 15 mL, 0 Refills, Maintenance, 11/19/22 14:26:00 EST, [facility][id number], 180.3, cm, 02/27/22 9:54:00 EDT, Height, 105, [...] 0 Refills, Maintenance, 10/08/19 16:11:00 EST, Tablet, [facility], 180.34, cm, 10/08/19 12:43:00 EST, Height, [...] Team Personnel Name: Jermain Benavidez RN Position: [facility] RN Supv Member Role: Primary Care Nurse Name: Sunshine Avery RN Position: S RN Member Role: Primary Care Nurse Name: Anne Shook NP Position: [facility] Associate Professional Member Role: Primary Care Nurse Address: Address: [address] [place] [address] Name: Tuyet Mckinley MD Position: [facility] Physician (General Medicine) Member Role: PCP Address: Address: [address] [place] [address], [address] Primary Care [place] [address]- Name: Torri Lau RN Position: [facility] RN Member Role: Primary Care Nurse Name: Angelia Ordonez RN Position: [facility] RN Member Role: Primary Care Nurse Care Team Related Persons Name: DANIE RODRIGUEZ Address: home [address] [place] [address]
--- OUTSIDE RECORDS SUMMARY | 2023-06-24 08:12 | XMS_ITS | Continuity of Care Document ---
Author Name Unknown Organization [facility] Address [address] [place] [address]- Care Team Providers Care Clinical Laboratory Service Teacher Name Role Phone Rosaura BRAND, Essie D Primary Care Physician Encounter [facility] [place] Date(s): 01/25/22 - 03/03/22 [facility] [address] [place] [email or web address] Attending Physician: Anna Durham MD Admitting Physician: [...] Refills, Maintenance, 10/08/19 16:09:00 EST, EC Tablet, [facility], 180.34, cm, 10/08/19 12:43:00 EST, Height, 95.45, kg, 10/06/19 13:17:00 EST,Dry Weight Start Date: 10/08/19 Status: Ordered atorvastatin 80 mg oral tablet 1 tablet = 80 mg, By Mouth, Daily, # 30 tablet, 5 Refills, Maintenance, 11/12/21 5:10:00 EST, Tablet, [facility] #[id number], Partial fill upon patient request if the [...] 0 Refills, Maintenance, 11/06/21 11:08:00 EST, Tablet, [facility] #[id number], Partial fill upon patient request if the [...] mL, 11 Refills, Maintenance, 11/15/21 15:10:00 EST, [facility] #[id number], 165,... Start Date: 11/15/21 Status: Ordered Levemir FlexTouch 100 units/mL subcutaneous solution = 42 units, Subcutaneous Injection, Daily at bedtime, use nightly for type 1 DM, # 15 mL, 11 Refills, Maintenance, 11/15/21 15:09:00 EST, [facility] #[id number], 165, cm, 11/06/21 2:03:00 EST, Height, 100, [...] 0 Refills, Maintenance, 10/08/19 16:11:00 EST, Tablet, [facility] 3, 180.34, cm, 10/08/19 12:43:00 EST, [...]
--- OUTSIDE RECORDS SUMMARY | 2023-06-24 08:12 | XMS_ITS | Continuity of Care Document ---
Author Name Unknown Organization [facility] Diabetes Address [address] [place] [address]- Care Team Providers Care Conduit Installer Name Role Phone Tuyet Mckinley MD Primary Care Physician En[place] [facility] [place] Date(s): 04/04/23 - 05/04/23 [facility] Diabetes [address] [place] [id number] Attending Physician: Leonard Ramírez Admitting [...] Refills, Maintenance, 10/08/19 16:09:00 EST, EC Tablet, [facility], 180.34, cm, 10/08/19 12:43:00 EST, Height, 95.45, kg, 10/06/19 13:17:00 EST,Dry Weight Start Date: 10/08/19 Status: Ordered atorvastatin 80 mg oral tablet 1 tablet = 80 mg, By Mouth, Daily, # 30 tablet, 5 Refills, Maintenance, 11/12/21 5:10:00 EST, Tablet, [facility] #[id number], Partial fill upon patient request if the [...] 0 Refills, Maintenance, 11/06/21 11:08:00 EST, Tablet, [facility] #[id number], Partial fill upon patient request if the [...] mL, 0 Refills, Maintenance, 01/31/23 10:13:00 EDT, [facility] #[id number], 180.3, cm, 02/27/22 9:54:00 EDT, Height, 105, kg, 02/26/22 16:23... Start Date: 01/31/23 Status: Ordered Levemir FlexTouch 100 units/mL subcutaneous solution = 42 units, Subcutaneous Injection, Daily at bedtime, use nightly for type 1 DM, # 15 mL, 0 Refills, Maintenance, 11/19/22 14:26:00 EST, [facility] #[id number], 180.3, cm, 02/27/22 9:54:00 EDT, Height, 105, [...] 0 Refills, Maintenance, 10/08/19 16:11:00 EST, Tablet, [facility], 180.34, cm, 10/08/19 [...] Team Personnel Name: Sunshine Avery RN Position: [facility] RN Member Role: Primary Care Nurse Name: Anne Shook NP Position: [facility] Associate Professional Member Role: Primary Care Nurse Address: Address: [address] [place] [address]- Name: Tuyet Mckinley MD Position: [facility] Physician - Primary Care Member Role: PCP Address: Address: [address] [place] [address], [address] Primary Care and Weight Management [place], [place] [address] Name: Torri Lau RN Position: [facility] RN Member Role: Primary Care Nurse Name: Angelia Ordonez RN Position: [facility] RN Member Role: Primary Care Nurse Care Team Related Persons Name: DANIE RODRIGUEZ Address: [address] [address]
--- OUTSIDE RECORDS SUMMARY | 2023-06-24 08:12 | XMS_ITS | Continuity of Care Document ---
Author Name Unknown Organization [facility] Address [address] [place] [address]- Care Team Providers Care Corporate Buyer Name Role Phone Rosaura BRAND, Essie Dillon Primary Care Physician [phone] [place] [facility] [place] 02/01/22 - 03/03/22 [facility] [address] [place] [id number] Attending Physician: Leonard Ramírez Admitting Physician: Admtr, [...] Refills, Maintenance, 10/08/19 16:09:00 EST, EC Tablet, [facility], 180.34, cm, 10/08/19 12:43:00 EST, Height, 95.45, kg, 10/06/19 13:17:00 EST,Dry Weight Start Date: 10/08/19 Status: Ordered atorvastatin 80 mg oral tablet 1 tablet = 80 mg, By Mouth, Daily, # 30 tablet, 5 Refills, Maintenance, 11/12/21 5:10:00 EST, Tablet, [facility] #[id number], Partial fill upon patient request if the [...] 0 Refills, Maintenance, 11/06/21 11:08:00 EST, Tablet, [facility] #[id number], Partial fill upon patient request if the [...] mL, 11 Refills, Maintenance, 11/15/21 15:10:00 EST, [facility] #[id number], 165,... Start Date: 11/15/21 Status: Ordered Levemir FlexTouch 100 units/mL subcutaneous solution = 42 units, Subcutaneous Injection, Daily at bedtime, use nightly for type 1 DM, # 15 mL, 11 Refills, Maintenance, 11/15/21 15:09:00 EST, [facility] #[id number], 165, cm, 11/06/21 2:03:00 EST, Height, 100, [...] 0 Refills, Maintenance, 10/08/19 16:11:00 EST, Tablet, [facility], 180.34, cm, 10/08/19 12:43:00 EST, Height, [...]
--- OUTSIDE RECORDS SUMMARY | 2023-06-24 08:12 | XMS_ITS | Continuity of Care Document ---
Author Name Unknown Organization [facility] ter Address [address] [place] [address]- Care Team Providers Care Business Services Specialist Sales Name Role Phone Rosaura BRAND, Essie D Primary Care Physician [phone] [facility] [place] Date(s): 02/27/22 - 02/27/[address] [address] Discharge Disposition: A-D/C Home Attending Physician: Cesar Chakraborty MD Admitting Physician: Cesar Chakraborty MD Referring Physician: Cesar Chakraborty MD Allergies, Adverse Reactions, Alerts Substance Reaction [...] Refills, Maintenance, 10/08/19 16:09:00 EST, EC Tablet, [facility], 180.34, cm, 10/08/19 12:43:00 EST, Height, 95.45, kg, 10/06/19 13:17:00 EST,Dry Weight Start Date: 10/08/19 Status: Ordered atorvastatin 80 mg oral tablet 1 tablet = 80 mg, By Mouth, Daily, # 30 tablet, 5 Refills, Maintenance, 11/12/21 5:10:00 EST, Tablet, [facility] #[id number], Partial fill upon patient request if the [...] 0 Refills, Maintenance, 11/06/21 11:08:00 EST, Tablet, [facility] #[id number], Partial fill upon patient request if the [...] mL, 11 Refills, Maintenance, 11/15/21 15:10:00 EST, [facility] #[id number], 165,... Start Date: 11/15/21 Status: Ordered Levemir FlexTouch 100 units/mL subcutaneous solution = 42 units, Subcutaneous Injection, Daily at bedtime, use nightly for type 1 DM, # 15 mL, 11 Refills, Maintenance, 11/15/21 15:09:00 EST, [facility] #[id number], 165, cm, 11/06/21 2:03:00 EST, Height, 100, [...] 0 Refills, Maintenance, 10/08/19 16:11:00 EST, Tablet, [facility], 180.34, cm, 10/08/19 12:43:00 EST, [...] to oldest [Reference Range]: 1 2 3 4 Height 180.3 cm (02/27/22 9:54 AM) 180.3 cm (02/26/22 4:23 PM) Weight 101 kg (02/27/22 9:54 AM) 105 kg (02/26/22 4:23 PM) Oxygen Saturation [94-100 %] 100 % (02/27/22 2:00 PM) 100 % (02/27/22 2:00 PM) 100 % (02/27/22 1:30 PM) 100 % (02/27/22 1:30 PM) Pulse Rate [55-90 bpm] 76 bpm (02/27/22 9:54 AM) Body Mass Index [18.5-24.99] 31.07 *>HHI* (02/27/22 9:54 AM) 32.3 *>HHI* (02/26/22 4:23 PM) Blood Pressure [90-138/55-84 mm Hg] 102/62mm Hg (02/27/22 1:30 PM) 104/61mm Hg (02/27/22 1:15 PM) Systolic Blood Pressure [90-138 mm Hg] 104 mm Hg (02/27/22 1:00 PM) 104 mm Hg (02/27/22 1:00 PM) Diastolic Blood Pressure [55-84 mm Hg] 61 mm Hg (02/27/22 1:00 PM) 61 mm Hg (02/27/22 1:00 PM) Respiratory Rate [16-30 br/min] 17 br/min (02/27/22 1:30 PM) 14 br/min *L* (02/27/22 1:15 PM) 21 br/min (02/27/22 1:00 PM) 21 br/min (02/27/22 1:00 PM) Temperature [96.8-100.4 DegF] 97.3 DegF (02/27/22 12:52 PM) 97.7 DegF (02/27/22 9:54 AM) Mode of Delivery (Oxygen) Room air (02/27/22 1:15 PM) Simple face mask (02/27/22 12:52 PM) Room air (02/27/22 9:54 AM) Blood pressure sites Arm, right (02/27/22 12:52 PM) Temperature Route Temporal (02/27/22 9:54 AM) Dry Weight 105 kg (02/26/22 4:23 PM) Weight Obtained Via Patient/family stated (02/26/22 4:23 PM) Dry Weight Obtained Via Patient/family stated (02/26/22 4:23 PM) Social History Social History Type Response Tobacco Type: Cigarettes. To bacco use times per day: 10 ciggerettes per day. 20 Number of years:. Total pack years: 10. Sex
--- OUTSIDE RECORDS SUMMARY | 2023-06-24 08:12 | XMS_ITS | Continuity of Care Document ---
Author Name Unknown Organization [facility] Address [address] [place] [address]- Care Team Providers Care Barrel Reamer Name Role Phone Arlen BRAND, Tuyet Cullen Primary Care Physician [place] [facility] [place](s): 04/04/23 - 05/04/23 [facility] [address] [place] [id number] Allergies, Adverse Reactions, [...] Refills, Maintenance, 10/08/19 16:09:00 EST, EC Tablet, [facility], 180.34, cm, 10/08/19 12:43:00 EST, Height, 95.45, kg, 10/06/19 13:17:00 EST,Dry Weight Start Date: 10/08/19 Status: Ordered atorvastatin 80 mg oral tablet 1 tablet = 80 mg, By Mouth, Daily, # 30 tablet, 5 Refills, Maintenance, 11/12/21 5:10:00 EST, Tablet, [facility] #[id number], Partial fill upon patient request if the [...] 0 Refills, Maintenance, 11/06/21 11:08:00 EST, Tablet, [id number], Partial fill upon patient request if the [...] mL, 0 Refills, Maintenance, 01/31/23 10:13:00 EDT, [facility] #[id number], 180.3, cm, 02/27/22 9:54:00 EDT, Height, 105, kg, 02/26/22 16:23... Start Date: 01/31/23 Status: Ordered Levemir FlexTouch 100 units/mL subcutaneous solution = 42 units, Subcutaneous Injection, Daily at bedtime, use nightly for type 1 DM, # 15 mL, 0 Refills, Maintenance, 11/19/22 14:26:00 EST, [facility] #[id number], 180.3, cm, 02/27/22 9:54:00 EDT, Height, 105, [...] 0 Refills, Maintenance, 10/08/19 16:11:00 EST, Tablet, [facility], 180.34, cm, 10/08/19 12:43:00 [...] Team Personnel Name: Sunshine Avery RN Position: [facility] RN Member Role: Primary Care Nurse Name: Anne Shook NP Position: [facility] PCO Associate Professional Member Role: Primary Care Nurse Address: Address: [address] [place] [address]- Name: Tuyet Mckinley MD Position: [facility] Physician - Primary Care Member Role: PCP Address: Address: [address] [place] [address], [address] [place] [address]- Name: Torri Lau RN Position: S RN Member Role: Primary Care Nurse Name: Angelia Ordonez RN Position: S RN Member Role: Primary Care Nurse Care Team Related Persons Name: DANIE RODRIGUEZ Address: [address] [address]
--- OUTSIDE RECORDS SUMMARY | 2023-06-24 08:12 | XMS_ITS | Continuity of Care Document ---
Author Name Unknown Organization [facility] Address [address] [place] [address]- Care Team Providers Care Medical Staff Assistant Name Role Phone Tuyet Mckinley MD Primary Care Physician [phone] Encounter [facility] [place] Date(s): 03/05/23 - 05/04/23 [facility] [address] [place] [id number] Attending Physician: Anna Durham MD Admitting Physician: [...] Refills, Maintenance, 10/08/19 16:09:00 EST, EC Tablet, [facility], 180.34, cm, 10/08/19 12:43:00 EST, Height, 95.45, kg, 10/06/19 13:17:00 EST,Dry Weight Start Date: 10/08/19 Status: Ordered atorvastatin 80 mg oral tablet 1 tablet = 80 mg, By Mouth, Daily, # 30 tablet, 5 Refills, Maintenance, 11/12/21 5:10:00 EST, Tablet, [facility] #[id number], Partial fill upon patient request if the [...] 0 Refills, Maintenance, 11/06/21 11:08:00 EST, Tablet, [facility] #[id number], Partial fill upon patient request if the [...] mL, 0 Refills, Maintenance, 01/31/23 10:13:00 EDT, [facility] #[id number], 180.3, cm, 02/27/22 9:54:00 EDT, Height, 105, kg, 02/26/22 16:23... Start Date: 01/31/23 Status: Ordered Levemir FlexTouch 100 units/mL subcutaneous solution = 42 units, Subcutaneous Injection, Daily at bedtime, use nightly for type 1 DM, # 15 mL, 0 Refills, Maintenance, 11/19/22 14:26:00 EST, [facility] #[id number], 180.3, cm, 02/27/22 9:54:00 EDT, Height, 105, [...] 0 Refills, Maintenance, 10/08/19 16:11:00 EST, Tablet, [facility], 180.34, cm, 10/08/19 12:43:00 EST, [...] Team Personnel Name: Sunshine Avery RN Position: [facility] RN Member Role: Primary Care Nurse Name: Anne Shook NP Position: [facility] PCO Associate Professional Member Role: Primary Care Nurse Address: Address: [address] [place] [address]- Name: Tuyet Mckinley MD Position: [facility] Physician - Primary Care Member Role: PCP Address: Address: [address] [place] [address], [address] Primary Care and Weight Management [place], [place] [address] Name: Torri Lau RN Position: [facility] RN Member Role: Primary Care Nurse Name: Angelia Ordonez RN Position: [facility] RN Member Role: Primary Care Nurse Care Team Related Persons Name: DANIE RODRIGUEZ Address: [address] [address]
--- OUTSIDE RECORDS SUMMARY | 2023-06-24 08:12 | XMS_ITS | Continuity of Care Document ---
Author Name Unknown Organization [facility] Address [address] [place] [address]- Care Team Providers Care Substation Operator Helper Name Role Phone Tuyet Mckinley MD Primary Care Physician [phone] [place] [facility] [place]/05[place]23 - 04/25/23 [facility] [address] [place] [address] Attending Physician: Anna Durham [...] Refills, Maintenance, 10/08/19 16:09:00 EST, EC Tablet, [facility], 180.34, cm, 10/08/19 12:43:00 EST, Height, 95.45, kg, 10/06/19 13:17:00 EST,Dry Weight Start Date: 10/08/19 Status: Ordered atorvastatin 80 mg oral tablet 1 tablet = 80 mg, By Mouth, Daily, # 30 tablet, 5 Refills, Maintenance, 11/12/21 5:10:00 EST, Tablet, [facility] #[id number], Partial fill upon patient request if the [...] 0 Refills, Maintenance, 11/06/21 11:08:00 EST, Tablet, [facility] #[id number], Partial fill upon patient request if the [...] mL, 0 Refills, Maintenance, 01/31/23 10:13:00 EDT, [facility] #[id number], 180.3, cm, 02/27/22 9:54:00 EDT, Height, 105, kg, 02/26/22 16:23... Start Date: 01/31/23 Status: Ordered Levemir FlexTouch 100 units/mL subcutaneous solution = 42 units, Subcutaneous Injection, Daily at bedtime, use nightly for type 1 DM, # 15 mL, 0 Refills, Maintenance, 11/19/22 14:26:00 EST, [facility] #[id number], 180.3, cm, 02/27/22 9:54:00 EDT, Height, 105, [...] 0 Refills, Maintenance, 10/08/19 16:11:00 EST, Tablet, [facility], 180.34, cm, 10/08/19 12:43:00 [...] Team Personnel Name: Sunshine Avery RN Position: [facility] RN Member Role: Primary Care Nurse Name: Anne Shook NP Position: [facility] PCO Associate Professional Member Role: Primary Care Nurse Address: Address: [address] [place] [address]- Name: Tuyet Mckinley MD Position: [facility] Physician - Primary Care Member Role: PCP Address: Address: [address] [place] [address], [address] Primary Care and Weight Management [place], [place] [address] Name: Torri Lau RN Position: [facility] RN Member Role: Primary Care Nurse Name: Angelia Ordonez RN Position: [facility] RN Member Role: Primary Care Nurse Care Team Related Persons Name: DANIE RODRIGUEZ Address: [address] [address]
--- OUTSIDE RECORDS SUMMARY | 2023-06-24 08:12 | XMS_ITS | Continuity of Care Document ---
Author Name Unknown Organization [facility] Address [address] [place] [address]- Care Team Providers Care Pens And Pencils Repairer Name Role Phone Tuyet Mckinley MD Primary Care Physician [phone] [place] [facility] [place] 05/21/20 [facility] [address] [place] [address] [facility] Attending Physician: Lalita Recinos MD Admitting Physician: Lalita Recinos MD Referring Physician: Tuyet Mckinley MD Allergies, Adverse Reactions, Alerts Substance Reaction Severity Status morphine hyperactive Active Medications aspirin 81 mg oral delayed release tablet = 81 mg, By Mouth, Daily, # 30 tablet, 0 Refills, Maintenance, 10/08/19 16:09:00 EST, EC Tablet, [facility], 180.34, cm, 10/08/19 12:43:00 EST, Height, 95.45, kg, 10/06/19 13:17:00 EST,Dry Weight Start Date: 10/08/19 Status: Ordered atorvastatin 80 mg oral tablet 1 tablet = 80 mg, By Mouth, Daily at bedtime, # 30 tablet, 0 Refills, Maintenance, 10/08/19 16:10:00 EST, Tablet, [facility], 180.34, cm, 10/08/19 [...] mL, 8 Refills, Maintenance, 01/25/20 11:25:00 EDT, [facility] #[id number], 180.34, cm, 10/28/19 10:48:00 EST, Height, 95.45, [...] mL, 11 Refills, Maintenance, 01/19/20 11:19:00 EDT, [facility] #[id number], 180.34, cm, 10/28/19 10:48:00 EST, Height, 95.45, [...] 1 Refills, Maintenance, 10/08/19 16:11:00 EST, Patch, [facility], 1 patch Topically Daily, 180.34, cm, 10/08/19 12:43:00 EST, Height, 95.45, kg, 10/06/19 13:17:00 EST, Dry Weight Start Date: 10/08/19 Stop Date: 11/08/19 Status: Ordered NovoLOG FlexPen 100 units/mL subcutaneous solution See Instructions, Subcutaneous Injection, Use as directed for Diabetes mellitus type 1. (Max Dose =50 units/day), # 30 mL, 11 Refills, Maintenance, 10/09/19 9:57:00 EST, [facility] #[id number],180.34, cm, 10/09/19 9:33:00 EST, Height, 95.45, kg... [...] 0 Refills, Maintenance, 10/08/19 16:11:00 EST, Tablet, [facility], 180.34, cm, 10/08/19 12:43:00 EST, Height, 95.45, kg, 10/06/1913:17:00 EST, Dry Weight Start Date: 10/08/19 Status: Ordered Toprol XL 50 mg oral tablet, extended release 50 mg, 1, tablet, By Mouth, Daily, # 30 tablet, Refills 0, Tot. Refills 0, Maintenance, 10/08/19 16:10:00 EST, Route to Pharmacy Electronically, [facility], 180.34, cm, 10/08/19 12:43:00 EST, Height, [...] Number of years:. Total pack years: 10. Sex"
--- OUTSIDE RECORDS SUMMARY | 2023-06-24 08:12 | XMS_ITS | Continuity of Care Document ---
Author Name Unknown Organization [facility] ter Address [address] [place] [address]- Care Team Providers Care City Council Member Name Role Phone Arlen BRAND, Tuyet Cullen Primary Care Physician [place] [facility] [id number] Date(s): 10/04/20 - 11/03/[address] [address] Attending Physician: Admtr, Leonard Admitting Physician: Admtr, Ar8 Referring Physician: Admtr, Ar8 Allergies, Adverse Reactions, Alerts Substance Reaction Severity Status morphine hyperactive Active Medications aspirin 81 mg oral delayed release tablet = 81 mg, By Mouth, Daily, # 30 tablet, 0 Refills, Maintenance, 10/08/19 16:09:00 EST, EC Tablet, [facility], 180.34, cm, 10/08/19 12:43:00 EST, Height, 95.45, kg, 10/06/19 13:17:00 EST,Dry Weight Start Date: 10/08/19 Status: Ordered atorvastatin 80 mg oral tablet 1 tablet = 80 mg, By Mouth, Daily at bedtime, # 30 tablet, 0 Refills, Maintenance, 10/08/19 16:10:00 EST, Tablet, [facility], 180.34, cm, 10/08/19 12:43:00 [...] mL, 8 Refills, Maintenance, 01/25/20 11:25:00 EDT, [facility] #[id number], 180.34, cm, 10/28/19 10:48:00 EST, Height, 95.45, [...] mL, 11 Refills, Maintenance, 01/19/20 11:19:00 EDT, [facility] #[id number], 180.34, cm, 10/28/19 10:48:00 EST, Height, 95.45, [...] 1 Refills, Maintenance, 10/08/19 16:11:00 EST, Patch, [facility], 1 patch Topically Daily, 180.34, cm, 10/08/19 12:43:00 EST, Height, 95.45, kg, 10/06/19 13:17:00 EST, Dry Weight Start Date: 10/08/19 Stop Date: 11/08/19 Status: Ordered NovoLOG FlexPen 100 units/mL subcutaneous solution See Instructions, Subcutaneous Injection, Use as directed for Diabetes mellitus type 1. (Max Dose =50 units/day), # 30 mL, 11 Refills, Maintenance, 10/09/19 9:57:00 EST, [facility] #[id number],180.34, cm, 10/09/19 9:33:00 EST, Height, 95.45, kg... [...] 0 Refills, Maintenance, 10/08/19 16:11:00 EST, Tablet, [facility], 180.34, cm, 10/08/19 12:43:00 EST, Height, 95.45, kg, 10/06/1913:17:00 EST, Dry Weight Start Date: 10/08/19 Status: Ordered Toprol XL 50 mg oral tablet, extended release 50 mg, 1, tablet, By Mouth, Daily, # 30 tablet, Refills 0, Tot. Refills 0, Maintenance, 10/08/19 16:10:00 EST, Route to Pharmacy Electronically, [facility], 180.34, cm, 10/08/19 12:43:00 [...]
--- OUTSIDE RECORDS SUMMARY | 2023-06-24 08:12 | XMS_ITS | Continuity of Care Document ---
Author Name Unknown Organization [facility] Address [address] [place] [address]- Care Team Providers Care Buckle Gluer Name Role Phone Rosaura BRAND, Essie Dillon Primary Care Physician [phone] [place] [facility] [place]s): 07/27/22 - 08/26/22 [facility] [address] [place] [id number] Allergies, Adverse Reactions, Alerts [...] Refills, Maintenance, 10/08/19 16:09:00 EST, EC Tablet, [facility], 180.34, cm, 10/08/19 12:43:00 EST, Height, 95.45, kg, 10/06/19 13:17:00 EST,Dry Weight Start Date: 10/08/19 Status: Ordered atorvastatin 80 mg oral tablet 1 tablet = 80 mg, By Mouth, Daily, # 30 tablet, 5 Refills, Maintenance, 11/12/21 5:10:00 EST, Tablet, [facility] #[id number], Partial fill upon patient request if the [...] 0 Refills, Maintenance, 11/06/21 11:08:00 EST, Tablet, [facility] #[id number], Partial fill upon patient request if the [...] mL, 11 Refills, Maintenance, 07/27/22 15:50:00 EDT, [facility] #[id number], 180.3, cm, 02/27/22 9:54:00 EDT, Height,... Start Date: 07/27/22 Status: Ordered Levemir FlexTouch 100 units/mL subcutaneous solution = 42 units, Subcutaneous Injection, Daily at bedtime, use nightly for type 1 DM, # 15 mL, 11 Refills, Maintenance, 05/28/22 14:11:00 EDT, [facility] #[id number], 180.3, cm, 02/27/22 9:54:00 EDT,Height, 105, kg, [...] 0 Refills, Maintenance, 10/08/19 16:11:00 EST, Tablet, [facility], 180.34, cm, 10/08/19 12:43:00 EST, [...] Team Personnel Name: Essie Kaplan MD Position: [facility] Physician (General Medicine) Member Role: PCP Address: Address: [address] [place] [address]- Name: Jermain Benavidez RN Position: [facility] RN Supv Member Role: Primary Care Nurse Name: Sunshine Avery RN Position: S RN Member Role: Primary Care Nurse Name: Anne Shook NP Position: [facility] Associate Professional Member Role: Primary Care Nurse Address: Address: [address] [place] [address]- Name: Betsy Roque Position: S RN Member Role: Primary Care Nurse Name: Torri Lau RN Position: [facility] RN Member Role: Primary Care Nurse Name: Angelia Ordonez RN Position: [facility] RN Member Role: Primary Care Nurse Care Team Related Persons Name: DANIE RODRIGUEZ Address: [address] [address]
--- OUTSIDE RECORDS SUMMARY | 2023-06-24 08:12 | XMS_ITS | Continuity of Care Document ---
Author Name Unknown Organization [facility] Address [address] [place] [address]- Care Team Providers Care Pharmacist Assistant Name Role Phone Arlen BRAND, Tuyet Cullen Primary Care Physician [place] [facility] [place] 03/19/23 - 04/18/23 [facility] [address] [place] [address] Allergies, Adverse Reactions, Alerts Substance [...] Refills, Maintenance, 10/08/19 16:09:00 EST, EC Tablet, [facility], 180.34, cm, 10/08/19 12:43:00 EST, Height, 95.45, kg, 10/06/19 13:17:00 EST,Dry Weight Start Date: 10/08/19 Status: Ordered atorvastatin 80 mg oral tablet 1 tablet = 80 mg, By Mouth, Daily, # 30 tablet, 5 Refills, Maintenance, 11/12/21 5:10:00 EST, Tablet, [facility] #[id number], Partial fill upon patient request if the [...] 0 Refills, Maintenance, 11/06/21 11:08:00 EST, Tablet, [id number], Partial fill upon patient request if the [...] mL, 0 Refills, Maintenance, 01/31/23 10:13:00 EDT, [facility] #[id number], 180.3, cm, 02/27/22 9:54:00 EDT, Height, 105, kg, 02/26/22 16:23... Start Date: 01/31/23 Status: Ordered Levemir FlexTouch 100 units/mL subcutaneous solution = 42 units, Subcutaneous Injection, Daily at bedtime, use nightly for type 1 DM, # 15 mL, 0 Refills, Maintenance, 11/19/22 14:26:00 EST, [facility] #[id number], 180.3, cm, 02/27/22 9:54:00 EDT, Height, 105, [...] 0 Refills, Maintenance, 10/08/19 16:11:00 EST, Tablet, [facility], 180.34, cm, 10/08/19 [...] Team Personnel Name: Sunshine Avery RN Position: [facility] RN Member Role: Primary Care Nurse Name: Anne Shook NP Position: [facility] PCO Associate Professional Member Role: Primary Care Nurse Address: Address: [address] [place] [address]- Name: Tuyet Mckinley MD Position: [facility] Physician - Primary Care Member Role: PCP Address: Address: [address] [place] [address], [address] Primary [place] [address]- Name: Torri Lau RN Position: [facility] RN Member Role: Primary Care Nurse Name: Angelia Ordonez RN Position: S RN Member Role: Primary Care Nurse Care Team Related Persons Name: DANIE RODRIGUEZ Address: home [address] [place] [address]
--- OUTSIDE RECORDS SUMMARY | 2023-06-24 08:12 | XMS_ITS | Continuity of Care Document ---
Author Name Unknown Organization [facility] Address [address] [place] [id number]- Care Team Providers Care Chief Ultrasound Technologist Name Role Phone Rosaura BRAND, Essie Santana Primary Care Physician [phone] [place] [facility] [place]/29/22 - 01/29/[address] [id number] Discharge Disposition: A-D/C Home Attending [...] Refills, Maintenance, 10/08/19 16:09:00 EST, EC Tablet, [facility], 180.34, cm, 10/08/19 12:43:00 EST, Height, 95.45, kg, 10/06/19 13:17:00 EST,Dry Weight Start Date: 10/08/19 Status: Ordered atorvastatin 80 mg oral tablet 1 tablet = 80 mg, By Mouth, Daily, # 30 tablet, 5 Refills, Maintenance, 11/12/21 5:10:00 EST, Tablet, [facility] #[id number], Partial fill upon patient request if the [...] 0 Refills, Maintenance, 11/06/21 11:08:00 EST, Tablet, [facility] #[id number], Partial fill upon patient request if the [...] mL, 11 Refills, Maintenance, 11/15/21 15:10:00 EST, [facility] #[id number], 165,... Start Date: 11/15/21 Status: Ordered Levemir FlexTouch 100 units/mL subcutaneous solution = 42 units, Subcutaneous Injection, Daily at bedtime, use nightly for type 1 DM, # 15 mL, 11 Refills, Maintenance, 11/15/21 15:09:00 EST, [facility] #[id number], 165, cm, 11/06/21 2:03:00 EST, Height, 100, [...] 0 Refills, Maintenance, 10/08/19 16:11:00 EST, Tablet, [facility], 180.34, cm, 10/08/19 12:43:00 EST, [...] Range]: 1 2 3 Height 180.34 cm (01/29/22 6:48 AM) 180.34 cm (01/25/22 10:04 AM) Weight 106.9 kg (01/29/22 6:48 AM) 105 kg (01/25/22 10:04 AM) Oxygen Saturation [94-100 %] 94 % (01/29/22 8:34 AM) 73 % *L* (01/29/22 7:42 AM) 100 % (01/29/22 7:39 AM) Pulse Rate [55-90 bpm] 71 bpm (01/29/22 6:48 AM) Body Mass Index [18.5-24.99] 32.87 *>HHI* (01/29/22 6:48 AM) 32.29 *>HHI* (01/25/22 10:04 AM) Blood Pressure [90-138/55-84 mm Hg] 116/68mm Hg (01/29/22 8:34 AM) 124/70mm Hg (01/29/22 7:42 AM) 124/70mm Hg (01/29/22 7:39 AM) Respiratory Rate [16-30 br/min] 25 br/min (01/29/22 8:34 AM) 12 br/min *L* (01/29/22 7:42 AM) 10 br/min *L* (01/29/22 7:39 AM) Temperature [96.8-100.4 DegF] 97.1 DegF (01/29/22 8:34 AM) 97.8 DegF (01/29/22 6:48 AM) Mode of Delivery (Oxygen) Room air (01/29/22 9:15 AM) Room air (01/29/22 8:34 AM) Room air (01/29/22 6:48 AM) Blood pressure sites Arm, left (01/29/22 8:34 AM) Temperature Route Temporal (01/29/22 8:34 AM) Temporal (01/29/22 6:48 AM) Dry Weight 105 kg (01/25/22 10:04 AM) Social History Social History Type Response Tobacco Type: Cigarettes. To bacco use times per day: 10 ciggerettes per day. 20 Number of years:. Total pack years: 10. Sex
--- OUTSIDE RECORDS SUMMARY | 2023-06-24 08:12 | XMS_ITS | Continuity of Care Document ---
Author Name Unknown Organization [facility] ter Address [address] [place] [address]- Care Team Providers Care Supervisor Hanging And Trimming Name Role Phone Arlen BRAND, Tuyet Cullen Primary Care Physician [place] [facility] [place](s): 11/29/21 - 01/04/[address] [address] Attending Physician: Armin Amin MD Admitting Physician: Armin Amin MD Referring Physician: Armin Amin MD Allergies, Adverse Reactions, Alerts Substance Reaction [...] 5 Refills, Maintenance, 11/12/21 5:10:00 EST, Tablet, [facility] #[id number], Partial fill upon patient request if the [...] 0 Refills, Maintenance, 11/06/21 11:08:00 EST, Tablet, [facility] #[id number], Partial fill upon patient request if the [...] mL, 11 Refills, Maintenance, 11/15/21 15:10:00 EST, [facility] #[id number], 165,... Start Date: 11/15/21 Status: Ordered Levemir FlexTouch 100 units/mL subcutaneous solution = 42 units, Subcutaneous Injection, Daily at bedtime, use nightly for type 1 DM, # 15 mL, 11 Refills, Maintenance, 11/15/21 15:09:00 EST, [facility] #[id number], 165, cm, 11/06/21 2:03:00 EST, Height, 100, [...] 11/06/21 11:09:00 EST, Route to Pharmacy Electronically, [facility] #[id number], Partial fill upon patientrequest if the prescription [...]
--- OUTSIDE RECORDS SUMMARY | 2023-06-24 08:12 | XMS_ITS | Continuity of Care Document ---
Author Name Unknown Organization [facility] Address [address] [place] [address]- Care Team Providers Care Sanitary Napkin Machine Tender Name Role Phone Tuyet Mckinley MD Primary Care Physician En[place] [facility] [place] Date(s): 01/19/20 - 01/26/20 [facility] [address] [place] [address] [facility] Attending Physician: Lalita Recinos MD Admitting Physician: [...] 0 Refills, Maintenance, 10/08/19 16:10:00 EST, Tablet, [facility], 180.34, cm, [...] mL, 8 Refills, Maintenance, 01/25/20 11:25:00 EDT, [facility] #[id number], 180.34, cm, 10/28/19 10:48:00 EST, Height, 95.45, [...] mL, 11 Refills, Maintenance, 01/19/20 11:19:00 EDT, [facility] #[id number], 180.34, cm, 10/28/19 10:48:00 EST, Height, 95.45, [...] 1 Refills, Maintenance, 10/08/19 16:11:00 EST, Patch, [facility], 1 patch Topically Daily, 180.34, cm, 10/08/19 12:43:00 EST, Height, 95.45, kg, 10/06/19 13:17:00 EST, Dry Weight Start Date: 10/08/19 Stop Date: 11/08/19 Status: Ordered NovoLOG FlexPen 100 units/mL subcutaneous solution See Instructions, Subcutaneous Injection, Use as directed for Diabetes mellitus type 1. (Max Dose =50 units/day), # 30 mL, 11 Refills, Maintenance, 10/09/19 9:57:00 EST, [facility] #[id number],180.34, cm, 10/09/19 9:33:00 EST, Height, 95.45, kg... [...] 0 Refills, Maintenance, 10/08/19 16:11:00 EST, Tablet, [facility], 180.34, cm, 10/08/19 12:43:00 EST, Height, 95.45, kg, 10/06/1913:17:00 EST, Dry Weight Start Date: 10/08/19 Status: Ordered Toprol XL 50 mg oral tablet, extended release 50 mg, 1, tablet, By Mouth, Daily, # 30 tablet, Refills 0, Tot. Refills 0, Maintenance, 10/08/19 16:10:00 EST, Route to Pharmacy Electronically, [facility], 180.34, cm, 10/08/19 12:43:00 EST, [...]
--- OUTSIDE RECORDS SUMMARY | 2023-06-24 08:12 | XMS_ITS | Continuity of Care Document ---
Author Name Unknown Organization [facility] Address [address] [place] [id number]- Care Team Providers Care Parts Cleaner Name Role Phone Arlen BRAND, Tuyet Cullen Primary Care Physician Encounter [facility] Date(s): 06/07/21 - 10/05/21 [facility] [address] [place] [id number] Attending Physician: Lalita Recinos MD Admitting Physician: Lalita Recinos MD Allergies, Adverse Reactions, Alerts Substance Reaction [...] 0 Refills, Maintenance, 10/08/19 16:10:00 EST, Tablet, [facility], [...] mL, 11 Refills, Maintenance, 02/03/21 13:43:00 EDT, [facility] #[id number], 180.34, cm, 10/28/19 10:48:00 EST, Height, 95.45, kg,... Start Date: 02/03/21 Status: Ordered Levemir FlexTouch 100 units/mL subcutaneous solution See Instructions, Take 25 units twice daily. E10.9, # 30 mL, 11 Refills, Maintenance, 02/06/21 21:58:00 EDT, [facility] #[id number], 180.34, cm, 10/28/19 10:48:00 EST, Height, 95.45, [...] Refills, Maintenance, 10/08/19 16:11:00 EST, Patch, [facility], 1 patch Topically Daily, 180.34, [...] 10/08/19 16:10:00 EST, Route to Pharmacy Electronically, [facility], 180.34, cm, [...]
--- NOTE | 2023-06-24 09:50 | HO.ANESPROP2 ---
HPI - Anesthesia Eval Consult details Narrative: 37 M for right trabeculectomy CAD stopped asprin as per green end department supervisor [facility] Active Problems Active Problems: All Active Problems (Updated 06/20/23 @ 09:49 by Marce Aiken RN) Nausea and vomiting (Acute) Seizure (Acute) Past Medical History Medical History (Updated 06/20/23 @ 09:49 by Marce Aiken RN) Latent tuberculosis PLMD (periodic limb movement disorder) History of below-knee amputation of left lower extremity Asthma History of ST elevation myocardial infarction (STEMI) CHF (congestive heart failure) CAD (coronary artery disease) Microalbuminuria HLD (hyperlipidemia) Albuminuria Cardiomyopathy HTN (hypertension) Arthralgia Hypogonadism in male Anxiety GERD (gastroesophageal reflux disease) Diabetic retinopathy MINOO (obstructive sleep apnea) DM (diabetes mellitus), type 1 with renal complications Diabetes type I Family History Family history of problems with anesthesia: No Surgical History Surgical History (Updated 06/20/23 @ 10:20 by Marce Aiken RN) Hx of detached retina repair Hx of hand surgery Hx of BKA History of Problems with Anesthesia: No Social History Social History Are you a primary critical care registered nurse to a significant other at home: No Do you presently have visiting nurse or other home services: Yes ( is BUSINESS OFFICE COORDINATOR) Alcohol intake: current Alcohol intake frequency: holidays/special occasions only Patient Tobacco Use Status: Never used Tobacco Use of substances other than those prescribed or required for medical reasons: Yes Substance Use Frequency: Daily Are you DNR?: No Advance Directives: No Advance Directives Information Provided: Yes Advance Directives on File: No Recently lost weight without trying: No Nutrition Risks: No Nutritional Risk Poor oral hygiene: No Meds Allergies Allergy/AdvReac Type Severity Reaction Status Date / Time aspirin Allergy Intermediate Gastrointestinal Verified 06/20/23 10:24 Upset morphine Allergy Intermediate Seizure Verified 06/20/23 10:24 nicotine Allergy Intermediate Rash Verified 06/20/23 10:24 Active Medications: Current Medications Povidone Iodine (Povidone Iodine 5 % Ophth Soln 30 Ml Bottle) 1 appl EYE-RIGHT PREOP PRN PRN Reason: Pre-Op Surgical Implant Prophy Home Medications Medication Instructions Recorded Confirmed Last Taken Type aspirin 81 mg tablet,delayed 81 mg PO DAILY 11/19/22 06/20/23 Unknown History release atorvastatin 80 mg tablet 80 mg PO DAILY 11/19/22 06/20/23 Unknown History carvedilol 6.25 mg tablet 12.5 mg PO BID 11/19/22 06/20/23 06/24/23 History escitalopram oxalate 10 mg tablet 10 mg PO DAILY 11/19/22 06/20/23 06/24/23 History sacubitril 49 mg-valsartan 51 mg 1 tab PO BID 11/19/22 06/20/23 Unknown History tablet (Entresto) diphenhydramine HCl 25 mg tablet 25 mg PO Q8H PRN itch 05/24/23 06/20/23 Unknown History (Banophen) dorzolamide 22.3 mg-timolol 6.8 ophthalmic (eye) BID 05/24/23 05/24/23 Unknown History mg/mL eye drops evolocumab 140 mg/mL subcutaneous 140 mg subcut Q2W 05/24/23 06/20/23 Unknown History pen injector (Repatha SureDavidick) insulin lispro 100 unit/mL subcut 05/24/23 05/24/23 Unknown History subcutaneous pen (Humalog KwikPen (U-100) Insulin) latanoprost 0.005 % eye drops 1 drp ophthalmic-Right BEDTIME 05/24/23 06/20/23 Unknown History ticagrelor 60 mg tablet (Brilinta) 60 mg PO BID 05/24/23 06/20/23 Unknown History torsemide 20 mg tablet 20 mg PO DAILY 05/24/23 06/20/23 Unknown History albuterol sulfate 90 mcg/actuation 2 puff inhalation Q4-6H PRN 06/20/23 06/20/23 06/24/23 History aerosol inhaler Shortness Of Breath Or Wheezing brimonidine 0.1 % eye drops 1 drp ophthalmic (eye) Q8H 06/20/23 06/20/23 Unknown History (Alphagan P) doxycycline monohydrate 100 mg 100 mg PO BID 06/20/23 06/20/23 Unknown History tablet fluticasone 250 mcg-salmeterol 50 1 inh inhalation BID 06/20/23 06/20/23 Unknown History mcg/dose blistr powdr for inhalation (Advair Diskus) hydroxyzine HCl 25 mg tablet 25 mg PO BID PRN Itching 06/20/23 06/20/23 Unknown History insulin detemir U-100 100 unit/mL 52 unit subcut BEDTIME 06/20/23 06/20/23 Unknown History (3 mL) subcutaneous pen (Levemir FlexPen) levetiracetam 500 mg 500 mg PO BID 06/20/23 06/20/23 06/24/23 History tablet,extended release 24 hr (Keppra XR) nitroglycerin 0.4 mg sublingual 0.4 mg sublingual Q5M PRN Chest 06/20/23 06/20/23 Unknown History tablet (Nitrostat) Pain phenytoin sodium extended 100 mg 100 mg PO QID 06/20/23 06/20/23 06/24/23 History capsule (Dilantin Extended) Exam Exam Date and Time: June 24, 2023 0950 Height,Weight and Vital Signs: Height 5 ft 11 in Weight 104.95 kg Airway Mallampati Class: IV Loose/Missing/Broken Teeth: Yes Assessment and Plan Assessment Anesthesia Assessment: Anesthesia Plan Discussed and Chart Reviewed Final Anesthetic Review Family History of Problems with Anesthesia: No History of Problems with Anesthesia: No NPO: Yes ASA Class: IV Final Preanesthetic Review: Meds/Allgs Chart Reviewed, Consent Obtained/Reviewed and Anes Risks/Benef Reviewed Patient Risk: Intermediate Procedure Risk: Intermediate Anesthetic Plan Anesthetic Plan: MAC: and Agree w/ Assess. and Plan Disposition: Standard PACU
[2023-06-24 09:51] VITALS: BP 103/56; PULSE 79; RESP 18; TEMP 36.6; O2SAT 97
[2023-06-24] MEDS: Tetracaine HCl/PF 0.5% Oph Sol 4 ML DROPS 1 DROP EYE-RIGHT (09:58)
[2023-06-24] MEDS: Phenylephrine HCL 2.5% Oph SoL 2 ML BOTTLE 1 DROP EYE-RIGHT ×3 (09:59→10:00)
[2023-06-24] MEDS: Ketorolac Tromethamine 0.5% Op 5 ML DROPS 1 DROP EYE-RIGHT ×3 (09:59→10:00)
[2023-06-24] MEDS: Cyclopentolate 1 % Ophth Sol 2 ML DRPBTL 1 DROP EYE-RIGHT ×3 (09:59→10:00)
[2023-06-24] MEDS: Tropicamide 1 % Ophth Sol 3 ML BTL 1 DROP EYE-RIGHT ×3 (09:59→10:00)
[2023-06-24 10:28] LABS: Glucose, Whole Blood 270 mg/dL (60-115)
--- NOTE | 2023-06-24 10:44 | P.PCNO_ITS ---
Ophthalmology Procedure Procedure Date of Service: 06/24/23 Ophthalmology Viscoelastic: Healdilshad Duet Dual Pack Pro Ophthalmology Lenses: TECJOSHUA [id number] (17) Procedure Notes: PREOPERATIVE DIAGNOSIS: Decreased visual acuity right eye secondary to cataract and glaucoma. POSTOPERATIVE DIAGNOSIS: Same PROCEDURE: Right cataract extraction with intraocular lens insertion and trabecu lectomy, right eye SURGEON: Bucky Castillo M.D. ANESTHESIA: Topical/MAC ESTIMATED BLOOD LOSS: None COMPLICATIONS: None After obtaining informed consent, the patient was brought to the operating room suite and placed in the supine position. After adequate sedation per anesthesia, topical drops of Tetracaine were given to the right eye. The eye was then prepped and draped in the usual sterile fashion. The operating room microscope was then positioned over the right eye and a lid speculum placed. 2% Lidocaine was instilled subconjunctivally. After awaiting 30 seconds, a paracentesis was created superiorly. Hemostasis was then achieved using wet field cautery. Mitomycin .4mg/ml was then placed in the conjunctival pocket and held in place for two minutes. The subconjunctival pocket was then irrigated copiously with 20 mls of BSS. Paracentesis was then created. Viscoelastic was then instilled into the anterior chamber. A crescent blade was then utilized to create a partial thickness sclera wound followed by advancement to clear cornea with the crescent blade. A keratome was then utilized to enter the anterior chamber. Capsulotomy forceps were then utilized to create a continuous circular tear capsulotomy. Hydrodissection and hydrodelineation were carried out until adequate mobilization of the nucleus occurred. Phacoemulsification was utilized to remove the dense central nucleus followed by removal of remnant cortical material utilizing the automated aspiration irrigation unit. Viscoelastic was then instilled into the posterior capsular bag followed by placement of a posterior chamber intraocular lens. Attention was then directed to create a trabeculectomy. A Kimberley punch was then utilized to create the trabeculectomy. The residual Viscoelastic was then removed utilizing the automated IA machine. The egress of aqueous was evaluated and found to be appropriate. The conjunctiva was then closed with a 9-0 vicryl suture. BSS was then instilled into the anterior chamber creating a superior bleb, without obvious leakage. Intracameral injection of Vigamox 0.3%, 0.1 ml and subtenon injection of Kenalog-40 0.2 ml was given followed by an atropine drop. The patient tolerated the procedure well and will be followed up in the a.m.
[2023-06-24 11:36] VITALS: BP 98/49; PULSE 59; RESP 14; TEMP 36.3; O2SAT 100
== END 2023-06-24 12:00 | disposition home or self-care (01) ==
PROVIDERS: PCP Internal Medicine; Visit Provider Ophthalmology
PROC: (CPT 66984; principal; 2023-06-24 10:50)
DX: H25.11 Age-related nuclear cataract, right eye (principal); H54.7 Unspecified visual loss; E11.36 Type 2 diabetes mellitus with diabetic cataract; H40.89 Other specified glaucoma; I11.0 Hypertensive heart disease with heart failure; I50.9 Heart failure, unspecified; E78.00 Pure hypercholesterolemia, unspecified; G47.33 Obstructive sleep apnea (adult) (pediatric); F17.210 Nicotine dependence, cigarettes, uncomplicated; Z89.512 Acquired absence of left leg below knee; Z88.1 Allergy status to other antibiotic agents; Z88.5 Allergy status to narcotic agent; Z88.8 Allergy status to other drugs, medicaments and biological substances; Z79.82 Long term (current) use of aspirin; Z79.4 Long term (current) use of insulin; Z79.899 Other long term (current) drug therapy
CPT/HCPCS: 66984; 66170; 82947; J2250; J3010; J3301; J7315; V2632

== ENCOUNTER 2024-03-03 11:30 | Outpatient (AMB) | payer MEDICARE, MEDICAID, SELFPAY ==
--- NOTE | 2024-03-03 11:32 | A.OFFVIS_ITS ---
Vital Signs 03/03/24 11:33 Height 5 ft 11 in Weight 244 lb BMI 34.0 Pulse 81 Pulse Source Pulse Oximeter Pulse Oximetry (%) 98 Oxygen Delivery Method Room Air Intake Visit Reasons: f/u appt-CONF Intake Note: Patient presents for follow up. Sugar Mixer Required: Yes Sugar Mixer Name: freddy herndon Allergies aspirin Allergy (Intermediate, Verified 03/03/24 11:37) Gastrointestinal Upset morphine Allergy (Intermediate, Verified 03/03/24 11:37) Seizure nicotine Allergy (Intermediate, Verified 03/03/24 11:37) Rash Medication List - Last Reconciled 03/03/24 by Robyn Morfin, NONI albuterol sulfate 90 mcg/actuation 2 puffs inhalation Q4-6H PRN aspirin 81 mg PO DAILY atorvastatin 80 mg PO DAILY brimonidine 0.1% (Alphagan P) 1 drp ophthalmic (eye) Q8H carvedilol 12.5 mg PO BID clonazepam 1 tab prn seizure lasting longer than 2 minutes, may repeat x's 1 orally . PRN; 30 days diphenhydramine HCl (Banophen) 25 mg PO Q8H PRN dorzolamide-timolol 22.3-6.8 mg/mL ophthalmic (eye) BID doxycycline monohydrate 100 mg PO BID escitalopram oxalate 10 mg PO DAILY evolocumab (Repatha SureClick) 140 mg subcut Q2W fluticasone propion-salmeterol 250-50 mcg/dose (Advair Diskus) 1 inh inhalation BID hydroxyzine HCl 25 mg PO BID PRN insulin detemir U-100 (Levemir FlexPen) 52 units subcut BEDTIME insulin lispro (Humalog KwikPen (U-100) Insulin) subcut latanoprost 0.005% 1 drp ophthalmic-Right BEDTIME levetiracetam ER (Keppra XR) 500 mg PO BID nitroglycerin (Nitrostat) 0.4 mg sublingual Q5M PRN phenytoin sodium extended 200 mg (2 x 100 mg) PO BID 90 days sacubitril-valsartan 49-51 mg (Entresto) 1 tab PO BID ticagrelor (Brilinta) 60 mg PO BID torsemide 20 mg PO DAILY HPI Comments Details: 38-yr-old female presents for f/u visit. Pt states he is doing ok. He has a right side of head cyst a/w right neck swelling. He denies interval seizure activity. Pt is compliant w/ phenytoin. There is Keppra now listed on pt's med list, Pt is not sure if he takes this or not. He denies ever having tried it for seizure before. We do not have labs ordered from last visit. [facility] Medical History (Updated 03/03/24 @ 12:15 by NONI Ochoa) Latent tuberculosis PLMD (periodic limb movement disorder) Asthma History of ST elevation myocardial infarction (STEMI) CHF (congestive heart failure) CAD (coronary artery disease) Microalbuminuria HLD (hyperlipidemia) Albuminuria Cardiomyopathy HTN (hypertension) Arthralgia Hypogonadism in male Anxiety GERD (gastroesophageal reflux disease) Diabetic retinopathy MINOO (obstructive sleep apnea) DM (diabetes mellitus), type 1 with renal complications Diabetes type I Surgical History Hx of detached retina repair Hx of hand surgery History of below-knee amputation of left lower extremity Hx of BKA Social History Are you a primary director of patient care to a significant other at home: No Do you presently have visiting nurse or other home services: Yes ( 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 Right head/neck swelling. Left BKA w/prosthetic. Steady gait w/ cane. General: patient oriented x3 Cognition (Neuro): normal cognition Psych Appearance: grossly normal Mental Status: mental status grossly normal Speech and movement: Normal speech and movement present Affect: normal affect Attitude: cooperative Thought process: Normal thought process present Thought content: Normal thought content present Insight: Good insight present (Psych) Judgement: Good judgement present (Psych) Assessment & Plan Assessment & Plan (1) Seizure: Code(s): R56.9 - Unspecified convulsions Category: Medical (2) Cyst of skin: Code(s): L72.9 - Follicular cyst of the skin and subcutaneous tissue, unspecified Category: Medical Plan Continue Phenytoin 200mg bid. Will call pharmacy to clarify Keppra use/dose. Clonazepam 2mg prn for breakthrough seizure lasting > 2 minutes. Check CBC, CMP, phenytoin level- pt will have these drawn today. For right-side of head cyst/swelling- pt advised to f/u w/ her gse mechanic. Check CBC f/u in 6 months or sooner prn. Medications: Refilled phenytoin sodium extended 200 mg (2 x 100 mg) PO BID 90 days 360 caps 1RF Coding Level of Care Code Est Pt Level 4 (15894) Diagnoses Seizure R56.9 Cyst of skin L72.9
[2024-03-03 11:33] VITALS: PULSE 81; O2SAT 98; BMI 34.0
== END 2024-03-03 12:14 | disposition home or self-care (01) ==
PROVIDERS: PCP Internal Medicine; Visit Provider Nurse Practitioner Family
DX: R56.9 Unspecified convulsions (principal); L72.9 Follicular cyst of the skin and subcutaneous tissue, unspecified
CPT/HCPCS: 99214

== ENCOUNTER → 2024-03-03 11:30 | Outpatient (BNVA) | payer MEDICARE, MEDICAID, SELFPAY | PROVIDERS: PCP Internal Medicine; Visit Provider Nurse Practitioner Family | DX: R56.9 Unspecified convulsions (principal); L72.9 Follicular cyst of the skin and subcutaneous tissue, unspecified | CPT/HCPCS: 36415; 80053; 80185; 85025; 99212 ==

== ENCOUNTER 2024-03-03 12:22 | Outpatient (REF) | payer MEDICARE, MEDICAID, SELFPAY ==
[2024-03-03 17:54] LABS: MANUAL DIFF FLAG NO
[2024-03-03 18:18] LABS: Basophils Absolute Auto 0.1 X10*3/uL (0.0-0.2); Basophils Percent Auto 0.4 % (0-2); Eosinophils Absolute Auto 0.9 X10*3/uL (0.0-0.4); Eosinophils Percent Auto 6.9 % (0-4); Hematocrit 32.9 % (42.0-52.0); Hemoglobin 11.5 g/dl (14.0-18.0); Imm Gran Abs Auto 0.05 X10*3/uL (0.00-0.03); Imm Gran Pct Auto 0.4 % (0.0-0.4); Lymphocytes Absolute Auto 2.1 X10*3/uL (1.2-4.9); Lymphocytes Percent Auto 15.7 % (20-40); Mean Corpuscular Hemoglobin 30.7 pg (27.0-33.0); Monocytes Absolute Auto 0.9 X10*3/uL (0.1-1.2); Monocytes Percent Auto 7.1 % (2-11); Neutrophils Absolute Auto 9.3 x10*3/uL (2.0-8.3); Neutrophils Percent Auto 69.5 % (45-73); Platelet Count 219 X10*3/uL (160-400); Red Blood Count 3.74 X10*6/uL (4.60-5.80); Red Cell Distribution Width 12.4 % (11.0-16.0); White Blood Count 13.3 X10*3/uL (4.8-10.8)
[2024-03-03 18:48] LABS: Alanine Aminotransferase 16 U/L (0-40); Albumin Level 3.3 g/dL (3.5-5.0); Alkaline Phosphatase 199 U/L (39-117); Anion Gap 12 (12-20); Aspartate Amino Transferase 9 U/L (5-37); Bilirubin Total 0.2 mg/dL (0.0-1.0); Blood Urea Nitrogen 8 mg/dL (9-16); Calcium 8.9 mg/dL (8.4-10.2); Carbon Dioxide 22 mmol/L (22-29); Chloride 109 mmol/L (96-108); Estimated Glomerular Filt Rate > 60; Glucose Random 314 mg/dL (60-115); Potassium 3.9 mmol/L (3.3-5.1); Sodium 139 mmol/L (135-145); Total Protein 7.1 g/dL (6.5-8.0)
[2024-03-03 22:16] LABS: Phenytoin Dilantin 4.2 ug/mL (10.0-20.0)
== END 2024-03-03 12:23 | disposition home or self-care (01) ==
LOC: HO.HKASLDS 12:22
PROVIDERS: Visit Provider Nurse Practitioner Family
DX: Z13.89 Encounter for screening for other disorder (principal)
CPT/HCPCS: 36415; 80053; 80185; 85025

== ENCOUNTER 2024-09-21 11:31 | Outpatient (AMB) | payer MEDICARE, MEDICAID, SELFPAY ==
--- NOTE | 2024-09-21 11:33 | MHC.OFFVIS ---
Vital Signs 09/21/24 11:40 Height 5 ft 11 in Weight 249 lb BMI 34.7 BP 118/80 Blood Pressure Location Rt brachial Position Sitting Intake Visit Reasons: 7 Month F/U Intake Note: Patient presents for a 7 mo fu. Pt has no concers. Java Web Services Developer Required: Yes Java Web Services Developer Language: Piano Sounding Board Matcher Services: Java Web Services Developer Offered & Declined ([facility] movie shot camera operator services refused ) Accompanied by: Other Relationship Allergies aspirin Allergy (Intermediate, Verified 09/21/24 11:38) Gastrointestinal Upset morphine Allergy (Intermediate, Verified 09/21/24 11:38) Seizure nicotine Allergy (Intermediate, Verified 09/21/24 11:38) Rash Medication List - Last Reconciled 09/21/24 by NONI Ochoa albuterol sulfate 90 mcg/actuation 2 puffs inhalation Q4-6H PRN aspirin 81 mg PO DAILY atorvastatin 80 mg PO DAILY carvedilol 12.5 mg PO BID clonazepam 1 tab prn seizure lasting longer than 2 minutes, may repeat x's 1 orally . PRN; 30 days diphenhydramine HCl (Banophen) 25 mg PO Q8H PRN doxycycline monohydrate 100 mg PO BID escitalopram oxalate 10 mg PO DAILY evolocumab (Repatha SureClick) 140 mg subcut Q2W fluticasone propion-salmeterol 250-50 mcg/dose (Advair Diskus) 1 inh inhalation BID hydroxyzine HCl 25 mg PO BID PRN insulin detemir U-100 (Levemir FlexPen) 52 units subcut BEDTIME insulin lispro (Humalog KwikPen (U-100) Insulin) subcut nitroglycerin (Nitrostat) 0.4 mg sublingual Q5M PRN phenytoin sodium extended 200 mg (2 x 100 mg) PO BID 90 days sacubitril-valsartan 49-51 mg (Entresto) 1 tab PO BID ticagrelor (Brilinta) 60 mg PO BID torsemide 20 mg PO DAILY HPI Comments Details: 38-yr-old female presents for f/u visit. Pt states he is doing overall well. After the last visit, he was tx'd for right scalp abscess which was positive for MRSA w/ I&D and IV ABTs. At that time, also dx'd and tx'd for right upper extremity basilic vein DVT- was given Lovenox while his Brilinta was held, and is now back on brilinta. He denies interval seizure activity. He states his last seizure was triggered by taking his phenytoin at different times, but now he takes it every 12 hrs. He states he is not taking Keppra. [facility] labs reviewed: ?[facility] Latest Ref Rng & Units 12/18/2023 07/08/2024 White Blood Cell Count 4.8 - 10.8 x10-3/uL 8.1 ? RBC 4.5 - 5.5 x10-6/uL 3.8(L) ? Hemoglobin 13.5 - 17.5 g/dL 11.8(L) ? Hematocrit 42 - 54 % 34.5(L) ? MCV 79 - 98 fL 91.0 ? MEAN CORPUSCULAR HEMOGLOBIN 27 - 32 pg 31.1 ? MCHC 32 - 37 g/dL 34.2 ? RED CELL DISTRIBUTION WIDTH 11 - 15 % 13.3 ? Platelet Count 130 - 400 x10-3/uL 295 ? MPV 7 - 11 fL 9.7 ? NRBC % AUTO <1 % 0.0 ? NEUTROPHILS % 49.3 ? LYMPHOCYTES % 28.5 ? MONO % % 8.8 ? EOSINOPHILS % 12.0 ? BASO % % 1.0 ? IMMATURE GRANULOCYTES % % 0.4 ? NRBC # AUTO <0.1 x10-3/uL 0.00 ? NEUT # 1.5 - 7.0 x10-3/uL 4.00 ? LYMPH # 1 - 5.0 x10-3/uL 2.31 ? MONO # 0.2 - 1.0 x10-3/uL 0.71 ? EOS # 0 - 0.5 x10-3/uL 0.97(H) ? BASO # 0 - 0.2 x10-3/uL 0.08 ? IMMATURE GRANULOCYTES # 0 - 0.03 x10-3/uL 0.03 ? GLUCOSE, PLASMA 70 - 100 mg/dL 120(H) 160(H) Blood Urea Nitrogen 5 - 25 mg/dL 13 14 creatinine 0.7 - 1.3 mg/dL 1.66(H) 1.40(H) GLOMERULAR FILTRATION RATE >60 53(L) 66 NA (WB) 135 - 145 mEq/L 142 139 K 3.5 - 5.5 mmol/L 4.0 3.4(L) Chloride 96 - 110 mmol/L 108 104 CARBON DIOXIDE 21 - 32 mmol/L 30 32 ANION GAP 3 - 11 4 3 CALCIUM 8.5 - 10.5 mg/dL 8.8 9.2 PROTEIN, TOTAL 6.0 - 8.0 G/dL 7.4 7.3 Albumin 3.2 - 5.0 G/dL 2.9(L) 3.5 Bilirubin, total 0.0 - 1.4 mg/dL 0.4 0.4 AST (SGOT) 10 - 42 U/L 14 20 ALT (SGPT) 10 - 60 U/L 27 36 Alk Phos 42 - 121 U/L 187(H) 205(H) Cholesterol 0 - 200 mg/dL ? 94 TRIGLYCERIDES 0 - 150 mg/dL ? 103 HDL >40 mg/dL ? 39(L) LDL 0 - 100 mg/dL ? 35 TC-HDLC RATIO 0 - 4.4 mg/dL ? 2.4 HbA1C <6.5 % 10.1(H) ? ESTIMATED AVERAGE GLUCOSE mg/dL 243 ? [facility] Medical History (Updated 09/27/24 @ 22:01 by NONI Ochoa) Latent tuberculosis PLMD (periodic limb movement disorder) Asthma History of ST elevation myocardial infarction (STEMI) CHF (congestive heart failure) CAD (coronary artery disease) Microalbuminuria HLD (hyperlipidemia) Albuminuria Cardiomyopathy HTN (hypertension) Arthralgia Hypogonadism in male Anxiety GERD (gastroesophageal reflux disease) Diabetic retinopathy MINOO (obstructive sleep apnea) DM (diabetes mellitus), type 1 with renal complications Diabetes type I Surgical History Hx of detached retina repair Hx of hand surgery History of below-knee amputation of left lower extremity Hx of BKA Social History Are you a primary child care centre director to a significant other at home: No Do you presently have visiting nurse or other home services: Yes ( 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 Clonazepam 2mg prn for breakthrough seizure lasting > 2 minutes. Check CBC, CMP, phenytoin level- pt will have these drawn today. f/u in 6 months or sooner prn. Orders: Orders Comprehensive Met. Panel 09/21/24 R56.9 - Unspecified convulsions Phenytoin Dilantin 09/21/24 R56.9 - Unspecified convulsions Phenytoin, Free/Unbound 09/21/24 R56.9 - Unspecified convulsions Complete Blood Count Auto Diff 09/21/24 R56.9 - Unspecified convulsions Medications: Refilled phenytoin sodium extended 200 mg (2 x 100 mg) PO BID 360 caps 1RF 90 days Coding Level of Care Code Est Pt Level 3 (56691) Diagnoses Seizure R56.9
[2024-09-21 11:40] VITALS: BP 118/80; BMI 34.7
== END 2024-09-21 12:15 | disposition home or self-care (01) ==
PROVIDERS: PCP Internal Medicine; Visit Provider Nurse Practitioner Family
DX: R56.9 Unspecified convulsions (principal)
CPT/HCPCS: 99213

== ENCOUNTER → 2024-09-21 11:31 | Outpatient (BNVA) | payer MEDICARE, MEDICAID, SELFPAY | PROVIDERS: PCP Internal Medicine; Visit Provider Nurse Practitioner Family | DX: R56.9 Unspecified convulsions (principal) | CPT/HCPCS: 99212 ==

== ENCOUNTER 2025-08-10 15:28 | Outpatient (AMB) | payer MEDICARE, MEDICAID, SELFPAY ==
--- OUTSIDE RECORDS SUMMARY | 2025-08-05 14:30 | XMS_ITS | Encounter Summary ---
Author Organization [facility] Address [address] [place] [address] Care Team Providers Care Rn Womens Health Name Role Phone Essie Kaplan MD Primary Care Provider [phone] Reason for Visit * Therapy (Routine) - Authorized Specialty Diagnoses / Procedures Referred By Ruth Ann contreras Referred To Contact Occupational Therapy Diagnoses Acute pain of left shoulder Marilyn Grady PA [address] [facility] [address] [place] [address] Phone: tel: fax: Referral ID Status Reason Start Date Expiration Date Visits Requested Visits Authorized [id number] Authorized Consult and Treat 07/20/2025 07/20/2026 12 12 Encounter Details Date Type Department Care Team (Late st Contact Info) Description 08/05/2025 3:30 PM EDT Treatment [facility] [address] [facility] [address] [place] [phone] Marilyn Barr, OT Acute pain of left shoulder (Primary Dx) Social History Tobacco Use Types Packs/Day Years Used Date Smoking Tobacco: Every Day Cigarettes Last attempted to quit: 01/05/2022 Smokeless Tobacco: Never Alcohol Use Standard Drinks/Week Comments No 0 (1 standard drink = 0.6 oz pur e alcohol) Housing Instability Answer Date Recorde d Are you worried that in the next 2 months you may not have stable housing? No 04/02/2025 Financial Risk Answer Date Recorded How hard is it for you to pa y for the very basics like food, housing, medical care, and air conditioning / heating? Not very hard 04/02/2025 Transportation Answer Date Recorded Has the lack of transportati on kept you from meetings, work, or from getting things needed for daily living? No Has the lack of transportati on kept you from medical appointments or from getting medications? No 04/02/2025 Food Risk Answer Date Recorded Within the past 12 months we worried whether our food would run out before we got money to buy more. Never true 04/02/2025 Within the past 12 months th e food we bought just didn't last and we didn't have money to get more. Never true 04/02/2025 Living Situation Answer Date Recorded What is your living situation? Unrecognized valu e 04/02/2025 Interpersonal Safety Answer Date Record ed Physical Abuse Unrecognized value 05/09/2025 Verbal Abuse Unrecognized value 05/09/2025 Sex and Gender Information Value Date Recorded Sex Assigned at Male 11/22/2024 6:40 AM EST Legal Sex Male 5:45 AM EST Gender Identity Male 11/22/2024 6:40 AM EST Sexual Orientation Straight 07/21/2025 12 :23 PM EDT documented as of this encounter Functional Status * Are you deaf or do you have serious difficulty hearing? Answer Date of Assessment Author No 03/31/2025 6:10 AM EDT Viktoria Lopez RN * Are you blind or do you have serious difficulty seeing, even when wearing glasses? Answer Date of Assessment Author Yes 03/31/2025 6:10 AM EDT Viktoria Lopez RN * Do you have serious difficulty walking or climbing stairs? Answer Date of Assessment Author Yes 03/31/2025 6:10 AM SHARIT Viktoria Lopez RN * Do you have serious difficulty dressing or bathing? Answer Date of Assessment Author Yes 03/31/2025 6:10 AM EDT John, Viktoria Cintron RN * Because of a physical, mental, or emotional condition, do you have serious difficulty doing errandsalone such as visiting the doctor? Answer Date of Assessment Author Yes 03/31/2025 6:10 AM EDT Viktoria Lopez RN documented as of this encounter Mental Status * Because of a physical, mental, or emotional condition, do you have serious difficulty concentrating, remembering, or making decisions? (5 years old or older) Answer Entry Date Author Yes 03/31/2025 6:10 AM EDT Viktoria Lopez RN documented in this encounter Progress Notes * Marilyn Barr OT - 08/05/2025 3:30 PM EDT [facility] - Outpatient OCCUPATIONAL THERAPY DAILY TREATMENT NOTE Date: 08/05/2025 Visit Number: [id number] Patient Name: Wilder Madison : 1985 Age: 40 y.o. Gender: male Diagnosis: No diagnosis found. Date of Onset: 07/20/2025 Referring Provider: Marilyn Grady PA Insurance: Payor: MEDICARE / Plan: MEDICARE PART A & B / Product Type: Medicare / Patient identified by: Marilyn Barr OT Language: Uzbek, session conducted in Uzbek Allergies: is allergic to piperacillin, acetaminophen, morphine, and nicotine. Precautions: : pt is blind, has L LE prosthesis and Uzbek speaking , notes no limitations for ROM SUBJECTIVE Subjective Report: She (therapist) taught me to do some ex's last time and that's helping Pain: 5/10 L shoulder OBJECTIVE Pt amb to clinic with assistance of his and his white cane. TREATMENT INTERVENTION Pt return demod HEP of prior session Seated LUE ranger in 3 grav-elim planes 3x10 each Tabletop incline radha Level1 incline bilaterally 2x10; radha box tabletop using LUE only in 4 directions 2x10 Seated scap retraction Seated L elbow flex w/ sup/ext w/ pro LUE supported on wedge for wrist 2# PRE; flex/ext/circumduction 2x10 each Pain Reassessment: no increase w/ above Assessment/Response To Treatment: First f/u visit, goals remain in progress Pt already reporting less pain and less guarding of movement vs last visit Patient Education: Education provided: Yes Education Provided To: Patient and Spouse/Significant Other utilizing Explanation mode(s) of education Response to Education: Good PLAN POC Development/Review: No Change in the Plan of Care; Participants: Patient GOALS Goals Addressed None Total Treatment Time: 40 Documentation completed by Marilyn Barr OT documented in this encounter Plan of Treatment Upcoming Encounters Date Type Department Care Team (Late st Contact Info) Description 08/11/2025 4:00 PM EST Treatment [facility] [address] [phone] Adamaris Mir, OT 08/18/2025 3:30 PM EST Treatment [facility] [address] [phone] Adamaris Mir, OT 08/25/2025 3:30 PM EST Treatment [facility] [address] [phone] Adamaris Mir, OT 08/26/2025 3:30 PM EST Ancillary Procedure [facility] [address] [facility] [address] [place] [phone] 09/01/2025 4:00 PM EST Treatment [facility] [address] [phone] Adamaris Mir, OT 09/08/2025 3:15 PM EST Office Visit Orthopedic Surgery - [place] 250 [address] [facility] [address] [place] [phone] hTee Read DPM [address] [place] [phone] 09/08/2025 3:30 PM EST Treatment [facility] [address] [phone] Adamaris Mir, OT 11/03/2025 3:45 PM EST Office Visit Internal Medicine - [place] 175 [facility] [address] [place] [phone] Essie Kaplan MD [address] [place] [phone] documented as of this encounter Goals Goal Patient Goal Type Associated Problems Recent Progress Patient-Stated? Author Pt will have no further complications from scrotal abcess General No Blanca Frias, RN OT pt goal General Yes Adamaris Mir OT Note: To increase ROM in his L UE to be able to use OT LTGs 8 visits General Yes Adamaris Mir OT Note: 1- pt will demo at least 150 sh flex and abd for donning clothing overhead and reaching 2- pt will demo full ER and IR for washing hair and back. 3- pt will demo increased use of his L UE to be able to eat with his L dominant hand Identify symptoms of Post Traumatic Stress Disorder General No Adamaris Mir OT documented as of this encounter Visit Diagnoses Diagnosis Acute pain of left shoulder- Primary documented in this encounter Additional Health Concerns Infection Onset Date Last Indicated Resolved Time ESBL Comment:03/24/25 Repeat Urine culture (+) ESBL E. Coli 11/21/2024 03/24/2025 documented as of this encounter Care Teams Rn Womens Health Relationship Specialty Start Date End Date Essie Kaplan MD [address] [place] [phone] PCP - General Internal Medicine 07/31/24 documented as of this encounter
--- NOTE | 2025-08-10 15:34 | A.OFFVIS_ITS ---
Vital Signs 08/10/25 15:35 Height 5 ft 11 in Weight 255 lb BMI 35.6 BP 110/80 Blood Pressure Location Lt brachial Position Sitting Pulse 77 Pulse Source Pulse Oximeter Pulse Oximetry (%) 100 Oxygen Delivery Method Room Air Intake Visit Reasons: Follow Up 6mo Intake Note: Patient presents for a 7 mo fu. Pt has no concers. Machine Pecan Gatherer Required: Yes Machine Pecan Gatherer Language: Relocation Services Specialist Services: Machine Pecan Gatherer Offered & Declined ([facility] log yard manager services refused ) Accompanied by: Self / Same As Patient Allergies aspirin Allergy (Intermediate, Verified 08/10/25 15:40) Gastrointestinal Upset morphine Allergy (Intermediate, Verified 08/10/25 15:40) Seizure nicotine Allergy (Intermediate, Verified 08/10/25 15:40) Rash Medication List - Last Reconciled 08/10/25 by NONI Ochoa albuterol sulfate 90 mcg/actuation 2 puffs inhalation Q4-6H PRN aspirin 81 mg PO DAILY atorvastatin 80 mg PO DAILY carvedilol 12.5 mg PO BID clonazepam 1 tab prn seizure lasting longer than 2 minutes, may repeat x's 1 orally . PRN; 30 days diphenhydramine HCl (Banophen) 25 mg PO Q8H PRN doxycycline monohydrate 100 mg PO BID escitalopram oxalate 10 mg PO DAILY evolocumab (Repatha SureClick) 140 mg subcut Q2W fluticasone propion-salmeterol 250-50 mcg/dose (Advair Diskus) 1 inh inhalation BID hydroxyzine HCl 25 mg PO BID PRN insulin detemir U-100 (Levemir FlexPen) 52 units subcut BEDTIME insulin lispro (Humalog KwikPen (U-100) Insulin) subcut nitroglycerin (Nitrostat) 0.4 mg sublingual Q5M PRN phenytoin sodium extended 200 mg (2 x 100 mg) PO BID 90 days sacubitril-valsartan 49-51 mg (Entresto) 1 tab PO BID ticagrelor (Brilinta) 60 mg PO BID torsemide 20 mg PO DAILY HPI Comments Details: 40-yr-old female presents for follow-up of seizure. Patient reports he had a ICD defibrillator placed in Jun 2025. His Entresto is currently on hold due to low blood pressure. He states he recently was declared legally blind, and expects to began to have services for the blind. 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 He denies any interval seizure activity. He is compliant with phenytoin 200 mg every 12 hours. He states his last seizure was triggered by taking his phenytoin at different times, but now he takes it every 12 hrs. His last dental exam was 2-3 years ago, he requires pre-tx w/ ABT. His last phenytoin level was in May of 2025 at [place], 2.2, slightly elevated. At the time, he was likely a bit dehydrated. [facility] Medical History (Updated 09/27/24 @ 22:01 by NONI Ochoa) History of below-knee amputation of left lower extremity Latent tuberculosis PLMD (periodic limb movement disorder) Asthma History of ST elevation myocardial infarction (STEMI) CHF (congestive heart failure) CAD (coronary artery disease) Microalbuminuria HLD (hyperlipidemia) Albuminuria Cardiomyopathy HTN (hypertension) Arthralgia Hypogonadism in male Anxiety GERD (gastroesophageal reflux disease) Diabetic retinopathy MINOO (obstructive sleep apnea) DM (diabetes mellitus), type 1 with renal complications Diabetes type I Surgical History Hx of detached retina repair Hx of hand surgery History of below-knee amputation of left lower extremity Hx of BKA Social History Are you a primary intensive care anaesthetist to a significant other at home: No Do you presently have visiting nurse or other home services: Yes ( 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 Steady gait w/ cane for the Blind General: patient oriented x3 Cognition (Neuro): normal cognition Psych Appearance: grossly normal Mental Status: mental status grossly normal Speech and movement: Normal speech and movement present Affect: normal affect Attitude: cooperative Assessment & Plan Assessment & Plan (1) Seizure: Code(s): R56.9 - Unspecified convulsions Category: Medical Plan Continue Phenytoin 200mg bid. Clonazepam 2mg prn for breakthrough seizure lasting > 2 minutes. Check CBC, CMP, phenytoin level- pt will have these drawn today. Advised to make a follow-up dental exam due to chronic phenytoin therapy. Pt to follow-up in 12 months or sooner prn. Orders: Orders Phenytoin Dilantin Today R56.9 - Unspecified convulsions Complete Blood Count Auto Diff Today R56.9 - Unspecified convulsions Phenytoin, Free/Unbound Today R56.9 - Unspecified convulsions Comprehensive Met. Panel Today R56.9 - Unspecified convulsions Medications: Refilled phenytoin sodium extended 200 mg (2 x 100 mg) PO BID 360 caps 3RF 90 days Coding Level of Care Code Est Pt Level 3 (17288) Diagnoses Seizure R56.9
[2025-08-10 15:35] VITALS: BP 110/80; PULSE 77; O2SAT 100; BMI 35.6
--- OUTSIDE RECORDS SUMMARY | 2025-08-10 18:14 | XMS_ITS | Encounter Summary ---
Author Organization [facility] Address [address] [place] [address] Care Team Providers Care Steam Drier Operator Name Role Phone Essie Kaplan MD Primary Care Provider [phone] Encounter Details Date Type Department Care Team ([facility] st Contact Info) Description 08/03/2025 Telephone Internal Medicine [facility] [address] [facility] [address] [place] [phone] Essie Kaplan MD [address] [place] [phone] Social History Tobacco Use Types Packs/Day Years [...] of Assessment Author No 03/31/2025 6:10 AM SHARIT John, Viktoria Cintron RN * Are you blind or do you have serious difficulty seeing, even when wearing glasses? Answer Date of Assessment Author Yes 03/31/2025 6:10 AM SHARIT John, Viktoria Cintron RN * Do you have serious difficulty walking or climbing stairs? Answer Date of Assessment Author Yes 03/31/2025 6:10 AM SHARIT John, As briseida Cintron RN * Do you have serious difficulty dressing or bathing? Answer Date of Assessment Author Yes 03/31/2025 6:10 AM SHARIT John, Viktoria Cintron RN * Because of a physical, mental, or emotional condition, do you have serious difficulty doing errandsalone such as visiting the doctor? Answer Date of Assessment Author Yes 03/31/2025 6:10 AM Viktoria Beard RN documented as of this encounter Mental Status * Because of a physical, mental, or emotional condition, do you have serious difficulty concentrating, remembering, or making decisions? (5 years old or older) Answer Entry Date Author Yes 03/31/2025 6:10 AM Viktoria Beard RN documented in this encounter Progress Notes * Essie Kaplan MD - 08/03/2025 3:53 PM EDT Pt is getting prosthesis from [address] [place] [address],/prosthetics and orthotics. Pt is asking if we can send the note . documented in this encounter Plan of Treatment Upcoming Encounters Date Type Department Care Team (Late st Contact Info) Description 08/11/2025 4:00 PM EST Treatment [facility] [address] [phone] Adamaris Mir, OT 08/18/2025 3:30 PM EST Treatment [facility] [address] [phone] Adamaris Mir, OT 08/25/2025 3:30 PM EST Treatment [facility] [address] [phone] Adamaris Mir, OT 08/26/2025 3:30 PM EST Ancillary Procedure [facility] 101 [address] [facility] 101 [place] [phone] 09/01/2025 4:00 PM EST Treatment [facility] [address] [phone] Adamaris Mir, OT 09/08/2025 3:15 PM EST Office Visit Orthopedic Surgery - [place] 250 175 [facility] 250 [place] [phone] Thee Read, DPM [address] [place] [phone] 09/08/2025 3:30 PM EST Treatment [facility] [address] [phone] Adamaris Mir, OT 11/03/2025 3:45 PM EST Office Visit Internal Medicine - [place] 175 [facility] 200 [place] [phone] Essie Kaplan MD [address] [place] [phone] documented as of this encounter Goals Goal [...] as of this encounter Visit Diagnoses Diagnosis Acquired absence of left leg below knee ([facility] V24, [facility] V28) 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 Coli 11/21/2024 03/24/2025 documented as of this encounter Care Teams Steam Drier Operator Relationship Specialty Start Date End Date Essie Kaplan MD [address] [place] [phone] PCP - General Internal Medicine 07/31/24 documented as of this encounter
--- OUTSIDE RECORDS SUMMARY | 2025-08-10 18:14 | XMS_ITS | Encounter Summary ---
Author Organization [facility] Address [address] [place] [address] Care Team Providers Care Fixed Wing Pilot Name Role Phone Essie Kaplan MD Primary Care Provider [phone] Encounter Details Date Type Department Care Team (Late st Contact Info) Description 09/22/2024 Lab Requisition [facility] - Main Lab [address] [facility] [place] [phone] Robyn Morfin FNP [address] [facility] [address] [place] [address] Unspecified convulsions (CMS/HCC V24, CMS/HCC V28) Social History Tobacco Use Types Packs/Day Years Used Date Smoking Tobacco: Every Day Cigarettes Last attempted to quit: 01/05/2022 Smokeless Tobacco: Never Alcohol Use Standard Drinks/Week Comments No 0 (1 standard drink = 0.6 oz pur e alcohol) Sex and Gender Information Value Date Recorded Sex Assigned at Male 11/22/2024 6:40 AM EST Legal Sex Male 5:45 AM EST Gender Identity Male 11/22/2024 6:40 AM EST Sexual Orientation Straight 07/21/2025 12 :23 PM EDT documented as of this encounter Plan of Treatment Upcoming Encounters Date Type Department Care Team (Late st Contact Info) Description 08/11/2025 4:00 PM EST Treatment [facility] [address] [facility] [address] [place] [phone] Adamaris Mir OT 08/18/2025 3:30 PM EST Treatment [facility] [address] [facility] [address] [place] [address] Adamaris Mir, OT 08/25/2025 3:30 PM EST Treatment [facility] [address] [facility] [address] [place] [phone] Adamaris Mir, OT 08/26/2025 3:30 PM EST Ancillary Procedure [facility] [address] [facility] [address] [place] [address] 09/01/2025 4:00 PM EST Treatment [facility] [address] [phone] Adamaris Mir, OT 09/08/2025 3:15 PM EST Office Visit Orthopedic Surgery - [facility] [address] [facility] 250 [place] [address] Thee Read, DG [address] [place] [address] 09/08/2025 3:30 PM EST Treatment [facility] [address] [phone] Adamaris Mir, OT 11/03/2025 3:45 PM EST Office Visit Internal Medicine - [facility] [address] [facility] 200 [place] [address] Essie Kaplan MD [address] [place] [phone] documented as of this encounter Procedures Procedure Name Priority Date/Time Associated Diagnosis Comments SST - GOLD Routine 09/22/2024 10:36 AM EST Unspecified convulsions (CMS/HCC) CBC WITH AUTO DIFFERENTIAL Routine 09/22/2024 10:36 AM EST Unspecified convulsions (CMS/HCC) RED - PLAIN Routine 09/22/2024 10:36 AM EST Unspecified convulsions (CMS/HCC) CBC AND DIFFERENTIAL Routine 09/22/2024 10:36 AM EST Unspecified convulsions (CMS/HCC) PHENYTOIN LEVEL, FREE Routine 09/22/2024 10:36 AM EST Unspecified convulsions (CMS/HCC) PHENYTOIN LEVEL, TOTAL Routine 10:36 AM EST Unspecified convulsions (CMS/HCC) COMPREHENSIVE METABOLIC PANEL Routine 09/22/2024 10:36 AM EST Unspecified convulsions (CMS/HCC) documented in this encounter Results * Phenytoin level total (09/22/2024 10:36 AM EST) Pathologist [facility] Phenytoin Level 10.8 10.0 - 20.0 mcg/mL LAB CHEMISTRY METHOD 09/23/2024 6:42 AM EST [facility] Blood Venous blood specimen / Unknown 09/22/2024 10:36 AM EST 09/23/2024 6:04 AM EST Robyn Morfin [facility] LAB BLOOD ORDERABLES Geetha l Result Performing Organization Address [facility]/ZIP Co de Phone Number [facility] [address] [place] [address], [place] [phone] * Red tube (09/22/2024 10:36 AM EST) Pathologist [facility] Extra Tube Hold for add-ons. 09/22/2024 4:01 PM EST [facility] Comment:Auto resulted. Blood Venous blood specimen / Unknown 09/22/2024 10:36 AM EST 09/22/2024 2:09 PM EST Robyn Morfin FNP LAB BLOOD ORDERABLES Geetha l Result [facility] [address] [place] [address], [place] [phone] * SST tube (09/22/2024 10:36 AM EST) Pathologist [facility] Extra Tube Hold for add-ons. 09/22/2024 4:01 PM [facility] Comment:Auto resulted. Blood Venous blood specimen / Unknown 09/22/2024 10:36 AM EST 09/22/2024 2:09 PM EST Robyn Morfin [facility] BLOOD ORDERABLES Geetha l Result [facility] [address] [place] [address], [place] [phone] * (ABNORMAL) CBC auto differential (09/22/2024 10:36 AM EST) [facility] WBC 9.1 4.8 - 10.8 K/mcL LAB HEMETOLOGY METHOD 09/22/2024 2:26 PM [facility] RBC 4.50 4.50 - 5.50 M/mcL LAB HEMETOLOGY METHOD 09/22/2024 2:26 PM [facility] Hemoglobin 14.1 13.5 - 17.5 g/dL LAB HEMETOLOGY METHOD 09/22/2024 2:26 PM [facility] Hematocrit 40.2(L) 42.0 - 54.0 % LAB HEMETOLOGY METHOD 09/22/2024 2:26 PM [facility] MCV 89.7 79.0 - 98.0 FL LAB HEMETOLOGY METHOD 09/22/2024 2:26 PM [facility] MCH 31.5 27.0 - 32.0 pcg LAB HEMETOLOGY METHOD 09/22/2024 2:26 PM [facility] MCHC 35.1 32.0 - 37.0 g/dL LAB HEMETOLOGY METHOD 09/22/2024 2:26 PM [facility] RDW 12.9 11.0 - 15.0 % LAB HEMETOLOGY METHOD 09/22/2024 2:26 PM [facility] Platelets 202 130 - 400 K/mcL LAB HEMETOLOGY METHOD 09/22/2024 2:26 PM [facility] MPV 10.9 7.0 - 11.0 FL LAB HEMETOLOGY METHOD 09/22/2024 2:26 PM [facility] NRBC 0.0 <1.0 % LAB HEMETOLOGY METHOD 09/22/2024 2:26 PM [facility] NRBC Absolute 0.00 <0.10 K/mcL LAB HEMETOLOGY METHOD 09/22/2024 2:26 PM [facility] Neutrophils Relative 45.6 % LAB HEMETOLOGY METHOD 09/22/2024 2:26 PM [facility] Lymphocytes Relative 24.6 % LAB HEMETOLOGY METHOD 09/22/2024 2:26 PM [facility] Monocytes Relative 7.0 % LAB HEMETOLOGY METHOD 09/22/2024 2:26 PM [facility] Eosinophils Relative 21.8 % LAB HEMETOLOGY METHOD 09/22/2024 2:26 PM [facility] Basophils Relative 0.8 % LAB HEMETOLOGY METHOD 09/22/2024 2:26 PM [facility] Immature Granulocytes Relative 0.2 % LAB HEMETOLOGY METHOD 09/22/2024 2:26 PM [facility] Neutrophils Absolute 4.16 1.50 - 7.00 K/mcL LAB HEMETOLOGY METHOD 09/22/2024 2:26 PM [facility] Lymphocytes Absolute 2.24 1.00 - 5.00 K/mcL LAB HEMETOLOGY METHOD 09/22/2024 2:26 PM [facility] Monocytes Absolute 0.64 0.20 - 1.00 K/mcL LAB HEMETOLOGY METHOD 09/22/2024 2:26 PM EST [facility] Eosinophils Absolute 1.99(H) 0.00 - 0.50 K/mcL LAB HEMETOLOGY METHOD 09/22/2024 2:26 PM EST [facility] Basophils Absolute 0.07 0.00 - 0.20 K/[facility] LAB HEMETOLOGY METHOD 09/22/2024 2:26 PM EST [facility] Immature Granulocytes Absolute 0.02 0.00 - 0.03 K/[facility] LAB HEMETOLOGY METHOD 09/22/2024 2:26 PM EST [facility] Blood Venous blood specimen / Unknown 09/22/2024 10:36 AM EST 09/22/2024 2:09 PM EST Robyn Morfin [facility] LAB BLOOD ORDERABLES Geetha l Result [facility] [address] [place] [address], * Phenytoin level free (09/22/2024 10:36 AM EST) Phenytoin, Free (Dilantin) 1.0 0.8 - 2.0 ug/mL 09/25/2024 12:56 PM EST [facility] Comment: Phenytoin free toxic level: >3.0 ug/mL If applicable, any drug confirmation testing reported here was developed and the performance characteristics determined by [facility]. This confirmation testing has not been cleared or approved by the FDA. The laboratory is regulated under CLIA as qualified to perform high-complexity testing. This test is used for patient testing purposes. It should not be regarded as investigational or for research. Test performed at [facility], [address] , [place] [address] Lesley Wall MD, PhD - [employer] Blood Venous blood specimen / Unknown 09/22/2024 10:36 AM EST 09/22/2024 2:09 PM EST Robyn Morfin [facility] BLOOD ORDERABLES Geetha israel Result [facility] [place] [place] [address] * (ABNORMAL) Comprehensive metabolic panel (09/22/2024 10:36 AM EST) [facility] Sodium 139 133 - 145 mmol/L LAB CHEMISTRY METHOD 09/23/2024 8:22 AM [facility] Potassium 3.7 3.5 - 5.5 mmol/L LAB CHEMISTRY METHOD 09/23/2024 8:22 AM [facility] Chloride 105 96 - 110 mmol/L LAB CHEMISTRY METHOD 09/23/2024 8:22 AM [facility] CO2 31 21 - 32 mmol/L LAB CHEMISTRY METHOD 09/23/2024 8:22 AM [facility] Anion Gap 3 3 - 11 LAB CHEMISTRY METHOD 09/23/2024 8:22 AM [facility] Glucose 233(H) 70 - 100 mg/dL LAB CHEMISTRY METHOD 09/23/2024 8:22 AM [facility] BUN 10 5 - 25 mg/dL LAB CHEMISTRY METHOD 09/23/2024 8:22 AM [facility] Creatinine 1.35(H) 0.70 - 1.30 mg/dL LAB CHEMISTRY METHOD 09/23/2024 8:22 AM [facility] eGFR 68 >=60 mL/min/1. 73m2 LAB CHEMISTRY METHOD 09/23/2024 8:22 AM [facility] Comment:Calculation based on the Chronic Kidney Disease Epidemiology Collaboration (CKD-EPI) equation refit without adjustment for race. BUN/Creatinine Ratio 7.4 LAB CHEMISTRY METHOD 09/23/2024 8:22 AM [facility] Calcium 9.0 8.5 - 10.5 mg/dL LAB CHEMISTRY METHOD 09/23/2024 8:22 AM [facility] AST (SGOT) 25 10 - 42 unit/L LAB CHEMISTRY METHOD 09/23/2024 8:22 AM [facility] ALT (SGPT) 45 10 - 60 unit/L LAB CHEMISTRY METHOD 09/23/2024 8:22 AM [facility] Alkaline Phosphatase 205(H) 42 - 121 unit/L LAB CHEMISTRY METHOD 09/23/2024 8:22 AM [facility] Total Protein 7.6 6.0 - 8.0 g/dL LAB CHEMISTRY METHOD 09/23/2024 8:22 AM [facility] Albumin 3.4 3.2 - 5.0 g/dL LAB CHEMISTRY METHOD 09/23/2024 8:22 AM [facility] Total Bilirubin 0.4 0.0 - 1.4 mg/dL LAB CHEMISTRY METHOD 09/23/2024 8:22 AM [facility] Blood Venous blood specimen / Unknown Venipuncture / Unknown 09/22/2024 10:36 AM EST 09/22/2024 2:09 PM EST Robyn Morfin [facility] BLOOD ORDERABLES Edit ed Result - Final [facility] [address] [place] [address], documented in this encounter Visit Diagnoses Diagnosis Unspecified convulsions (CMS/HCC V24, CMS/HCC V28) documented in this encounter Additional Health Concerns Infection Onset Date Last Indicated Resolved Time ESBL Comment:03/24/25 Repeat Urine culture (+) ESBL E. Coli 11/21/2024 03/24/2025 documented as of this encounter Care Teams Fixed Wing Pilot Relationship Specialty Start Date End Date Essie Kaplan MD [address] [phone] PCP - General Internal Medicine 07/31/24 documented as of this encounter
--- OUTSIDE RECORDS SUMMARY | 2025-08-10 18:14 | XMS_ITS ---
Author Name [facility] Organization Unknown Care Team Organization Name Specialty Phone Email Start Date End [facility] 05/26/2025
--- OUTSIDE RECORDS SUMMARY | 2025-08-10 18:14 | XMS_ITS | Clinical Summary ---
Author Organization [address] [place] [address] [place] [phone] Phone Care Team Providers Care Installation And Repair Technician Name Role Phone Essie Kaplan MD Primary Care Provider [phone] Allergies Active Allergy Reactions Criticality Noted Date Comments Acetaminophen 02/12/2022 Morphine Other,Hyperactive behavior 12/20/2016 Irritability, Hyperactivity aggressive Other Reaction(s): Myalgia and Joint Pain Nicotine Rash 12/27/2022 Piperacillin Itching High 12/27/2022 Medications betamethasone, augmented, (DIPROLENE-AF) 0.05 % cream Apply 1 Application topically 2 (two) times a day if needed (ITCHING). 04/14/20 24 Active blood-glucose sensor (Dexcom G5-G4 Sensor) device 1 Dose by Does not apply route continuous. 06/08/20 22 Active FREESTYLE LANCETS MISC Inject 1 Stick into the skin 4 times daily. 04/11/20 21 Active blood sugar diagnostic (FreeStyle Lite Strips) test strip Apply 1 Strip topically 4 times daily. 04/26/20 23 Active pen needle, diabetic (BD Ultra-Fine Short Pen Needle) 31 gauge x 5/16 needle Inject 1 Stick into the skin daily. 10/10/19 23 Active potassium chloride (KLOR-CON) 10 mEq CR tabletIndications: Hypertension, unspecified type Take 1 tablet (10 mEq total) by mouth 1 (one) time each day. 90 each 3 11/03/19 25 026 Active insulin lispro 100 unit/mL injection Inject under the skin 3 (three) times a day before meals. -Administer within 15 minutes of a meal Active atorvastatin (LIPITOR) 80 mg tablet Take 1 tablet (80 mg total) by mouth 1 (one) time each day. 90 each 3 04/22/20 25 026 Active Wegovy 0.25 mg/0.5 mL injection pen 04/12/20 25 Active torsemide (DEMADEX) 20 mg tablet Take 1.5 tablets (30 mg total) by mouth 1 (one) time each day. 90 tablet 1 05/31/20 25 Active insulin degludec (Tresiba FlexTouch U-100) 100 unit/mL (3 mL) injection pen Inject 60 Units under the skin at bedtime. 15 mL 2 07/01/20 25 Active phenytoin (DILANTIN) 100 mg ER capsule Take 1 capsule (100 mg total) by mouth 3 (three) times a day. Active docusate sodium (COLACE) 100 mg capsule Take 1 capsule (100 mg total) by mouth every 12 (twelve) hours. 60 capsule 07/12/20 25 025 Active aspirin 81 mg EC tablet Take 1 tablet (81 mg total) by mouth 1 (one) time each day. 90 tablet 3 07/20/20 25 Active evolocumab (Repatha Syringe) 140 mg/mL syringeIndications :Hyperlipidemia, unspecified hyperlipidemia type Inject 1 ML under the skin every 14 days. 6 mL 3 07/20/20 25 Active ticagrelor (Brilinta) 60 mg tabletIndications: Hypertension, unspecified type Take 1 tablet (60 mg total) by mouth 2 (two) times a day. 180 tablet 3 07/20/20 25 Active sacubitriL-valsart an (Entresto) 97-103 mg per tabletIndications: Hypertension, unspecified type Take 1 tablet by mouth 2 (two) times a day. 180 tablet 3 07/20/20 25 Active carvediloL (COREG) 6.25 mg tablet Take 2 tablets (12.5 mg total) by mouth 2 (two) times a day. 180 tablet 3 07/20/20 25 Active ketoconazole (NIZORAL) 2 % cream Apply thin layer to affected area BID for 2 weeks then stop. 30 g 3 08/03/20 25 Active sacubitriL-valsart an (Entresto) 97-103 mg per tabletIndications: Hypertension, unspecified type Take 1 tablet by mouth 2 (two) times a day. 180 tablet 3 11/03/19 25 025 Discontinu ed(Reorder ) ticagrelor (Brilinta) 60 mg tabletIndications: Hypertension, unspecified type Take 1 tablet (60 mg total) by mouth 2 (two) times a day. 180 tablet 2 11/03/19 25 025 Discontinu ed(Reorder ) carvediloL (COREG) 6.25 mg tablet TAKE 2 TABLETS BY MOUTH TWICE DAILY 360 tablet 1 02/26/20 25 025 Discontinu ed(Reorder ) aspirin 81 mg EC tablet Take 1 tablet (81 mg total) by mouth 1 (one) time each day. 90 tablet 2 04/22/20 25 025 Discontinu ed(Reorder ) evolocumab (Repatha Syringe) 140 mg/mL syringeIndications :Hyperlipidemia, unspecified hyperlipidemia type Inject 1 ML under the skin every 14 days. 6 mL 3 04/22/20 25 025 Discontinu ed(Reorder ) chlorhexidine (Hibiclens) 4 % external liquid Apply topically 1 (one) time each day if needed for wound care. 120 mL 2 06/09/20 25 025 polyethylene glycol (MIRALAX) 17 gram packet Take 17 g by mouth 1 (one) time each day for 3 days. 51 g 07/12/20 25 025 doxycycline hyclate (VIBRA-TABS) 100 mg tablet Take 1 tablet (100 mg total) by mouth 2 (two) times a day for 10 days. Take with a full glass of water and do not lie down for at least 30 minutes after. 20 each 07/15/20 25 025 Active Problems Problem Noted Date Diagnosed Date Acquired absence of left leg below knee ([facility] V24, [facility] V28) 08/03/2025 Type 2 diabetes mellitus wit h both eyes affected by proliferative retinopathy and macular edema, with long-term current use of insulin ([facility] V24, [facility] V28) 08/03/2025 Morbid (severe) obesity due to excess calories ([facility] V24, [facility] V28) 08/03/2025 Below-knee amputation of lef t lower extremity ([facility] V24, [facility] V28) 06/09/2025 Chest pain 05/08/2025 UTI (urinary tract infection) 03/24/2025 Testicular pain, right 03/24/2025 Encounter for change or js ping of nonsurgical wound dressing 10/21/2024 Cutaneous abscess of right axilla 10/21/2024 Cutaneous abscess of head (any part, except face ) 10/21/2024 Type 2 diabetes mellitus wit h hyperglycemia ([facility] V24, [facility] V28) 10/21/2024 Acute embolism and thrombosi s of superficial veins of right upper extremity 10/21/2024 Essential (primary) hypertension 10/21/2024 Assessment & Plan (05/31/2025 1:57 PM EDT): Blood pressure is well-controlled in the office today at 114/60. Continue carvedilol and Entresto as prescribed. Abscess of deep perineal space 09/27/2024 Ischemic cardiomyopathy 05/16/2022 Overview (07/08/2024): Last Assessment & Plan: Patient is currently euvolemic upon exam. Repeat echocardiogram showed unchanged low EF below 35%. We discussed AICD placement at length. All questions answered at this time. Patient reports he feels overwhelmed and is unsure if he wants to proceed with AICD placement. We will have patient meet with EP to further discuss. He plans to discuss this with his family as well. We will continue Entresto, carvedilol and current 20 mg dose of torsemide. He previously had his torsemide decreased due to ROBBI. Medication refills sent as requested Assessment & Plan (05/31/2025 2:46 PM EDT): Most recent echocardiogram from November 2023 showed a persistently reduced LV systolic function with an EF of 30-35%. He is scheduled for subcutaneous ICD implantation on 06/16/2025. He had extensive questions regarding indications for ICD and remains hesitant about moving forward with the procedure. I answered all his questions to the best of my ability. I suggested having another visit with the electrophysiology team to discuss it further. He does NOT want me to cancel his scheduled date at this time. I suggested still arranging an office visit with EP in the event that he does not go through with the procedure as scheduled and he is agreeable. I also ordered an echocardiogram to reassess cardiac function and structures. Otherwise he will continue on GDMT with carvedilol and high-dose Entresto. He is not a candidate for SGLT2i due to type I diabetes and and no MRA due to chronic kidney disease. I encouraged him to obtain a scale that has an audible feature. Patient is encouraged to follow a low-sodium, heart healthy diet, monitor daily weights and contact provider with any sudden increases such as 2 lbs overnight or 4-5 lbs over the course of a week, and/or for worsening shortness of breath and/or increased lower extremity edema. Assessment & Plan (04/22/2025 12:40 PM EDT): He has a quite severe ischemic cardiomyopathy and most recent LVEF by stress test was 31%. He was scheduled multiple times for subcu ICD and I discussed with him again about the procedure. Will give another attempt to reschedule procedure. Otherwise, we can bring him to see EP team again to have a further discussion. We discussed about tobacco cessation again. Continue GDMT. He is on high-dose Entresto and medium dose carvedilol. Because type 1 diabetes, he will not be a candidate for SGLT2 inhibitor. Need to clarify from pharmacy whether he is getting statin prescription. Atorvastatin 80 mg was on his list in the previous office visit and most recent admission H&P. Orders: Basic metabolic panel; Future CHF (congestive heart failure) ([facility] V24, [facility] V28) 11/13/2021 Overview (07/08/2024): Last Assessment & Plan: He has no obvious symptoms although with mild right lower extremity edema. We will repeat BMP and BNP. Continue current regimen. Assessment & Plan (05/31/2025 2:40 PM EDT): Aside from mild right lower extremity edema he appears euvolemic on physical exam. Lung sounds clear and he denies symptoms of shortness of breath, orthopnea and paroxysmal nocturnal dyspnea. Continue on torsemide and potassium supplement as prescribed. Assessment & Plan (04/22/2025 12:40 PM EDT): Stable. Will continue torsemide at current dose. Will repeat BMP. STEMI (ST elevation myocardi al infarction) ([facility] V24, [facility] V28) 11/09/2021 Overview (07/08/2024): Last Assessment & Plan: Recent inferior STEMI, status post PCI of RCA. We will continue dual antiplatelet therapy. Will resume atorvastatin at 80 mg daily. Will resume Repatha at previous dose. Discussed with him about chest pain protocol. Will prescribe nitroglycerin. Scrotal wall abscess 04/12/2021 Albuminuria 11/15/2020 Asthma 10/25/2020 CAD (coronary artery disease) 10/25/2020 Overview (07/08/2024): Last Assessment & Plan: Denies any angina. patient previously had PCI in October 2021. We will continue dual antiplatelet therapy though will reduce dose of Brilinta, will continue beta- catherine, high-dose statin and Repatha. Assessment & Plan (05/31/2025 2:39 PM EDT): Patient has a history of PCI to the mid LAD and PCI with initial POBA and aggressive manual aspiration thrombectomy followed by placement of a WILLA to the mid RCA. He denies anginal symptoms. Continue cardioprotective medical therapies with aspirin, Brilinta, atorvastatin, carvedilol and Repatha as prescribed. For any chest pain/discomfort, especially if associated with exertion, that lasts longer than 10-15 minutes and does not resolve with rest or sublingual nitroglycerin, patient has been encouraged to seek immediate medical attention by calling 911. DM (diabetes mellitus) ([facility] V24, [facility] V28 ) 10/25/2020 Hyperlipidemia 10/25/2020 Overview (07/08/2024): Last Assessment & Plan: Last lipid panel from September 2020. Total cholesterol 148, HDL 36, LDL 83. He will continue high intensity statin therapy and Repatha. We discussed stopping smoking. We discussed a low-cholesterol diet. Assessment & Plan (05/31/2025 2:47 PM EDT): Last lipid panel reviewed and under excellent control with an LDL 49 which is at goal of less than 50. Continue atorvastatin and Repatha as prescribed. Assessment & Plan (04/22/2025 12:40 PM EDT): Will continue Repatha and Orders: evolocumab (Repatha Syringe) 140 mg/mL syringe; Inject 1 ML under the skin every 14 days. Hypertension 10/25/2020 Overview (07/08/2024): Last Assessment & Plan: Well-controlled on current regimen of Entresto and carvedilol MINOO (obstructive sleep apnea) 10/25/2020 Overview (07/08/2024): Noncompliant with cpap Seizure disorder ([facility] V24, [facility] V28) 10/07 PLMD (periodic limb movement disorder) 9 Diabetic retinopathy ([facility] V24, [facility] V28) 07/08/2018 Overview (07/08/2024): Comments: Right eye Microalbuminuria 07/08/2018 Type 1 diabetes mellitus wit h eye manifestations ([facility] V24, [facility] V28) 07/08/2018 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 - Obstructive Sleep Apnea - moderate overall and mild in REM; mostly hypopneas and obstructive apneas; without sleep related hypoventilation by 2019 polysomnogram. PLMD noted on study. Type 1 diabetes mellitus wit h renal manifestations ([facility] V24, [facility] V28) 01/14/2018 Cardiomyopathy ([facility] V24, [facility] V28) 2016 Overview (07/08/2024): Last Assessment & Plan: This 37-year-old gentleman with an ischemic cardiomyopathy from prior myocardial infarction has an LVEF of 25 to 30% chronically despite optimal medical therapy. He is at increased risk of sudden cardiac due to ventricular arrhythmias. I had a long discussion with a manager process excellence going over the risks and benefits of implantable cardioverter defibrillator. I went through both transvenous system and subcutaneous system. I did screening for the subcutaneous system and he passes into vectors both supine and upright. Due to his type 1 diabetes mellitus and overall increased risk of infection I do think a subcutaneous device would be best as it avoids the intravascular lead resulting in a lower infection rate. I did discuss the potential for painful ICD discharges, pocket infection, general risks of anesthesia required for the procedure and the potential for future device generator replacements as well as the need for chronic device follow-up. He understands a very small risk of additional procedure related complications such as hematoma and complications from sedation. I reviewed the [facility] risk assessment tool with him and his family member in detail and he is in agreement to proceed with implantation of a subcutaneous ICD. We will continue his heart failure regimen and he understands that this will not replace his current medications which are going to improve outcome overall. He will continue a low-sodium diet and regular follow-up. Depression 07/25/2017 Benign essential hypertension 06/18/2017 GERD (gastroesophageal reflux disease) 7 Anxiety 03/25/2017 Hypogonadism, male 02/21/2016 Arthralgia of multiple sites 04/18/2015 Resolved Problems Problem Noted Date Diagnosed Date Resolved Date Insulin dependent type 2 winnie betes mellitus ([facility] V24, [facility] V28) 07/08/2024 03/24/2025 Substance abuse ([facility] V24, [facility] V28) 11/09/2014 08/03/2025 Overview (07/08/2024): Cannabis Encounters Date Type Department Care Team Description 08/05/2025 3:30 PM EDT Treatment [facility] Occupational Therapy [address] [phone] Marilyn Barr OT Acute pain of left shoulder (Primary Dx) 08/03/2025 3:15 PM EDT Office Visit Internal Medicine [facility] 175 [facility] [address] [place] [phone] Essie Kaplan MD Acquired absence of left leg below knee ([facility] V24, [facility] V28) (Primary Dx); Type 2 diabetes mellitus with both eyes affected by proliferative retinopathy and macular edema, with long-term current use of insulin ([facility] V24, [facility] V28); Morbid (severe) obesity due to excess calories ([facility] V24, [facility] V28); Substance abuse ([facility] V24, [facility] V28) 08/03/2025 Telephone Internal Medicine - [place] 175 [facility] [address] [place] [phone] Essie Kaplan MD 07/28/2025 3:30 PM EDT Evaluation [facility] Occupational Therapy [address] [place] [phone] Adamaris Mir OT Acute pain of left shoulder 07/28/2025 Plan of Care Documentation [facility] Occupational Therapy [address] [place] [phone] 07/20/2025 10:30 AM EDT Clinical Support [facility] Cardiology [facility] [address] [facility] [address] [place] [address] Acute pain of left shoulder (Primary Dx) 07/15/2025 1:00 PM EDT Ancillary Procedure [facility] Cardiology [facility] [address] [facility] [address] [place] [address] Encounter for adjustment or management of cardiac device 07/11/2025 8:22 PM EDT - 07/12/2025 12:50 AM EDT Emergency [facility] Emergency [address] [place] [address] Generalized abdominal pain (Primary Dx); Acute constipation Discharge Disposition: Home or Self Care 07/06/2025 6:25 PM EDT Ancillary Procedure [facility] [address] [facility] [address] [place] [address] 07/01/2025 10:00 AM EDT Office Visit Internal [facility] 175 [facility] [address] [place] [address] Essie Kaplan MD Type 2 diabetes mellitus with other circulatory complication, with long-term current use of insulin ([facility] V24, [facility] V28) (Primary Dx); Benign essential hypertension; Chronic congestive heart failure, unspecified heart failure type ([facility] V24, [facility] V28); Seizure disorder ([facility] V24, [facility] V28); Mixed hyperlipidemia 06/22/2025 Telephone Internal Medicine [facility] [address] [phone] Essie Kaplan MD 06/16/2025 12:21 PM EDT Anesthesia Event [facility] Cardiac Form Designer [address] [place] [address] Tommy Jose MD 06/16/2025 11:30 AM EDT - 06/16/2025 12:30 PM EDT Surgery [facility] Cardiac Form [facility]er [address] [place] [address] Srinivasa Gomes MD Eval subcutaneous ICD [91558 (CPT )] 06/16/2025 10:15 AM EDT - 06/16/2025 11:59 PM EDT Hospital Encounter [facility] [address] [place] [address] Srinivasa Gomes MD Ischemic cardiomyopathy Discharge Disposition: Home or Self Care 06/15/2025 Telephone Internal Medicine [facility] [place] [address] [phone] Essie Kaplan MD 06/09/2025 3:15 PM EDT Office Visit Orthopedic Surgery - [place] [address] [facility] [address] [place] [phone] Thee Read DPM Trench foot, right, initial encounter (Primary Dx); Dermatophytosis of nail; Pain in toe of right foot; Blister of right foot, initial encounter; Diabetic mononeuropathy simplex ([facility] V24, [facility] V28); Type II diabetes mellitus with peripheral circulatory disorder ([facility] V24, [facility] V28) 06/06/2025 6:46 PM EDT - 06/06/2025 11:17 PM EDT Emergency [facility] Emergency [address] [place] [phone] J Luis Aguilar MD Goebel, Mathew, MD Encounter for medical screening examination (Primary Dx); Chest pain, unspecified type; Esophageal spasm; Hyperglycemia; Anemia, unspecified type; Hypomagnesemia Discharge Disposition: Home or Self Care 05/31/2025 1:40 PM EDT Office Visit [facility] Cardiology [facility] [address] [facility] [address] [place] [address] Janie Vicente NP Chronic congestive heart failure, unspecified heart failure type ([facility] V24, [facility] V28) (Primary Dx); Ischemic cardiomyopathy; Essential (primary) hypertension; Mixed hyperlipidemia; Coronary artery disease involving shoalwater coronary artery of shoalwater heart without angina pectoris 05/31/2025 Telephone [facility] Cardiology [facility] [address] [facility] [address] [place] [address] Janie Vicente NP 05/21/2025 Telephone [facility] - [facility] [address] [facility] [address] [place] [address] Srinivasa Gomes MD 05/19/2025 Telephone [facility] - [facility] [address] [place] [address] Dejah Campos MD 05/17/2025 10:00 AM EDT Office Visit Internal Medicine - [place] 175 [facility] [address] [place] [phone] Essie Kaplan MD Other chest pain (Primary Dx); Type 2 diabetes mellitus with hyperglycemia, unspecified whether termite renewal inspector insulin use (CMS/HCC V24, CMS/HCC V28); Other congestive heart failure (CMS/HCC V24, CMS/HCC V28); Primary hypertension; Mixed hyperlipidemia 05/17/2025 Telephone Internal Medicine [facility] 175 [facility] [address] [place] [address] Essie Kaplan MD 05/11/2025 Telephone Internal Medicine [facility] 175 [facility] [address] [place] [phone] Essie Kaplan MD 05/10/[address] [phone] Jeanette Jones, PharmD from Last 3 Months Surgical History Surgery Date Site/Laterality Comments HAND SURGERY PROCEDURE: HISTORICAL HAND SURGERY OTHER SURGICAL HISTORY PROCEDURE: [place] TREATMENT EXTENSIVE RETINOPATHY PHOTOCOAGULATION; COMMENT: Laser treatments for retinopathy OTHER SURGICAL HISTORY Left PROCEDURE: RE-REPAIR DETACHED RETINA; COMMENT: with lens placement CORONARY STENT PLACEMENT LAD-2018, RCA-2021 LEG AMPUTATION Left Left -BKA Medical History Medical History Date Comments Obstructive sleep apnea 01/14/2018 DX:Obstr uctive sleep apnea Asthma 01/14/2018 DX:Asthma 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 DX:Latent tu berculosis Hyperlipidemia 01/14/2018 DX:Hyperlipidemi a Tobacco use 01/14/2018 DX:Tobacco use Anxiety 03/25/2017 DX:Anxiety Arthralgia of multiple sites 04/18/2015 DX: Arthralgia of multiple sites Benign essential hypertension 06/18/2017 DX :Benign essential hypertension Cardiomyopathy (CMS/HCC V24, CMS/HCC V28) 10/01/2017 DX:Cardiomyopathy (HCC) Depression 07/25/2017 DX:Depression Diabetic retinopathy (CMS/HC C V24, CMS/HCC V28) 07/08/2018 DX:Diabetic retinopathy (HCC ); COMMENT: Comments: Right eye GERD (gastroesophageal reflux disease) 04/03/2017 DX:GERD (gastroesophageal reflux disease) Hypogonadism, male 02/21/2016 DX:Hypogonadi sm, male Microalbuminuria 07/08/2018 DX:Microalbumin uria Seizure disorder ([facility] V2 4, [facility] V28) 04/15/2017 DX:Seizure disorder (HCC) Substance abuse ([facility] V24 , [facility] V28) 11/09/2014 DX:Substance abuse (HCC); CO MMENT: Cannabis Family History Medical History Relation Name Comments Diabetes Brother Brother (s) Diabetes Father Diabetes Mother Relation Name Status Comments Brother Father Mother Social History Tobacco Use Types Packs/Day Years Used Date Smoking Tobacco: Every Day Cigarettes Last attempted to quit: 01/05/2022 Smokeless Tobacco: Never Tobacco Cessation:Ready to Q uit: Not Asked; Counseling Given: Not Answered Alcohol Use Standard Drinks/Week Comments No 0 [...] Orientation Straight 07/21/2025 12 :23 PM EDT Obstetrics History Last Filed Vital Signs Vital Sign Reading Time Taken Comments Blood Pressure 100/65 08/03/2025 3:38 PM EDT Pulse 89 08/03/2025 3:38 PM EDT Temperature 36.2 C (97.1 F) 08/03/2025 3:38 PM EDT Respiratory Rate 18 08/03/2025 3:38 PM EDT Oxygen Saturation 96% 08/03/2025 3:38 PM EDT Inhaled Oxygen Concentration - - Weight 118 kg (260 lb) 08/03/2025 3:38 PM EDT Height 180.3 cm (5' 11 ) 08/03/2025 3:38 PM EDT Body Mass Index 36.26 08/03/2025 3:38 PM EDT Plan of Treatment Upcoming Encounters Date Type Department Care Team (Late st Contact Info) Description 08/11/2025 4:00 PM EST Treatment [facility] [address] [phone] Adamaris Mir, OT 08/18/2025 3:30 PM EST Treatment [facility] [address] [phone] Adamaris Mir, OT 08/25/2025 3:30 PM EST Treatment [facility] [address] [phone] Adamaris Mir, OT 08/26/2025 3:30 PM EST Ancillary Procedure [facility] [address] [phone] 09/01/2025 4:00 PM EST Treatment [facility] [address] [phone] Adamaris Mir, OT 09/08/2025 3:15 PM EST Office Visit Orthopedic Surgery - [place] 250 175 [facility] [address] [place] [phone] Thee Read, DPM [address] [place] [phone] 09/08/2025 3:30 PM EST Treatment [facility] 175 [facility] [address] [place] [phone] Adamaris Mir, OT 11/03/2025 3:45 PM EST Office Visit Internal Medicine - [place] 175 [facility] [address] [place] [phone] Essie Kaplan MD [address] [place] [phone] Health Maintenance Due Date Last Done Comments Diabetes: Annual Foot Exam 1994 Hepatitis A Vaccines (1 of 2 - Risk 2-dose series) 2003 Hepatitis B Vaccines (1 of 3 - 19+ 3-dose series) 2003 Pneumococcal Vaccine: Pediatrics (0 to 5 Years) and At-Risk Patients (6 to 49 Years) (1 of 2 - PCV) 2003 HPV Vaccines (1 - 3-dose SCDM series) 2011 Medicare Annual Wellness Visit 10/10/2023 10/10/2022 Diabetes: Annual Urine Albumin-Creatinine Ratio (uACR) 10/15/2023 10/15/2022 Depression Screening 10/07/2024 COVID-19 Vaccine ( season) 2025 Influenza Vaccine (#1) 2025 Diabetes: Blood Sugar Control Test (HGBA1C) 09/23/2025 03/24/2025, 12/14/2024, 11/03/2024, Additional history exists Social Influencers of Health Screening 04/02/2026 04/02/2025 Diabetes: Annual Retina Eye Exam 07/08/2026 07/08/2025 Diabetes: Annual GFR (Glomerular Filtration Rate) 07/11/2026 07/11/2025, 07/01/2025, 06/08/2025, Additional history exists Hypertension/CHF/CAD Annual BMP Blood Test 07/11/2026 07/11/2025, 07/01/2025, 06/08/2025, Additional history exists DTaP,Tdap,and Td Vaccines (2 - Td or Tdap) 06/02/2029 06/02/2019 Cholesterol Screening (Lipid Panel) 05/09/2030 05/09/2025, 11/03/2024, 07/08/2024, Additional history exists RSV Immunization Adult Patients (1 - 1-dose 75+ series) 2059 HIV Screening Completed 11/03/2024 Hepatitis C Screening Completed 11/03/2024, 021 HIB Vaccines Aged Out No longer eligi ble based on patient's age to complete this topic IPV Vaccines Aged Out No longer eligi ble based on patient's age to complete this topic MMR Vaccines Aged Out No longer eligi ble based on patient's age to complete this topic Meningococcal ACWY Vaccine Aged Out N o longer eligible based on patient's age to complete this topic Meningococcal B Vaccine Aged Out No l onger eligible based on patient's age to complete this topic RSV Immunization Patients Under 20 months Aged Out No longer eligible based on patient's age to complete this topic Varicella Vaccines Aged Out No longer eligible based on patient's age to complete this topic Goals Goal Patient Goal Type Associated Problems [...] Stress Disorder General No Adamaris Mir OT Medical Devices Implanted Type Area Emergency Medical Technician Basic Device Identifier Shelf Expiration Date Model / Serial / Lot Generator [place] [employer] Sicd Subq - [id number] - [id number] Implanted:Qty: 1 on 06/16/2025 by Srinivasa Gomes MD at [facility] Cardiac ICD Chest Wall [employer] MGMT [id number] 05/06/2026 [id number] / [id number] / Electrd Sq Emble S-Icd - [id number] - [id number] Implanted:Qty: 1 on 06/16/2025 by Srinivasa Gomes MD at [facility] Cardiac Lead N/A: Chest Wall [employer] MGMT [id number] 06/05/2026 [id number] / [id number] / Envelope Ecm Cangaroo Xlg - [id number] - [id number] Implanted:Qty: 1 on 06/16/2025 by Srinivasa Gomes MD at [facility] Vascular Grafts N/A: Chest Wall [employer] MED Modern Message (FKA [employer] MED) [id number] 09/18/2026 [id number]-009 -[id number] / CMCV-009 -XLG / [id number] Procedures Procedure Name Priority Date/Time Associated Diagnosis Comments CARDIAC DEVICE CHECK- IN CLINIC- MURJ Routine 07/15/2025 3:30 PM EDT Encounter for adjustment or management of cardiac device URINALYSIS WITH REFLEX MICROSCOPIC STAT 07/11/2025 11:39 PM EDT URINALYSIS WITH REFLEX MICROSCOPIC STAT 07/11/2025 11:39 PM EDT LIPASE STAT 07/11/2025 9:31 PM EDT MAGNESIUM STAT 07/11/2025 9:31 PM EDT CBC WITH AUTO DIFFERENTIAL STAT 07/11/2025 9:31 PM EDT COMPREHENSIVE METABOLIC PANEL STAT 07/11/2025 9:31 PM EDT CBC AND DIFFERENTIAL STAT 07/11/2025 9:31 PM EDT EXTERNAL DIABETIC RETINA EYE EXAM 07/08/2025 CARDIAC DEVICE CHECK- REMOTE- MURJ Routine 07/06/2025 6:24 PM EDT CBC WITH AUTO DIFFERENTIAL Routine 07/01/2025 10:54 AM EDT Type 2 diabetes mellitus with other circulatory complication, with long-term current use of insulin (CMS/HCC V24, CMS/HCC V28) Benign essential hypertension Chronic congestive heart failure, unspecified heart failure type (CMS/HCC V24, CMS/HCC V28) CBC AND DIFFERENTIAL Routine 07/01/2025 10:54 AM EDT Type 2 diabetes mellitus with other circulatory complication, with long-term current use of insulin (CMS/HCC V24, CMS/HCC V28) Benign essential hypertension Chronic congestive heart failure, unspecified heart failure type (CMS/HCC V24, CMS/HCC V28) BASIC METABOLIC PANEL Routine 07/01/2025 10:54 AM EDT Type 2 diabetes mellitus with other circulatory complication, with long-term current use of insulin (CMS/HCC V24, CMS/HCC V28) Benign essential hypertension Chronic congestive heart failure, unspecified heart failure type (CMS/HCC V24, CMS/HCC V28) XR CHEST 2 VIEWS Routine 06/16/2025 3:16 PM EDT EVAL SUBQ ICD Routine 06/16/2025 2:22 PM EDT Ischemic cardiomyopathy COMPLETE BLOOD COUNT Routine 06/08/2025 11:52 AM EDT Ischemic cardiomyopathy BASIC METABOLIC PANEL Routine 06/08/2025 11:52 AM EDT Ischemic cardiomyopathy PROTHROMBIN TIME WITH INR Routine 06/08/2025 11:52 AM EDT Ischemic cardiomyopathy ECG ANNOTATED 06/08/2025 ECG ANNOTATED 06/08/2025 TROPONIN I HIGH SENSITIVITY Timed 06/06/2025 8:57 PM EDT RHYTHM ECG, REPORT Routine 06/06/2025 8: 16 PM EDT D-DIMER STAT 06/06/2025 7:55 PM EDT PROTHROMBIN TIME WITH INR STAT 06/06/2025 7:55 PM EDT CBC WITH AUTO DIFFERENTIAL STAT 06/06/2025 7:55 PM EDT B-TYPE NATRIURETIC PEPTIDE STAT 06/06/2025 7:55 PM EDT MAGNESIUM STAT 06/06/2025 7:55 PM EDT LIPASE STAT 06/06/2025 7:55 PM EDT COMPREHENSIVE METABOLIC PANEL STAT 06/06/2025 7:55 PM EDT CBC AND DIFFERENTIAL STAT 06/06/2025 7:55 PM EDT TROPONIN I HIGH SENSITIVITY Timed 06/06/2025 7:55 PM EDT XR CHEST 1 VIEW STAT 06/06/2025 7:28 PM EDT ECG 12-LEAD STAT 06/06/2025 6:28 PM EDT ECG ANNOTATED 05/10/2025 LIPID PANEL WITH REFLEX TO DIRECT LDL Routine 05/09/2025 2:39 AM EDT HEMOGLOBIN A1C Add-On 03/24/2025 4:47 AM EDT HEPATITIS C ANTIBODY Routine 11/03/2024 12:05 PM EST Screen for STD (sexually transmitted disease) HIV 1, 2 ANTIBODY, P24 ANTIGEN WITH REFLEX TO DIFFERENTIATION Routine 11/03/2024 12:05 PM EST Screen for STD (sexually transmitted disease) HM URINE ALBUMIN CREATININE RATIO Routine 10/15/2022 from Last 3 Months or Most Recently Relevant to Health Maintenance Results * CARDIAC DEVICE CHECK- IN CLINIC- [facility] (07/15/2025 3:30 PM EDT) Date Time Interrogation Session [id number] CV DEVICE CHECK Type Interrogation Session InClinic CV DEVICE CHECK Implantable Pulse Generator Emergency Medical Technician Basic BSX CV DEVICE CHECK Implantable Pulse Generator Type S-ICD CV DEVICE CHECK Implantable Pulse Generator Model A219 CV DEVICE CHECK Implantable Pulse Generator Serial Number [id number] CV DEVICE CHECK Implantable Pulse Generator Implant Date 20250616 CV DEVICE CHECK Battery Remaining Percentage 98.00 CV DEVICE CHECK Battery Status Beginning of Service CV DEVICE CHECK Therapy Statistic Recent Shocks Delivered 0 CV DEVICE CHECK Zone Setting Type Category Conditional CV DEVICE CHECK Rate 200 CV DEVICE CHECK Therapies 80J CV DEVICE CHECK Zone Setting Status On CV DEVICE CHECK Zone ID 2 CV DEVICE CHECK Date of Service 2025-07-15 CV DEVICE CHECK Anatomical Region Laterality Modality Device Interroga tion 07/15/2025 Impressions 07/16/2025 7:51 AM EDT Normal In-Office: No Events * Normal Device Function * Alerts or events: None * Battery: Battery is at 98%, 98% * Electrode impedance status reviewed * S-ECG: was reviewed * Device Parameters were evaluated *Implant site painful per pt. Incision well-approximated with the exception of a pencil eraser-sized scab on the superior ~1/2 inch, closest to axilla. Assessed by LM- see EPIC for findings and photos. Abx started- pt scheduled to return on * Device remote agreement signed by spouse- JVD in to interpret. Narrative Procedure Note Srinivasa Gomes MD - 07/16/2025 IMPRESSION: Normal In-Office: No Events * Normal Device Function * Alerts or events: None * Battery: Battery is at 98%, 98% * Electrode impedance status reviewed * S-ECG: was reviewed * Device Parameters were evaluated *Implant site painful per pt. Incision well-approximated with theexception of a pencil eraser-sized scab on the superior ~1/2 inch, closestto axilla. Assessed by LM- see EPIC for findings and photos. Abx started-pt scheduled to return on * Device remote agreement signed by spouse- JVD in to interpret. us Order Referral Cardiovascular CV IMPLANTABLE CAR DIAC DEVICE PROCEDURES Final Result * Urinalysis with reflex microscopic (07/11/2025 11:39 PM EDT) [facility] [place] Urine 1.010 1.003 - 1.030 LAB URINALYSIS - AUTOMATED METHOD 07/12/2025 12:01 AM [facility] pH, Urine 6.5 5.0 - 8.0 pH LAB URINALYSIS - AUTOMATED METHOD 07/12/2025 12:01 AM [facility] Leukocytes, Urine Negative Negative LAB URINALYSIS - AUTOMATED METHOD 07/12/2025 12:01 AM [facility] Nitrite, Urine Negative Negative LAB URINALYSIS - AUTOMATED METHOD 07/12/2025 12:01 AM [facility] Protein, Urine Negative <=Trace mg/dL LAB URINALYSIS - AUTOMATED METHOD 07/12/2025 12:01 AM [facility] Glucose, Urine Negative Negative mg/dL LAB URINALYSIS - AUTOMATED METHOD 07/12/2025 12:01 AM [facility] Ketones, Urine Negative Negative mg/dL LAB URINALYSIS - AUTOMATED METHOD 07/12/2025 12:01 AM [facility] Urobilinogen, Urine 0.2 0.2 - 1.0 mg/dL LAB URINALYSIS - AUTOMATED METHOD 07/12/2025 12:01 AM [facility] Bilirubin, Urine Negative Negative LAB URINALYSIS - AUTOMATED METHOD 07/12/2025 12:01 AM [facility] Blood, Urine Negative Negative LAB URINALYSIS - AUTOMATED METHOD 07/12/2025 12:01 AM [facility] Urine Urine specimen obtained by clean catch procedure / Unknown Non-blood Collection / Unknown 07/11/2025 11:39 PM EDT 07/11/2025 11:50 PM EDT us Gabby OWENS LAB URINE ORDERABLES Fin al Result [facility] [address] [place] [address], [place] [phone] * (ABNORMAL) CBC auto differential (07/11/2025 9:31 PM EDT) Only the most recent of3 resultswithin the time period is included. [facility] Signature WBC 10.8 4.8 - 10.8 K/mcL LAB HEMETOLOGY METHOD 07/11/2025 10:05 PM [facility] RBC 4.00(L) 4.50 - 5.50 M/mcL LAB HEMETOLOGY METHOD 07/11/2025 10:05 PM [facility] Hemoglobin 11.9(L) 13.5 - 17.5 g/dL LAB HEMETOLOGY METHOD 07/11/2025 10:05 PM [facility] Hematocrit 36.6(L) 42.0 - 54.0 % LAB HEMETOLOGY METHOD 07/11/2025 10:05 PM [facility] MCV 91.7 79.0 - 98.0 FL LAB HEMETOLOGY METHOD 07/11/2025 10:05 PM [facility] MCH 29.8 27.0 - 32.0 pcg LAB HEMETOLOGY METHOD 07/11/2025 10:05 PM [facility] MCHC 32.5 32.0 - 37.0 g/dL LAB HEMETOLOGY METHOD 07/11/2025 10:05 PM [facility] RDW 12.4 11.0 - 15.0 % LAB HEMETOLOGY METHOD 07/11/2025 10:05 PM [facility] Platelets 238 130 - 400 K/mcL LAB HEMETOLOGY METHOD 07/11/2025 10:05 PM [facility] MPV 10.1 7.0 - 11.0 FL LAB HEMETOLOGY METHOD 07/11/2025 10:05 PM [facility] NRBC 0.0 <1.0 % LAB HEMETOLOGY METHOD 07/11/2025 10:05 PM [facility] NRBC Absolute 0.00 <0.10 K/mcL LAB HEMETOLOGY METHOD 07/11/2025 10:05 PM [facility] Neutrophils Relative 68.9 % LAB HEMETOLOGY METHOD 07/11/2025 10:05 PM [facility] Lymphocytes Relative 18.3 % LAB HEMETOLOGY METHOD 07/11/2025 10:05 PM [facility] Monocytes Relative 6.9 % LAB HEMETOLOGY METHOD 07/11/2025 10:05 PM [facility] Eosinophils Relative 4.9 % LAB HEMETOLOGY METHOD 07/11/2025 10:05 PM [facility] Basophils Relative 0.5 % LAB HEMETOLOGY METHOD 07/11/2025 10:05 [facility] Immature Granulocytes Relative 0.5 % LAB HEMETOLOGY METHOD 07/11/2025 10:05 PM [facility] Neutrophils Absolute 7.45(H) 1.50 - 7.00 K/mcL LAB HEMETOLOGY METHOD 07/11/2025 10:05 [facility] Lymphocytes Absolute 1.98 1.00 - 5.00 K/mcL LAB HEMETOLOGY METHOD 07/11/2025 10:05 PM [facility] Monocytes Absolute 0.75 0.20 - 1.00 K/mcL LAB HEMETOLOGY METHOD 07/11/2025 10:05 PM [facility] Eosinophils Absolute 0.53(H) 0.00 - 0.50 K/mcL LAB HEMETOLOGY METHOD 07/11/2025 10:05 PM [facility] Basophils Absolute 0.05 0.00 - 0.20 K/mcL LAB HEMETOLOGY METHOD 07/11/2025 10:05 PM EDT [facility] Immature Granulocytes Absolute 0.05(H) 0.00 - 0.03 K/mcL LAB HEMETOLOGY METHOD 07/11/2025 10:05 PM EDT [facility] Blood Venous blood specimen / Unknown Venipuncture / Unknown 07/11/2025 9:31 PM EDT 07/11/2025 9:56 PM EDT Corby Moser MD LAB BLOOD ORDERABLES Final Resul t Performing Organization Address City/[facility]/ZIP Co de Phone Number [facility] [address] [place] [address], * Magnesium (07/11/2025 9:31 PM EDT) Only the most recent of2 resultswithin the time period is included. Magnesium 2.2 1.9 - 2.6 mg/dL LAB CHEMISTRY METHOD 07/11/2025 10:52 PM EDT [facility] Comment:Hemolysis present Blood Venous blood specimen / Unknown Venipuncture / Unknown 07/11/2025 9:31 PM EDT 07/11/2025 9:56 PM EDT Gabby OWENS LAB BLOOD ORDERABLES Fin al Result Performing Organization Address City/[facility]/ZIP Co de Phone Number [facility] [address] [place] [address], [place] [phone] * Lipase (07/11/2025 9:31 PM EDT) Only the most recent of2 resultswithin the time period is included. Lipase 20 13 - 75 unit/L LAB CHEMISTRY METHOD 07/11/2025 10:52 PM EDT [facility] Blood Venous blood specimen / Unknown Venipuncture / Unknown 07/11/2025 9:31 PM EDT 07/11/2025 9:56 PM EDT us Gabby OWENS LAB BLOOD ORDERABLES Fin al Result [facility] [address] [place] [address], * (ABNORMAL) Comprehensive metabolic panel (07/11/2025 9:31 PM EDT) Only the most recent of2 resultswithin the time period is included. Pathologist [facility] Sodium 136 133 - 145 mmol/L LAB CHEMISTRY METHOD 07/11/2025 10:52 PM [facility] Potassium 5.1 3.5 - 5.5 mmol/L LAB CHEMISTRY METHOD 07/11/2025 10:52 PM [facility] Comment:Hemolysis present Chloride 104 96 - 110 mmol/L LAB CHEMISTRY METHOD 07/11/2025 10:52 PM [facility] CO2 26 21 - 32 mmol/L LAB CHEMISTRY METHOD 07/11/2025 10:52 PM [facility] Anion Gap 6 3 - 11 LAB CHEMISTRY METHOD 07/11/2025 10:52 PM [facility] Glucose 181(H) 70 - 100 mg/dL LAB CHEMISTRY METHOD 07/11/2025 10:52 PM [facility] BUN 29(H) 5 - 25 mg/dL LAB CHEMISTRY METHOD 07/11/2025 10:52 PM [facility] Creatinine 1.47(H) 0.70 - 1.30 mg/dL LAB CHEMISTRY METHOD 07/11/2025 10:52 PM [facility] eGFR 61 >=60 mL/min/1. 73m2 LAB CHEMISTRY METHOD 07/11/2025 10:52 PM [facility] Comment:Calculation based on the Chronic Kidney Disease Epidemiology Collaboration (CKD-EPI) equation refit without adjustment for race. BUN/Creatinine Ratio 19.7 LAB CHEMISTRY METHOD 07/11/2025 10:52 PM EDT [facility] Calcium 9.2 8.5 - 10.5 mg/dL LAB CHEMISTRY METHOD 07/11/2025 10:52 PM [facility] AST (SGOT) 46(H) 10 - 42 unit/L LAB CHEMISTRY METHOD 07/11/2025 10:52 PM [facility] Comment:Hemolysis present ALT (SGPT) 46 10 - 60 unit/L LAB CHEMISTRY METHOD 07/11/2025 10:52 PM [facility] Alkaline Phosphatase 179(H) 42 - 121 unit/L LAB CHEMISTRY METHOD 07/11/2025 10:52 PM [facility] Total Protein 7.6 6.0 - 8.0 g/dL LAB CHEMISTRY METHOD 07/11/2025 10:52 PM [facility] Albumin 3.2 3.2 - 5.0 g/dL LAB CHEMISTRY METHOD 07/11/2025 10:52 PM [facility] Total Bilirubin 0.3 0.0 - 1.4 mg/dL LAB CHEMISTRY METHOD 07/11/2025 10:52 PM [facility] Blood Venous blood specimen / Unknown Venipuncture / Unknown 07/11/2025 9:31 PM EDT 07/11/2025 9:56 PM EDT Corby Moser MD LAB BLOOD ORDERABLES Final Resul t [facility] [address] [place] [address], [place] [phone] * External Diabetic Retina Eye Exam Report (07/08/2025) Anatomical Region Laterality Modality Ultrasound us Provider [facility] IMG US PROCEDURES Final Result * Cardiac device check - Remote- MURJ (07/06/2025 6:24 PM EDT) Date Time Interrogation Session [id number] CV DEVICE CHECK Type Interrogation Session Remote Patient Initiated CV DEVICE CHECK Implantable Pulse Generator Emergency Medical Technician Basic BSX CV DEVICE CHECK Implantable Pulse Generator Type S-ICD CV DEVICE CHECK Implantable Pulse Generator Model A219 CV DEVICE CHECK Implantable Pulse Generator Serial Number [id number] CV DEVICE CHECK Implantable Pulse Generator Implant Date 20250616 CV DEVICE CHECK Battery Remaining Percentage 99.00 CV DEVICE CHECK Battery Status Beginning of Service CV DEVICE CHECK Therapy Statistic Recent Shocks Delivered 0 CV DEVICE CHECK Shock Measured Impedance 75 CV DEVICE CHECK Zone Setting Type Category Shock CV DEVICE CHECK Rate 250 CV DEVICE CHECK Therapies 80J CV DEVICE CHECK Zone Setting Status On CV DEVICE CHECK Zone ID 1 CV DEVICE CHECK Zone Setting Type Category Conditional CV DEVICE CHECK Rate 200 CV DEVICE CHECK Therapies 80J CV DEVICE CHECK Zone Setting Status On CV DEVICE CHECK Zone ID 2 CV DEVICE CHECK Date of Service 2025-09-15 CV DEVICE CHECK Anatomical Region Laterality Modality Device Interroga tion 06/16/2025 2:22 PM EDT Impressions 07/06/2025 12:25 PM EDT Normal Remote: No Events Initial Transmission * Alerts or events: None * Battery: Battery is at 99%, * Electrode Impedance status reviewed * Presenting Rhythm: was reviewed * Programmed parameters reviewed * No significant changes noted Narrative Procedure Note Srinivasa Gomes MD - 07/06/2025 IMPRESSION: Normal Remote: No Events Initial Transmission * Alerts or events: None * Battery: Battery is at 99%, * Electrode Impedance status reviewed * Presenting Rhythm: was reviewed * Programmed parameters reviewed * No significant changes noted Srinivasa Gomes MD CV IMPLANTABLE CARDIAC DEVICE PROCEDURES Final Result * (ABNORMAL) Basic metabolic panel (07/01/2025 10:54 AM EDT) Only the most recent of2 resultswithin the time period is included. Sodium 139 133 - 145 mmol/L LAB CHEMISTRY METHOD 07/01/2025 4:53 PM EDT [facility] Potassium 3.7 3.5 - 5.5 mmol/L LAB CHEMISTRY METHOD 07/01/2025 4:53 PM EDT [facility] Chloride 102 96 - 110 mmol/L LAB CHEMISTRY METHOD 07/01/2025 4:53 PM [facility] CO2 33(H) 21 - 32 mmol/L LAB CHEMISTRY METHOD 07/01/2025 4:53 PM [facility] Anion Gap 4 3 - 11 LAB CHEMISTRY METHOD 07/01/2025 4:53 PM [facility] Glucose 187(H) 70 - 100 mg/dL LAB CHEMISTRY METHOD 07/01/2025 4:53 PM [facility] BUN 23 5 - 25 mg/dL LAB CHEMISTRY METHOD 07/01/2025 4:53 PM [facility] Creatinine 1.39(H) 0.70 - 1.30 mg/dL LAB CHEMISTRY METHOD 07/01/2025 4:53 PM [facility] eGFR 66 >=60 mL/min/1. 73m2 LAB CHEMISTRY METHOD 07/01/2025 4:53 PM [facility] Comment:Calculation based on the Chronic Kidney Disease Epidemiology Collaboration (CKD-EPI) equation refit without adjustment for race. BUN/Creatinine Ratio 16.5 LAB CHEMISTRY METHOD 07/01/2025 4:53 PM [facility] Calcium 8.9 8.5 - 10.5 mg/dL LAB CHEMISTRY METHOD 07/01/2025 4:53 PM [facility] Blood Venous blood specimen / Unknown Venipuncture / Unknown 07/01/2025 10:54 AM EDT 07/01/2025 10:54 AM EDT us Essie Kaplan MD LAB BLOOD ORDERABLES Final Res ult [facility] [address] [place] [address], * XR Chest 2 Views (06/16/2025 3:16 PM EDT) Anatomical Region Laterality Modality Body Radiographic Khushi ging 06/16/2025 4:06 PM EDT Impressions 06/16/2025 4:08 PM EDT FINDINGS/IMPRESSION: Interval subcutaneous implantable cardiac defibrillator placement with generator over the left chest wall. Hypoventilatory examination with increased interstitial opacities which could be related to mild congestion though infectious/inflammatory process not excluded. No significant pleural effusions. -------- FINAL REPORT -------- Dictated By: Silvina Porter Dictated Date: 06/16/2025 16:06 ET Assigned Physician: Silvina Porter Reviewed and Electronically Signed By: Silvina Porter Signed Date: 06/16/2025 16:08 ET Workstation ID: [id number] Transcribed By: Self Edit Transcribed Date: 06/16/2025 16:06 ET Narrative 06/16/2025 4:08 PM EDT XR CHEST 2 VIEWS INDICATION: s/p ICD placement TECHNIQUE: XR CHEST 2 VIEWS COMPARISON: No priors available. Procedure Note Silvina Porter MD - 06/16/2025 XR CHEST 2 VIEWS INDICATION: s/p ICD placement TECHNIQUE: XR CHEST 2 VIEWS COMPARISON: No priors available. IMPRESSION: FINDINGS/IMPRESSION: Interval subcutaneous implantable cardiacdefibrillator placement with generator over the left chest wall.Hypoventilatory examination with increased interstitial opacities whichcould be related to mild congestion though infectious/inflammatory processnot excluded. No significant pleural effusions. -------- FINAL REPORT -------- Dictated By: Silvina Porter Dictated Date: 06/16/2025 16:06 ET Assigned Physician: Silvina Porter Reviewed and Electronically Signed By: Silvina Porter Signed Date: 06/16/2025 16:08 ET Workstation ID: [id number] Transcribed By: Self Edit Transcribed Date: 06/16/2025 16:06 ET us Nataliia A Styspeck HEALTH CARE FACILITIES INSPECTOR IMG XR PROCEDURES Final Re sult * EVAL SUBQ ICD (06/16/2025 2:22 PM EDT) Anatomical Region Laterality Modality X-Ray Angiograph y Narrative 06/17/2025 6:56 AM EDT Successful implantation of a subcutaneous ICD Clinical Background This is a 39-year-old man with diabetes, severe coronary disease, prior myocardial infarction with chronic systolic left ventricular dysfunction with LVEF of 30 to 35%, class III congestive heart failure in normal sinus rhythm for primary prevention ICD implant Procedure Details After obtaining written informed consent the patient was brought to the EP laboratory in the fasting state and was sedated by her anesthesiology service with deep sedation. After usual sterile prep and local anesthesia with 1% lidocaine with epinephrine and ultimately with Marcaine, I made a 4 cm incision in the left axilla after mapping for the proper location of the subcutaneous ICD and electrodes. I used blunt and cautery dissection to access the rib cage and pectoralis muscle and made a pocket for the device inferior and posteriorly directed. I made a 1 cm incision over the xiphoid. I then tunneled from the xiphoid to the axillary pocket. I secured the suture sleeve at the xiphoid using 1.0 Nurolon suture. I then tunneled the lead superiorly toward the sternal notch. I confirmed ideal location using fluoroscopy and then a attached the lead to the device generator. The generator was placed into a Kangaroo pouch which was then placed into the pocket. The pocket was irrigated with vancomycin prior to closure with 2 layers of 2.0 v-loc suture and 4.0 v-loc suture. I closed the subxiphoid incision with 2.0 Vicryl suture. Calculated impedance was 75 ohms. There was a stay suture placed in the header of the device against the muscle layer. The air was evacuated from the pocket and prior to closure. There was a minimal blood loss and no immediate complications. Testing was deferred due to the low impedance. Device implanted: [employer] [place] MRI S-ICD model #8219 serial #[id number] Defibrillator electrode: [employer] model number 12/09/2000 (45 cm) serial #[id number] us Srinivasa Gomes MD CV ELECTROPHYSIOLOGY PROCEDURE S Final Result * Prothrombin time with INR (06/08/2025 11:52 AM EDT) Only the most recent of2 resultswithin the time period is included. Protime 11.9 10.6 - 13.9 sec LAB COAGULATION METHOD 06/08/2025 2:23 PM EDT [facility] INR 0.9 LAB COAGULATION METHOD 06/08/2025 2:23 PM EDT [facility] Blood Venous blood specimen / Unknown Venipuncture / Unknown 06/08/2025 11:52 AM EDT 06/08/2025 11:52 AM EDT us Srinivasa Gomes MD LAB BLOOD ORDERABLES Final Res ult [facility] [address] [place] [address], [place] [phone] * (ABNORMAL) Complete blood count (06/08/2025 11:52 AM EDT) WBC 7.8 4.8 - 10.8 K/mcL LAB HEMETOLOGY METHOD 06/08/2025 2:20 PM EDT [facility] RBC 4.20(L) 4.50 - 5.50 M/mcL LAB HEMETOLOGY METHOD 06/08/2025 2:20 PM EDT [facility] Hemoglobin 12.8(L) 13.5 - 17.5 g/dL LAB HEMETOLOGY METHOD 06/08/2025 2:20 PM EDT [facility] Hematocrit 37.4(L) 42.0 - 54.0 % LAB HEMETOLOGY METHOD 06/08/2025 2:20 PM EDT [facility] MCV 89.3 79.0 - 98.0 FL LAB HEMETOLOGY METHOD 06/08/2025 2:20 PM EDT [facility] MCH 30.5 27.0 - 32.0 pcg LAB HEMETOLOGY METHOD 06/08/2025 2:20 PM EDT [facility] MCHC 34.2 32.0 - 37.0 g/dL LAB HEMETOLOGY METHOD 06/08/2025 2:20 PM EDT [facility] RDW 12.4 11.0 - 15.0 % LAB HEMETOLOGY METHOD 06/08/2025 2:20 PM EDT [facility] Platelets 226 130 - 400 K/mcL LAB HEMETOLOGY METHOD 06/08/2025 2:20 PM EDT [facility] MPV 10.2 7.0 - 11.0 FL LAB HEMETOLOGY METHOD 06/08/2025 2:20 PM EDT [facility] NRBC 0.0 <1.0 % LAB HEMETOLOGY METHOD 06/08/2025 2:20 PM EDT [facility] NRBC Absolute 0.00 <0.10 K/mcL LAB HEMETOLOGY METHOD 06/08/2025 2:20 PM EDT [facility] Blood Venous blood specimen / Unknown Venipuncture / Unknown 06/08/2025 11:52 AM EDT 06/08/2025 11:52 AM EDT us Srinivasa Gomes MD LAB BLOOD ORDERABLES Final Res ult [facility] [address] [place] [address], [place] [phone] * ECG-Annotated (06/08/2025) Only the most recent of3 resultswithin the time period is included. us Provider Onbase ECG ORDERABLES Final Result * Troponin I high sensitivity (06/06/2025 8:57 PM EDT) Only the most recent of2 resultswithin the time period is included. High Sensitivity Troponin I 6 <=79 ng/L LAB CHEMISTRY METHOD 06/06/2025 10:22 PM EDT [facility] Blood Venous blood specimen / Unknown Venipuncture / Unknown 06/06/2025 8:57 PM EDT 06/06/2025 9:25 PM EDT [facility] - 06/06/2025 10:22 PM EDT High levels of biotin in samples may falsely decrease hsTroponin values. Use caution when interpreting hsTroponin results in patients taking biotin who exhibit renal impairment (eGFR <60) or in patients taking more than 20 mg/day of biotin. J Luis Aguilar MD LAB BLOOD ORDERABLES Final Res ult [facility] [address] [place] [address], * RHYTHM ECG, REPORT (06/06/2025 8:16 PM EDT) J Luis Cabrera MD - 06/06/2025 8:16 PM EDT J Luis Aguilar MD 06/06/2025 9:35 PM ECG Rhythm Interpretation and Report Date/Time: 06/06/2025 8:16 PM Performed by: J Luis Aguilar MD Authorized by: J Luis Aguilar MD ECG interpreted by ED Physician in the absence of a chalk tester: yes Previous ECG: Previous ECG: Compared to current Comparison to previous ECG: See below. Interpretation: Interpretation: non-specific Quality: Tracing quality: Limited by artifact Rate: ECG rate assessment: normal Rhythm: Rhythm: sinus rhythm Ectopy: Ectopy: none Comments: EKG shows sinus rhythm at [address] changes, no T wave inversions, slight left axis deviation, poor R wave progression, not significantly changed compared with EKG from 05/09/2025, independently reviewed and interpreted contemporaneously by me is an abnormal but nonischemic EKG. J Luis Aguilar MD ECG ORDERABLES Final Result * D-Dimer (06/06/2025 7:55 PM EDT) D-Dimer, Quant (D-DU) <150 <=230 ng/mL DDU LAB COAGULATION METHOD 06/06/2025 8:38 PM EDT [facility] Blood Venous blood specimen / Unknown Venipuncture / Unknown 06/06/2025 7:55 PM EDT 06/06/2025 8:19 PM EDT Narrative [facility] - 06/06/2025 8:38 PM EDT D-Dimer <230 ng/mL (D-Dimer units) is the threshold for exclusion of DVT/PE. D-Dimer may be elevated in: Critically ill, severely infected, trauma patients, DIC, acute CVA, acute KS, unstable angina, AF, old age, , and smoking. D-Dimer may be decreased with: Initiation of heparin therapy and oral anticoagulants. us J Luis Aguilar MD LAB BLOOD ORDERABLES Final Res ult Performing Organization Address [facility]/ZIP Co de Phone Number [facility] [address] [place] [address], [place] [phone] * B-type natriuretic peptide (06/06/2025 7:55 PM EDT) BNP 20 <=100 pcg/mL LAB CHEMISTRY METHOD 06/06/2025 8:57 PM EDT [facility] Blood Venous blood specimen / Unknown Venipuncture / Unknown 06/06/2025 7:55 PM EDT 06/06/2025 8:19 PM EDT us J Luis Aguilar MD LAB BLOOD ORDERABLES Final Res ult [facility] [address] [place] [address], [place] [phone] * XR Chest 1 View (06/06/2025 7:28 PM EDT) Anatomical Region Laterality Modality Body Radiographic Khushi ging 06/07/2025 7:48 AM EDT Impressions 06/07/2025 7:49 AM EDT No focal pneumonia or alveolar edema. -------- FINAL REPORT -------- Dictated By: Iain Mason Dictated Date: 06/07/2025 07:48 ET Assigned Physician: Iain Mason Reviewed and Electronically Signed By: Iain Mason Signed Date: 06/07/2025 07:49 ET Workstation ID: [id number] Transcribed By: Self Edit Transcribed Date: 06/07/2025 07:48 ET Narrative 06/07/2025 7:49 AM EDT EXAMINATION: CHEST CLINICAL INFORMATION: Chest pain COMPARISON: Frontal view 05/08/25 TECHNIQUE: Portable frontal sitting view of the chest FINDINGS: Devices overlie the patient. Mild rotation to the right. The cardiac size is top normal but likely unchanged. There is no mediastinal or hilar mass. There is no alveolar edema or focal consolidation. No pneumothorax or pleural fluid. Procedure Note Iain Mason MD - 06/07/2025 EXAMINATION: CHEST CLINICAL INFORMATION: Chest pain COMPARISON: Frontal view 05/08/25 TECHNIQUE: Portable frontal sitting view of the chest FINDINGS: Devices overlie the patient. Mild rotation to the right. The cardiac size is top normal but likely unchanged. There is nomediastinal or hilar mass. There is no alveolar edema or focalconsolidation. No pneumothorax or pleural fluid. IMPRESSION: No focal pneumonia or alveolar edema. -------- FINAL REPORT -------- Dictated By: Iain Mason Dictated Date: 06/07/2025 07:48 ET Assigned Physician: Iain Mason Reviewed and Electronically Signed By: Iain Mason Signed Date: 06/07/2025 07:49 ET Workstation ID: [id number] Transcribed By: Self Edit Transcribed Date: 06/07/2025 07:48 ET J Luis Aguilar MD IMG XR PROCEDURES Final Result * ECG 12 lead (06/06/2025 6:28 PM EDT) Ventricular Rate ECG 78 BPM GEMUSE Atrial Rate 78 BPM GEMUSE P-R Interval 184 ms GEMUSE QRS Duration 118 ms GEMUSE Q-T Interval 382 ms GEMUSE QTc 435 ms GEMUSE P Wave Hickman 28 degrees GEMUSE R Hickman -31 degrees GEMUSE T Hickman 70 degrees GEMUSE ECG Interpretation Normal sinus rhythm Left axis deviation Left ventricular hypertrophy with QRS widening ( R in aVL , Luis product ) Nonspecific T wave abnormality Abnormal ECG When compared with ECG of 09-MAY-2025 06:41, Nonspecific T wave abnormality no longer evident in Inferior leads Confirmed by COLE PERKINS ([id number]) on 06/07/2025 7:43:23 AM GEMUSE 06/06/2025 6:28 PM EDT 06/07/2025 7:43 AM EDT us J Luis Aguilar MD ECG ORDERABLES Final Result GEMUSE * (ABNORMAL) Lipid panel with reflex to direct LDL (05/09/2025 2:39 AM EDT) Cholesterol 113 0 - 200 mg/dL LAB CHEMISTRY METHOD 05/09/2025 3:09 AM [facility] Triglycerides 168(H) 0 - 150 mg/dL LAB CHEMISTRY METHOD 05/09/2025 3:09 AM [facility] HDL 30(L) >=40 mg/dL LAB CHEMISTRY METHOD 05/09/2025 3:09 AM [facility] LDL Calculated 49 0 - 100 mg/dL LAB CHEMISTRY METHOD 05/09/2025 3:09 AM [facility] VLDL Cholesterol Zoltan 33.6 mg/dL LAB CHEMISTRY METHOD 05/09/2025 3:09 AM [facility] Non HDL Chol. (LDL+VLDL) 83 <145 mg/dL LAB CHEMISTRY METHOD 05/09/2025 3:09 AM [facility] Chol/HDL Ratio 3.8 0.0 - 4.4 LAB CHEMISTRY METHOD 05/09/2025 3:09 AM [facility] Blood Venous blood specimen / Unknown Venipuncture / Unknown 05/09/2025 2:39 AM EDT 05/09/2025 2:43 AM EDT us Marco Antonio Willingham MD LAB BLOOD ORDERABLES Final Resu lt Performing Organization Address City/[facility]/ZIP Co de Phone Number [facility] [address] [place] [address], [place] [phone] * (ABNORMAL) Hemoglobin A1c (03/24/2025 4:47 AM EDT) Pathologist [facility] Hemoglobin A1C 8.9(H) <6.5 % LAB CHEMISTRY METHOD 03/24/2025 12:34 PM EDT [facility] Mean Bld Glu Estim. 209 mg/dL LAB CHEMISTRY METHOD 03/24/2025 12:34 PM EDT [facility] Blood Venous blood specimen / Unknown Venipuncture / Unknown 03/24/2025 4:47 AM EDT 03/24/2025 4:55 AM EDT Kimberly Patton HEALTH CARE FACILITIES INSPECTOR LAB BLOOD ORDERABLES Final Res ult Performing Organization Address [facility] Co de Phone Number [facility] [address] [place] [address], [place] [phone] * Hepatitis C antibody (11/03/2024 12:05 PM EST) [facility] Hepatitis C Antibody Negative Negative LAB CHEMISTRY METHOD 11/03/2024 3:32 PM EST [facility] Blood Venous blood specimen / Unknown Venipuncture / Unknown 11/03/2024 12:05 PM EST 11/03/2024 12:05 PM EST Mandeep Rainey HEALTH CARE FACILITIES INSPECTOR LAB BLOOD ORDERABLES Final Resul t Performing Organization Address [facility]/ZIP Co de Phone Number [facility] [address] [place] [address], [place] [phone] * HIV 1,2 antibody, p24 antigen with reflex to differentiation (11/03/2024 12:05 PM EST) HIV Combo AB/AG Negative Negative LAB CHEMISTRY METHOD 11/03/2024 3:32 PM EST [facility] Blood Venous blood specimen / Unknown Venipuncture / Unknown 11/03/2024 12:05 PM EST 11/03/2024 12:05 PM EST Narrative [facility] - 11/03/2024 3:32 PM EST This assay is a 4th generation assay allowing for earlier detection of HIV infection by detecting the presence of the HIV-1 p24 antigen as well as the traditional antibodies to HIV type 1 (including group O) and type 2. Use of a 4th generation assay is the current CDC recommendation for HIV screening. Mandeep Rainey NP LAB BLOOD ORDERABLES Final Resul t [facility] [address] [place] [address], * HM Urine Albumin Creatinine Ratio (10/15/2022) Pathologist [facility] Urine Albumin Creatinine Ratio abstracted Historical Provider HEALTH MAINTENANCE Final Result from Last 3 Months or Most Recently Relevant to Health Maintenance Additional Health Concerns Infection Onset Date Last Indicated ESBL Comment:03/24/25 Repeat Urine culture (+) ESBL E. 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 Health Care Decision (hx) 06/19/2021 AD MCKEON DIRECTIVE Health Care Decision (hx) 06/19/2021 AD MCKEON DIRECTIVE Health Care Decision (hx) 06/19/2021 AD MCKEON DIRECTIVE Health Care Decision (hx) 06/19/2021 AD MCKEON DIRECTIVE Health Care Decision (hx) 06/19/2021 AD MCKEON DIRECTIVE Health Care Decision (hx) 06/19/2021 AD MCKEON DIRECTIVE Health Care Decision (hx) 06/19/2021 AD MCKEON DIRECTIVE Health Care Decision (hx) 06/19/2021 AD MCKEON DIRECTIVE Health Care Decision (hx) 06/19/2021 AD MCKEON DIRECTIVE Health Care Decision (hx) 06/19/2021 AD MCKEON DIRECTIVE Health Care Decision (hx) 06/19/2021 AD MCKEON DIRECTIVE Health Care Decision (hx) 06/19/2021 AD MCKEON DIRECTIVE Health Care Decision (hx) 06/19/2021 AD MCKEON DIRECTIVE Health Care Decision (hx) 06/19/2021 AD MCKEON DIRECTIVE Health Care Decision (hx) 06/19/2021 AD MCKEON DIRECTIVE Health Care Decision (hx) 06/19/2021 AD MCKEON DIRECTIVE Health Care Decision (hx) 06/19/2021 AD MCKEON DIRECTIVE * Full Code - Confirmed (Latest Code Status on File) Date Activated Date Inactivated Comments 05/09/2025 1:41 AM 05/09/2025 7:31 PM This code stat us was ascertained in the following way: Code status discussion: discussion with patient To update the patient's code status, place a code status order. Do not modify or discontinue any currently active code status orders. * Full Code - Default Date Activated Date Inactivated Comments 05/08/2025 11:39 PM 05/09/2025 1:41 AM This is order is used when code status has not been discussed with the patient, or code status is otherwise unknown/unconfirmed To update the patient's code status, place a code status order. Do not modify or discontinue any currently active code status orders. * Full Code - Default Date Activated Date Inactivated Comments 03/24/2025 6:20 AM 03/29/2025 7:17 PM This is orde r is used when code status has not been discussed with the patient, or code status is otherwise unknown/unconfirmed To update the patient's code status, place a code status order. Do not modify or discontinue any currently active code status orders. * Full Code - Default Date Activated Date Inactivated Comments 09/27/2024 9:54 PM 09/28/2024 7:38 PM This is or tiburcio is used when code status has not been discussed with the patient, or code status is otherwise unknown/unconfirmed To update the patient's code status, place a code status order. Do not modify or discontinue any currently active code status orders. Care Teams Installation And Repair Technician Relationship Specialty Start Date End Date Essie Kaplan MD [address] [id number] PCP - General Internal Medicine 07/31/24
== END 2025-08-10 16:17 | disposition home or self-care (01) ==
LOC: HO.HSMS 15:29
PROVIDERS: PCP Internal Medicine; Visit Provider Nurse Practitioner Family
DX: R56.9 Unspecified convulsions (principal)
CPT/HCPCS: 99213

== ENCOUNTER → 2025-08-10 15:28 | Outpatient (BNVA) | payer MEDICARE, MEDICAID, SELFPAY | PROVIDERS: PCP Internal Medicine; Visit Provider Nurse Practitioner Family | DX: R56.9 Unspecified convulsions (principal) | CPT/HCPCS: 99212 ==

== ENCOUNTER 2025-08-11 11:52 | Outpatient (REF) | payer MEDICARE, MEDICAID, SELFPAY ==
--- OUTSIDE RECORDS SUMMARY | 2025-08-11 14:36 | XMS_ITS | Clinical Summary ---
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, with long-term current use of insulin ([facility] V24, [facility] V28) 08/03/2025 Morbid (severe) obesity due to excess calories ([facility] V24, [facility] V28) 08/03/2025 Below-knee amputation of lef t lower extremity ([facility] V24, [facility] V28) 06/09/2025 Chest pain 05/08/2025 UTI (urinary tract infection) 03/24/2025 Testicular pain, right 03/24/2025 Encounter for change or js ping of nonsurgical wound dressing 10/21/2024 Cutaneous abscess of right axilla 10/21/2024 Cutaneous abscess of head (any part, except face ) 10/21/2024 Type 2 diabetes mellitus wit h hyperglycemia ([facility] V24, [facility] V28) 10/21/2024 Acute embolism and thrombosi s [...] metabolic panel; Future CHF (congestive heart failure) ([facility] V24, [facility] V28) 11/13/2021 Overview (07/08/2024): Last Assessment & [...] BMP. STEMI (ST elevation myocardi al infarction) ([facility] V24, [facility] V28) 11/09/2021 Overview (07/08/2024): Last Assessment & [...] attention by calling 911. DM (diabetes mellitus) ([facility] V24, [facility] V28 ) 10/25/2020 Hyperlipidemia 10/25/2020 Overview (07/08/2024): [...] Overview (07/08/2024): Noncompliant with cpap Seizure disorder ([facility] V24, [facility] V28) 10/07 PLMD (periodic limb movement disorder) 9 Diabetic retinopathy ([facility] V24, [facility] V28) 07/08/2018 Overview (07/08/2024): Comments: Right eye Microalbuminuria 07/08/2018 Type 1 diabetes mellitus wit h eye manifestations ([facility] V24, [facility] V28) 07/08/2018 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 Overview (07/08/2024): INH therapy Obstructive sleep apnea 01/14/2018 Overview (07/08/2024): [facility] Polysomnogram: Date 2019; Wt 213#; [...] 1 diabetes mellitus wit h renal manifestations ([facility] V24, [facility] V28) 01/14/2018 Cardiomyopathy ([facility] V24, [facility] V28) 2016 Overview (07/08/2024): Last Assessment & Plan: This 37-year-old gentleman with an ischemic cardiomyopathy from prior myocardial infarction has an LVEF of 25 to 30% chronically despite optimal medical therapy. He is at increased risk of sudden cardiac due to ventricular arrhythmias. I had a long discussion with a motorcycle police going over the risks and benefits of [...] and complications from sedation. I reviewed the [facility] risk assessment tool with him [...] Insulin dependent type 2 winnie betes mellitus ([facility] V24, [facility] V28) 07/08/2024 03/24/2025 Substance abuse ([facility] V24, [facility] V28) 11/09/2014 08/03/2025 Overview (07/08/2024): Cannabis Encounters Date Type Department Care Team Description 08/05/2025 3:30 PM EDT Treatment [facility] Occupational Therapy [address] [phone] Marilyn Barr OT Acute pain of left shoulder (Primary Dx) 08/03/2025 3:15 PM EDT Office Visit Internal Medicine [facility] 175 [facility] [address] [place] [phone] Essie Kaplan MD Acquired absence of left leg below knee ([facility] V24, [facility] V28) (Primary Dx); Type 2 diabetes mellitus with both eyes affected by proliferative retinopathy and macular edema, with long-term current use of insulin ([facility] V24, [facility] V28); Morbid (severe) obesity due to excess calories ([facility] V24, [facility] V28); Substance abuse ([facility] V24, [facility] V28) 08/03/2025 Telephone Internal Medicine - [place] 175 [facility] [address] [place] [phone] Essie Kaplan MD 07/28/2025 3:30 PM EDT Evaluation [facility] Occupational Therapy [address] [place] [phone] Adamaris Mir OT Acute pain of left shoulder 07/28/2025 Plan of Care Documentation [facility] Occupational Therapy [address] [place] [phone] 07/20/2025 10:30 AM EDT Clinical Support [facility] 154 300 [facility] [address] [place] [address] Acute pain of left shoulder (Primary Dx) 07/15/2025 1:00 PM EDT Ancillary Procedure [facility] 154 300 [facility] [address] [place] [address] Encounter for adjustment or management of cardiac device 07/11/2025 8:22 PM EDT - 07/12/2025 12:50 AM EDT Emergency [facility] Emergency [address] [place] [address] Generalized abdominal pain (Primary Dx); Acute constipation Discharge Disposition: Home or Self Care 07/06/2025 6:25 PM EDT Ancillary Procedure [facility] [address] [facility] [address] [place] [address] 07/01/2025 10:00 AM EDT Office Visit Internal Medicine [facility] 175 [facility] [address] [place] [address] Essie Kaplan MD Type 2 diabetes mellitus with other circulatory complication, with long-term current use of insulin ([facility] V24, [facility] V28) (Primary Dx); Benign essential hypertension; Chronic congestive heart failure, unspecified heart failure type ([facility] V24, [facility] V28); Seizure disorder ([facility] V24, [facility] V28); Mixed hyperlipidemia 06/22/2025 Telephone Internal Medicine [facility] [address] [phone] Essie Kaplan MD 06/16/2025 12:21 PM EDT Anesthesia Event [facility] [address] [place] [address] Tommy Jose MD 06/16/2025 11:30 AM EDT - 06/16/2025 12:30 PM EDT Surgery [facility] [address] [place] [address] Srinivasa Gomes MD Eval subcutaneous ICD [56567 (CPT )] 06/16/2025 10:15 AM EDT - 06/16/2025 11:59 PM EDT Hospital Encounter [facility] [address] [place] [address] Srinivasa Gomes MD Ischemic cardiomyopathy Discharge Disposition: Home or Self Care 06/15/2025 Telephone Internal Medicine [facility] [place] [address] [address] Essie Kaplan MD 06/09/2025 3:15 PM EDT Office Visit Orthopedic Surgery - [place] 250 175 [facility] [address] [place] [phone] Thee Read DPM Trench foot, right, initial encounter (Primary Dx); Dermatophytosis of nail; Pain in toe of right foot; Blister of right foot, initial encounter; Diabetic mononeuropathy simplex ([facility] V24, [facility] V28); Type II diabetes mellitus with peripheral circulatory disorder ([facility] V24, [facility] V28) 06/06/2025 6:46 PM EDT - 06/06/2025 11:17 PM EDT Emergency [facility] Emergency [address] [place] [phone] J Luis Aguilar MD Goebel, Mathew, MD Encounter for medical screening examination (Primary Dx); Chest pain, unspecified type; Esophageal spasm; Hyperglycemia; Anemia, unspecified type; Hypomagnesemia Discharge Disposition: Home or Self Care 05/31/2025 1:40 PM EDT Office Visit [facility] [address] [facility] [address] [place] [address] Janie Vicente NP Chronic congestive heart failure, unspecified heart failure type ([facility] V24, [facility] V28) (Primary Dx); Ischemic cardiomyopathy; Essential (primary) hypertension; Mixed hyperlipidemia; Coronary artery disease involving port lions coronary artery of port lions heart without angina pectoris 05/31/2025 Telephone [facility] [address] [facility] [address] [place] [address] Janie Vicente NP 05/21/2025 Telephone [facility] [address] [facility] [address] [place] [address] Srinivasa Gomes MD 05/19/2025 Telephone [facility] - [facility] [address] [place] [address] Dejah Campos MD 05/17/2025 10:00 AM EDT Office Visit Internal Medicine - [place] 175 [facility] [address] [place] [address] Essie Kaplan MD Other chest pain (Primary Dx); Type 2 diabetes mellitus with hyperglycemia, unspecified whether watcher automat long goods insulin use ([facility] V24, [facility] V28); Other congestive heart failure ([facility] V24, [facility] V28); Primary hypertension; Mixed hyperlipidemia 05/17/2025 Telephone Internal Medicine - [place] 175 [facility] [address] [place] [phone] Essie Kaplan MD 05/11/2025 Telephone Internal Medicine [facility] 175 [facility] [address] [place] [address] Essie Kaplan MD from Last 3 Months Surgical History Surgery Date Site/Laterality Comments HAND SURGERY PROCEDURE: HISTORICAL HAND SURGERY OTHER SURGICAL HISTORY PROCEDURE: GA TREATMENT EXTENSIVE RETINOPATHY PHOTOCOAGULATION; COMMENT: Laser treatments [...] hypertension 06/18/2017 DX :Benign essential hypertension Cardiomyopathy ([facility] V24, [facility] V28) 10/01/2017 DX:Cardiomyopathy (HCC) Depression 07/25/2017 DX:Depression Diabetic retinopathy ([facility] V24, [facility] V28) 07/08/2018 DX:Diabetic retinopathy ([facility] ); COMMENT: Comments: Right eye GERD (gastroesophageal reflux disease) 04/03/2017 DX:GERD (gastroesophageal reflux disease) Hypogonadism, male 02/21/2016 DX:Hypogonadi sm, male Microalbuminuria 07/08/2018 DX:Microalbumin uria Seizure disorder ([facility] V2 4, [facility] V28) 04/15/2017 DX:Seizure disorder (HCC) Substance abuse ([facility]/H[facility] V24 , [facility] V28) 11/09/2014 DX:Substance abuse (HCC); CO MMENT: [...] PM EST [facility] [address] [address] Adamaris Mir, OT 08/18/2025 3:30 PM EST Treatment [facility] [address] [address] Adamaris Mir, OT 08/25/2025 3:30 PM EST Treatment [facility] [address] [phone] Adamaris Mir, OT 08/26/2025 3:30 PM EST Ancillary Procedure [facility] [address] [address] 09/01/2025 4:00 PM EST Treatment [facility] [address] [address] Adamaris Mir, OT 09/08/2025 3:15 PM EST Office Visit Orthopedic Surgery - [place] [address] [address] Thee Read, DPM [address] [address] 09/08/2025 3:30 PM EST Treatment [facility] [address] [address] Adamaris Mir, OT 11/03/2025 3:45 PM EST Office Visit Internal Medicine - [address] [place] [address] Essie Kaplan MD [address] [place] [phone] Health Maintenance Due Date Last Done [...] Mir OT Medical Devices Implanted Type Area Motorcycle Police Device Identifier Shelf Expiration Date Model / Serial / Lot Generator [employer] Sicd Subq - [id number] - [id number] Implanted:Qty: 1 on 06/16/2025 by Srinivasa Gomes MD at [facility] Cardiac ICD Chest Wall [employer] MGMT [id number] 05/06/2026 [id number] / [id number] / Electrd Sq [employer] S-Icd - [id number] - [id number] Implanted:Qty: 1 on 06/16/2025 by Srinivasa Gomes MD at [facility] Cardiac Lead N/A: Chest Wall [employer] MGMT [id number] 06/05/2026 [id number] / [id number] / Envelope Ecm Cangaroo Xlg - [id number] - [id number] Implanted:Qty: 1 on 06/16/2025 by Srinivasa Gomes MD at [facility] Vascular Grafts N/A: Chest Wall [employer] (FKA [employer]) [id number] 09/18/2026 CMCV-009 -XLG / CMCV-009 -XLG / [id number] Procedures Procedure Name Priority Date/Time Associated [...] ECG 12-LEAD STAT 06/06/2025 6:28 PM EDT LIPID PANEL WITH REFLEX TO DIRECT LDL [...] Results * CARDIAC DEVICE CHECK- IN CLINIC- MUR (07/15/2025 3:30 PM EDT) Date Time Interrogation Session CV DEVICE CHECK Type Interrogation Session InClinic CV DEVICE CHECK Implantable Pulse Generator [employer] BSX CV DEVICE CHECK Implantable Pulse Generator Type S-ICD CV DEVICE CHECK Implantable Pulse Generator Model A219 CV DEVICE CHECK Implantable Pulse Generator Serial Number [id number] CV DEVICE CHECK Implantable Pulse Generator Implant Date [id number] CV DEVICE CHECK Battery Remaining Percentage 98.00 [...] with reflex microscopic (07/11/2025 11:39 PM EDT) Specific Kyle Urine 1.010 1.003 - 1.030 LAB URINALYSIS - AUTOMATED METHOD 07/12/2025 12:01 AM EDT [facility] pH, Urine 6.5 5.0 - 8.0 pH LAB URINALYSIS - AUTOMATED METHOD 07/12/2025 12:01 AM [facility] Leukocytes, Urine Negative Negative LAB URINALYSIS - AUTOMATED METHOD 07/12/2025 12:01 AM [facility] Nitrite, Urine Negative Negative LAB URINALYSIS - AUTOMATED METHOD 07/12/2025 12:01 AM [facility] Protein, Urine Negative <=Trace mg/dL LAB URINALYSIS - AUTOMATED METHOD 07/12/2025 12:01 AM [facility] Glucose, Urine Negative Negative mg/dL LAB URINALYSIS - AUTOMATED METHOD 07/12/2025 12:01 AM [facility] Ketones, Urine Negative Negative mg/dL LAB URINALYSIS - AUTOMATED METHOD 07/12/2025 12:01 AM [facility] Urobilinogen, Urine 0.2 0.2 - 1.0 mg/dL LAB URINALYSIS - AUTOMATED METHOD 07/12/2025 12:01 AM [facility] Bilirubin, Urine Negative Negative LAB URINALYSIS - AUTOMATED METHOD 07/12/2025 12:01 AM [facility] Blood, Urine Negative Negative LAB URINALYSIS - AUTOMATED METHOD 07/12/2025 12:01 AM [facility] Urine Urine specimen obtained by clean catch procedure / Unknown Non-blood Collection / Unknown 07/11/2025 11:39 PM EDT 07/11/2025 11:50 PM EDT us Gabby OWENS LAB URINE ORDERABLES Fin al Result [facility] [address] [place] [address], * (ABNORMAL) CBC auto differential (07/11/2025 9:31 PM EDT) Only the most recent of3 resultswithin the time period is included. [facility] Signature WBC 10.8 4.8 - 10.8 K/mcL LAB HEMETOLOGY METHOD 07/11/2025 10:05 PM [facility] RBC 4.00(L) 4.50 - 5.50 M/mcL LAB HEMETOLOGY METHOD 07/11/2025 10:05 PM [facility] Hemoglobin 11.9(L) 13.5 - 17.5 g/dL LAB HEMETOLOGY METHOD 07/11/2025 10:05 PM [facility] Hematocrit 36.6(L) 42.0 - 54.0 % LAB HEMETOLOGY METHOD 07/11/2025 10:05 PM [facility] MCV 91.7 79.0 - 98.0 FL LAB HEMETOLOGY METHOD 07/11/2025 10:05 PM [facility] MCH 29.8 27.0 - 32.0 pcg LAB HEMETOLOGY METHOD 07/11/2025 10:05 PM [facility] MCHC 32.5 32.0 - 37.0 g/dL LAB HEMETOLOGY METHOD 07/11/2025 10:05 [facility] RDW 12.4 11.0 - 15.0 % LAB HEMETOLOGY METHOD 07/11/2025 10:05 PM [facility] Platelets 238 130 - 400 K/mcL LAB HEMETOLOGY METHOD 07/11/2025 10:05 PM [facility] MPV 10.1 7.0 - 11.0 FL LAB HEMETOLOGY METHOD 07/11/2025 10:05 PM [facility] NRBC 0.0 <1.0 % LAB HEMETOLOGY METHOD 07/11/2025 10:05 PM [facility] NRBC Absolute 0.00 <0.10 K/[facility] LAB HEMETOLOGY METHOD 07/11/2025 10:05 PM [facility] Neutrophils Relative 68.9 % LAB HEMETOLOGY METHOD 07/11/2025 10:05 PM [facility] Lymphocytes Relative 18.3 % LAB HEMETOLOGY METHOD 07/11/2025 10:05 PM [facility] Monocytes Relative 6.9 % LAB HEMETOLOGY METHOD 07/11/2025 10:05 PM [facility] Eosinophils Relative 4.9 % LAB HEMETOLOGY METHOD 07/11/2025 10:05 PM [facility] Basophils Relative 0.5 % LAB HEMETOLOGY METHOD 07/11/2025 10:05 PM [facility] Immature Granulocytes Relative 0.5 % LAB HEMETOLOGY METHOD 07/11/2025 10:05 PM [facility] Neutrophils Absolute 7.45(H) 1.50 - 7.00 K/mcL LAB HEMETOLOGY METHOD 07/11/2025 10:05 PM [facility] Lymphocytes Absolute 1.98 1.00 - 5.00 K/mcL LAB HEMETOLOGY METHOD 07/11/2025 10:05 PM [facility] Monocytes Absolute 0.75 0.20 - 1.00 K/mcL LAB HEMETOLOGY METHOD 07/11/2025 10:05 PM [facility] Eosinophils Absolute 0.53(H) 0.00 - 0.50 K/mcL LAB HEMETOLOGY METHOD 07/11/2025 10:05 PM [facility] Basophils Absolute 0.05 0.00 - 0.20 K/mcL LAB HEMETOLOGY METHOD 07/11/2025 10:05 PM [facility] Immature Granulocytes Absolute 0.05(H) 0.00 - 0.03 K/mcL LAB HEMETOLOGY METHOD 07/11/2025 10:05 PM EDT [facility] Blood Venous blood specimen / Unknown Venipuncture / Unknown 07/11/2025 9:31 PM EDT 07/11/2025 9:56 PM EDT Corby Moser MD LAB BLOOD ORDERABLES Final Resul t Performing Organization Address City/[facility]/ZIP Co de Phone Number [facility] [address] [place] [address], [place] [phone] * Magnesium (07/11/2025 9:31 PM EDT) Only the most recent of2 resultswithin the time period is included. Magnesium 2.2 1.9 - 2.6 mg/dL LAB CHEMISTRY METHOD 07/11/2025 10:52 PM EDT [facility] Comment:Hemolysis present Blood Venous blood specimen / Unknown Venipuncture / Unknown 07/11/2025 9:31 PM EDT 07/11/2025 9:56 PM EDT Gabby OWENS LAB BLOOD ORDERABLES Fin al Result Performing Organization Address [facility] de Phone Number [facility] [address] [place] [address], [place] [phone] * Lipase (07/11/2025 9:31 PM EDT) Only the most recent of2 resultswithin the time period is included. Lipase 20 13 - 75 unit/L LAB CHEMISTRY METHOD 07/11/2025 10:52 PM EDT [facility] Blood Venous blood specimen / Unknown Venipuncture / Unknown 07/11/2025 9:31 PM EDT 07/11/2025 9:56 PM EDT Gabby OWENS LAB BLOOD ORDERABLES Fin al Result Performing Organization Address City/[facility]/ZIP Co de Phone Number [facility] [address] [place] [address], * (ABNORMAL) Comprehensive metabolic panel (07/11/2025 9:31 PM EDT) Only the most recent of2 resultswithin the time period is included. Sodium 136 133 - 145 mmol/L LAB CHEMISTRY METHOD 07/11/2025 10:52 PM EDT [facility] Potassium 5.1 3.5 - 5.5 mmol/L LAB CHEMISTRY METHOD 07/11/2025 10:52 PM [facility] Comment:Hemolysis present Chloride 104 96 - 110 mmol/L LAB CHEMISTRY METHOD 07/11/2025 10:52 PM [facility] CO2 26 21 - 32 mmol/L LAB CHEMISTRY METHOD 07/11/2025 10:52 PM [facility] Anion Gap 6 3 - 11 LAB CHEMISTRY METHOD 07/11/2025 10:52 PM [facility] Glucose 181(H) 70 - 100 mg/dL LAB CHEMISTRY METHOD 07/11/2025 10:52 PM [facility] BUN 29(H) 5 - 25 mg/dL LAB CHEMISTRY METHOD 07/11/2025 10:52 PM [facility] Creatinine 1.47(H) 0.70 - 1.30 mg/dL LAB CHEMISTRY METHOD [facility] e[facility] 61 >=60 mL/min/1. 73m2 LAB CHEMISTRY METHOD 07/11/2025 10:52 PM [facility] Comment:Calculation based on the Chronic Kidney Disease Epidemiology Collaboration (CKD-EPI) equation refit without adjustment for race. BUN/Creatinine Ratio 19.7 LAB CHEMISTRY METHOD 07/11/2025 10:52 PM [facility] Calcium 9.2 8.5 - 10.5 mg/dL LAB CHEMISTRY METHOD 07/11/2025 10:52 PM [facility] AST (SGOT) 46(H) 10 - 42 unit/L LAB CHEMISTRY METHOD 07/11/2025 10:52 PM EDT [facility] Comment:Hemolysis present ALT (SGPT) 46 10 - 60 unit/L LAB CHEMISTRY METHOD 07/11/2025 10:52 PM EDT [facility] Alkaline Phosphatase 179(H) 42 - 121 unit/L LAB CHEMISTRY METHOD 07/11/2025 10:52 PM EDT [facility] Total Protein 7.6 6.0 - 8.0 g/dL LAB CHEMISTRY METHOD 07/11/2025 10:52 PM EDT [facility] Albumin 3.2 3.2 - 5.0 g/dL LAB CHEMISTRY METHOD 07/11/2025 10:52 PM EDT [facility] Total Bilirubin 0.3 0.0 - 1.4 mg/dL LAB CHEMISTRY METHOD 07/11/2025 10:52 PM EDT [facility] Blood Venous blood specimen / Unknown Venipuncture / Unknown 07/11/2025 9:31 PM EDT 07/11/2025 9:56 PM EDT us Corby Moser MD LAB BLOOD ORDERABLES Final Resul t [facility] [address] [place] [address], * External Diabetic Retina Eye Exam Report (07/08/2025) Anatomical Region Laterality Modality Ultrasound us Provider [facility] IM[facility] US PROCEDURES Final Result * Cardiac device check - Remote- MURJ (07/06/2025 6:24 PM EDT) Date Time Interrogation Session [id number] CV DEVICE CHECK Type Interrogation Session Remote Patient Initiated CV DEVICE CHECK Implantable Pulse Generator [employer] BSX CV DEVICE CHECK Implantable Pulse Generator Type S-ICD CV DEVICE CHECK Implantable Pulse Generator Model A219 CV DEVICE CHECK Implantable Pulse Generator Serial Number [id number] CV DEVICE CHECK Implantable Pulse Generator Implant [...] LAB CHEMISTRY METHOD 07/01/2025 4:53 PM EDT [facility] Potassium 3.7 3.5 - 5.5 mmol/L LAB CHEMISTRY METHOD 07/01/2025 4:53 PM EDT [facility] Chloride 102 96 - 110 mmol/L LAB CHEMISTRY METHOD 07/01/2025 4:53 PM EDT [facility] CO2 33(H) 21 - 32 mmol/L LAB CHEMISTRY METHOD 07/01/2025 4:53 PM EDT [facility] Anion Gap 4 3 - 11 LAB CHEMISTRY METHOD 07/01/2025 4:53 PM EDT [facility] Glucose 187(H) 70 - 100 mg/dL LAB CHEMISTRY METHOD 07/01/2025 4:53 PM EDT [facility] BUN 23 5 - 25 mg/dL LAB CHEMISTRY METHOD 07/01/2025 4:53 PM EDT [facility] Creatinine 1.39(H) 0.70 - 1.30 mg/dL LAB CHEMISTRY METHOD 07/01/2025 4:53 PM EDT [facility] eGFR 66 >=60 mL/min/1. 73m2 LAB CHEMISTRY METHOD 07/01/2025 4:53 PM EDT [facility] Comment:Calculation based on the Chronic Kidney Disease Epidemiology Collaboration (CKD-EPI) equation refit without adjustment for race. BUN/Creatinine Ratio 16.5 LAB CHEMISTRY METHOD 07/01/2025 4:53 PM EDT [facility] Calcium 8.9 8.5 - 10.5 mg/dL LAB CHEMISTRY METHOD 07/01/2025 4:53 PM EDT [facility] Blood Venous blood specimen / Unknown Venipuncture / Unknown 07/01/2025 10:54 AM EDT 07/01/2025 10:54 AM EDT us Essie Kaplan MD LAB BLOOD ORDERABLES Final Res ult [facility] [address] [place] [address], * XR Chest 2 Views (06/16/2025 3:16 [...] Signed Date: 06/16/2025 16:08 ET Workstation ID: [id number] Transcribed By: Self Edit Transcribed Date: 06/16/2025 [...] Signed Date: 06/16/2025 16:08 ET Workstation ID: [id number] Transcribed By: Self Edit Transcribed Date: 06/16/2025 16:06 ET us Nataliia Miranda DIESEL CRANE OPERATOR IMG XR PROCEDURES Final Re sult * [...] due to the low impedance. Device implanted: [employer] [place] MRI S-ICD model #8219 serial #[id number] Defibrillator electrode: [employer] model number 12/09/2000 (45 cm) serial #[id number] us Srinivasa Gomes MD CV ELECTROPHYSIOLOGY PROCEDURE S Final Result * Prothrombin time with INR (06/08/2025 11:52 AM EDT) Only the most recent of2 resultswithin the time period is included. Protime 11.9 10.6 - 13.9 sec LAB COAGULATION METHOD 06/08/2025 2:23 PM EDT [facility] INR 0.9 LAB COAGULATION METHOD 06/08/2025 2:23 PM EDT [facility] Blood Venous blood specimen / Unknown Venipuncture / Unknown 06/08/2025 11:52 AM EDT 06/08/2025 11:52 AM EDT us Srinivasa Gomes MD LAB BLOOD ORDERABLES Final Res ult [facility] [address] [place] [address], [place] [phone] * (ABNORMAL) Complete blood count (06/08/2025 11:52 AM EDT) WBC 7.8 4.8 - 10.8 K/mcL LAB HEMETOLOGY METHOD 06/08/2025 2:20 PM EDT [facility] RBC 4.20(L) 4.50 - 5.50 M/mcL LAB HEMETOLOGY METHOD 06/08/2025 2:20 PM EDT [facility] Hemoglobin 12.8(L) 13.5 - 17.5 g/dL LAB HEMETOLOGY METHOD 06/08/2025 2:20 PM EDT [facility] Hematocrit 37.4(L) 42.0 - 54.0 % LAB HEMETOLOGY METHOD 06/08/2025 2:20 PM EDT [facility] MCV 89.3 79.0 - 98.0 FL LAB HEMETOLOGY METHOD 06/08/2025 2:20 PM EDT [facility] MCH 30.5 27.0 - 32.0 pcg LAB HEMETOLOGY METHOD 06/08/2025 2:20 PM EDT [facility] MCHC 34.2 32.0 - 37.0 g/dL LAB HEMETOLOGY METHOD 06/08/2025 2:20 PM EDT [facility] RDW 12.4 11.0 - 15.0 % LAB HEMETOLOGY METHOD 06/08/2025 2:20 PM EDT [facility] Platelets 226 130 - 400 K/mcL LAB HEMETOLOGY METHOD 06/08/2025 2:20 PM EDT [facility] MPV 10.2 7.0 - 11.0 FL LAB HEMETOLOGY METHOD 06/08/2025 2:20 PM EDT [facility] NRBC 0.0 <1.0 % LAB HEMETOLOGY METHOD 06/08/2025 2:20 PM EDT [facility] NRBC Absolute 0.00 <0.10 K/mcL LAB HEMETOLOGY METHOD 06/08/2025 2:20 PM EDT [facility] Blood Venous blood specimen / Unknown Venipuncture / Unknown 06/08/2025 11:52 AM EDT 06/08/2025 11:52 AM EDT us Srinivasa Gomes MD LAB BLOOD ORDERABLES Final Res ult [facility] [address] [place] [address], [place] [phone] * ECG-Annotated (06/08/2025) Only the most recent of2 resultswithin the time period is included. us Provider Onbase ECG ORDERABLES Final Result * Troponin I high sensitivity (06/06/2025 8:57 PM EDT) Only the most recent of2 resultswithin the time period is included. High Sensitivity Troponin I 6 <=79 ng/L LAB CHEMISTRY METHOD 06/06/2025 10:22 PM EDT [facility] Blood Venous blood specimen / Unknown Venipuncture / Unknown 06/06/2025 8:57 PM EDT 06/06/2025 9:25 PM EDT Narrative [facility] - 06/06/2025 10:22 PM EDT High levels of biotin in samples may falsely decrease hsTroponin values. Use caution when interpreting hsTroponin results in patients taking biotin who exhibit renal impairment (eGFR <60) or in patients taking more than 20 mg/day of biotin. J Luis Aguilar MD LAB BLOOD ORDERABLES Final Res ult [facility] [address] [place] [address], [place] [phone] * RHYTHM ECG, REPORT (06/06/2025 8:16 PM EDT) J Luis Cabrera MD - 06/06/2025 8:16 PM EDT J Luis Aguilar MD 06/06/2025 9:35 PM ECG Rhythm Interpretation and Report Date/Time: 06/06/2025 8:16 PM Performed by: J Luis Aguilar MD Authorized by: J Luis Aguilar MD ECG interpreted by ED Physician in the absence of a drama teacher: yes Previous ECG: Previous ECG: Compared to [...] LAB COAGULATION METHOD 06/06/2025 8:38 PM EDT [facility] Blood Venous blood specimen / Unknown Venipuncture / Unknown 06/06/2025 7:55 PM EDT 06/06/2025 8:19 PM EDT [facility] - 06/06/2025 8:38 PM EDT D-Dimer <230 ng/mL (D-Dimer units) is the threshold for exclusion of DVT/PE. D-Dimer may be elevated in: Critically ill, severely infected, trauma patients, DIC, acute CVA, acute [place], unstable angina, AF, old age, , and smoking. D-Dimer may be decreased with: Initiation of heparin therapy and oral anticoagulants. us J Luis Aguilar MD LAB BLOOD ORDERABLES Final Res ult Performing Organization Address [facility] Co de Phone Number [facility] [address] [place] [address], [place] [phone] * B-type natriuretic peptide (06/06/2025 7:55 PM EDT) BNP 20 <=100 pcg/mL LAB CHEMISTRY METHOD 06/06/2025 8:57 PM EDT [facility] Blood Venous blood specimen / Unknown Venipuncture / Unknown 06/06/2025 7:55 PM EDT 06/06/2025 8:19 PM EDT us J Luis Aguilar MD LAB BLOOD ORDERABLES Final Res ult Performing Organization Address [facility] Co de Phone Number [facility] [address] [place] [address], [place] [phone] * XR Chest 1 View (06/06/2025 7:28 PM EDT) Anatomical Region Laterality Modality Body Radiographic Khushi ging 06/07/2025 7:48 AM EDT Impressions 06/07/2025 7:49 AM EDT No focal pneumonia or alveolar edema. -------- FINAL REPORT -------- Dictated By: Iain Mason Dictated Date: 06/07/2025 07:48 ET Assigned Physician: Iain Mason Reviewed and Electronically Signed By: Iain Mason Signed Date: 06/07/2025 07:49 ET Workstation ID: [id number] Transcribed By: Self Edit Transcribed Date: 06/07/2025 [...] Signed Date: 06/07/2025 07:49 ET Workstation ID: [id number] Transcribed By: Self Edit Transcribed Date: 06/07/2025 07:48 ET J Luis Aguilar MD IMG XR PROCEDURES Final Result * ECG 12 lead (06/06/2025 6:28 PM EDT) Ventricular Rate ECG 78 BPM GEMUSE Atrial Rate 78 BPM GEMUSE P-R Interval 184 ms GEMUSE QRS Duration 118 ms GEMUSE Q-T Interval 382 ms GEMUSE QTc 435 ms GEMUSE P Wave [place] 28 degrees GEMUSE R [place] -31 degrees GEMUSE T [place] 70 degrees GEMUSE ECG Interpretation Normal sinus [...] mg/dL LAB CHEMISTRY METHOD 05/09/2025 3:09 AM EDT [facility] Triglycerides 168(H) 0 - 150 mg/dL LAB CHEMISTRY METHOD 05/09/2025 3:09 AM EDT [facility] HDL 30(L) >=40 mg/dL LAB CHEMISTRY METHOD 05/09/2025 3:09 AM EDT [facility] LDL Calculated 49 0 - 100 mg/dL LAB CHEMISTRY METHOD 05/09/2025 3:09 AM EDT [facility] VLDL Cholesterol Zoltan 33.6 mg/dL LAB CHEMISTRY METHOD 05/09/2025 3:09 AM EDT [facility] Non HDL Chol. (LDL+VLDL) 83 <145 mg/dL LAB CHEMISTRY METHOD 05/09/2025 3:09 AM EDT [facility] Chol/HDL Ratio 3.8 0.0 - 4.4 LAB CHEMISTRY METHOD 05/09/2025 3:09 AM EDT [facility] Blood Venous blood specimen / Unknown Venipuncture / Unknown 05/09/2025 2:39 AM EDT 05/09/2025 2:43 AM EDT us Marco Antonio Willingham MD LAB BLOOD ORDERABLES Final Resu lt [facility] [address] [place] [address], [place] [phone] * (ABNORMAL) Hemoglobin A1c (03/24/2025 4:47 AM EDT) [facility] Hemoglobin A1C 8.9(H) <6.5 % LAB CHEMISTRY METHOD 03/24/2025 12:34 PM EDT [facility] Mean Bld Glu Estim. 209 mg/dL LAB CHEMISTRY METHOD 03/24/2025 12:34 PM EDT [facility] Blood Venous blood specimen / Unknown Venipuncture / Unknown 03/24/2025 4:47 AM EDT 03/24/2025 4:55 AM EDT Kimberly Patton DIESEL CRANE OPERATOR LAB BLOOD ORDERABLES Final Res ult Performing Organization Address City/[facility]/ZIP Co de Phone Number [facility] [address] [place] [address], * Hepatitis C antibody (11/03/2024 12:05 PM EST) [facility] Hepatitis C Antibody Negative Negative LAB CHEMISTRY METHOD 11/03/2024 3:32 PM EST [facility] Blood Venous blood specimen / Unknown Venipuncture / Unknown 11/03/2024 12:05 PM EST 11/03/2024 12:05 PM EST Mandeep Rainey DIESEL CRANE OPERATOR LAB BLOOD ORDERABLES Final Resul t [facility] [address] [place] [address], [place] [phone] * HIV 1,2 antibody, p24 antigen with reflex to differentiation (11/03/2024 12:05 PM EST) [facility] HIV Combo AB/AG Negative Negative LAB CHEMISTRY METHOD 11/03/2024 3:32 PM EST [facility] Blood Venous blood specimen / Unknown Venipuncture / Unknown 11/03/2024 12:05 PM EST 11/03/2024 12:05 PM EST Narrative [facility] - 11/03/2024 3:32 PM EST This assay is a 4th generation assay allowing for earlier detection of HIV infection by detecting the presence of the HIV-1 p24 antigen as well as the traditional antibodies to HIV type 1 (including group O) and type 2. Use of a 4th generation assay is the current CDC recommendation for HIV screening. Mandeep Rainey DIESEL CRANE OPERATOR LAB BLOOD ORDERABLES Final Resul t [facility] ([facility]) [facility] [address] [place] [address], * Urine Albumin Creatinine Ratio (10/15/2022) Urine Albumin Creatinine Ratio abstracted Historical Provider MD HEALTH MAINTENANCE Final Result from Last 3 Months or Most Recently Relevant to Health Maintenance Additional Health Concerns Infection Onset Date Last Indicated ESBL Comment:03/24/25 Repeat Urine culture (+) ESBL E. 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 Care Teams Sawmilling Operator Relationship Specialty Start Date End Date Essie Kaplan MD [address] [place] [phone] PCP - General Internal Medicine 07/31/24
--- OUTSIDE RECORDS SUMMARY | 2025-08-11 14:36 | XMS_ITS | Encounter Summary ---
Author Organization [facility] Address [address] [place] [address] Care Team Providers Care Ict Educator Name Role Phone Essie Kaplan MD Primary Care Provider [phone] Encounter Details Date Type Department Care Team (Late st Contact Info) Description 09/22/2024 Lab Requisition [facility] - Main Lab [address] [facility] [place] [phone] Robyn Morfin FNP [address] [facility] [address] [place] [address] Unspecified convulsions (CMS/HCC V24, CMS/HCC V28) Social [...] PM EST Treatment [facility] 175 [facility] [address] [place] [phone] Adamaris Mir OT 08/18/2025 3:30 PM EST Treatment [facility] 175 [facility] [address] [place] [phone] Adamaris Mir, OT 08/25/2025 3:30 PM EST Treatment [facility] 175 [facility] [address] [place] [phone] Adamaris Mir, OT 08/26/2025 3:30 PM EST Ancillary Procedure [facility] 101 300 [facility] [address] [place] [address] 09/01/2025 4:00 PM EST Treatment [facility] [address] [phone] Adamaris Mir, OT 09/08/2025 3:15 PM EST Office Visit Orthopedic Surgery - [place] 250 [address] [facility] [address] [place] [phone] Thee Read, DPM 175 [facility] [address] [place] [phone] 09/08/2025 3:30 PM EST Treatment [facility] [address] [phone] Adamaris Mir, OT 11/03/2025 3:45 PM EST Office Visit Internal Medicine - [place] 175 [facility] [address] [place] [phone] Essie Kaplan MD [address] [place] [phone] documented as of this encounter Procedures Procedure [...] Phenytoin level total (09/22/2024 10:36 AM EST) Phenytoin Level 10.8 10.0 - 20.0 mcg/mL LAB CHEMISTRY METHOD 09/23/2024 6:42 AM EST [facility] Blood Venous blood specimen / Unknown 09/22/2024 10:36 AM EST 09/23/2024 6:04 AM EST [facility] LAB BLOOD ORDERABLES Geetha l Result Performing Organization Address [facility]/ZIP Co de Phone Number [facility] [address] [place] [address], [place] [phone] * Red tube (09/22/2024 10:36 AM EST) Pathologist [facility] Extra Tube Hold for add-ons. 09/22/2024 4:01 PM EST [facility] Comment:Auto resulted. Blood Venous blood specimen / Unknown 09/22/2024 10:36 AM EST 09/22/2024 2:09 PM EST Robyn Morfin [facility] BLOOD ORDERABLES Geetha l Result [facility] [address] [place] [address], [place] [phone] * SST tube (09/22/2024 10:36 AM EST) [facility] Extra Tube Hold for add-ons. 09/22/2024 4:01 PM EST [facility] Comment:Auto resulted. Blood Venous blood specimen / Unknown 09/22/2024 10:36 AM EST 09/22/2024 2:09 PM EST Robyn Morfin [facility] BLOOD ORDERABLES Geetha l Result [facility] [address] [place] [address], [place] [phone] * (ABNORMAL) CBC auto differential (09/22/2024 10:36 AM EST) [facility] WBC 9.1 4.8 - 10.8 K/mcL LAB HEMETOLOGY METHOD 09/22/2024 2:26 PM [facility] RBC 4.50 4.50 - 5.50 M/[facility] LAB HEMETOLOGY METHOD 09/22/2024 2:26 PM [facility] Hemoglobin 14.1 13.5 - 17.5 g/dL LAB HEMETOLOGY METHOD 09/22/2024 2:26 PM [facility] Hematocrit 40.2(L) 42.0 - 54.0 % LAB HEMETOLOGY METHOD 09/22/2024 2:26 PM [facility] MCV 89.7 79.0 - 98.0 FL LAB HEMETOLOGY METHOD 09/22/2024 2:26 PM [facility] MCH 31.5 27.0 - 32.0 pcg LAB HEMETOLOGY METHOD 09/22/2024 2:26 PM [facility] MCHC 35.1 32.0 - 37.0 g/dL LAB HEMETOLOGY METHOD 09/22/2024 2:26 PM [facility] RDW 12.9 11.0 - 15.0 % LAB HEMETOLOGY METHOD 09/22/2024 2:26 PM [facility] Platelets 202 130 - 400 K/mcL LAB HEMETOLOGY METHOD 09/22/2024 2:26 PM [facility] MPV 10.9 7.0 - 11.0 FL LAB HEMETOLOGY METHOD 09/22/2024 2:26 PM [facility] NRBC 0.0 <1.0 % LAB HEMETOLOGY METHOD 09/22/2024 2:26 PM [facility] NRBC Absolute 0.00 <0.10 K/mcL LAB HEMETOLOGY METHOD 09/22/2024 2:26 PM [facility] Neutrophils Relative 45.6 % LAB HEMETOLOGY METHOD 09/22/2024 2:26 PM [facility] Lymphocytes Relative 24.6 % LAB HEMETOLOGY METHOD 09/22/2024 2:26 PM [facility] Monocytes Relative 7.0 % LAB HEMETOLOGY METHOD 09/22/2024 2:26 PM [facility] Eosinophils Relative 21.8 % LAB HEMETOLOGY METHOD 09/22/2024 2:26 PM [facility] Basophils Relative 0.8 % LAB HEMETOLOGY METHOD 09/22/2024 2:26 PM [facility] Immature Granulocytes Relative 0.2 % LAB HEMETOLOGY METHOD 09/22/2024 2:26 PM [facility] Neutrophils Absolute 4.16 1.50 - 7.00 K/mcL LAB HEMETOLOGY METHOD 09/22/2024 2:26 PM [facility] Lymphocytes Absolute 2.24 1.00 - 5.00 K/mcL LAB HEMETOLOGY METHOD 09/22/2024 2:26 PM [facility] Monocytes Absolute 0.64 0.20 - 1.00 K/mcL LAB HEMETOLOGY METHOD 09/22/2024 2:26 PM EST [facility] Eosinophils Absolute 1.99(H) 0.00 - 0.50 K/mcL LAB HEMETOLOGY METHOD 09/22/2024 2:26 PM EST [facility] Basophils Absolute 0.07 0.00 - 0.20 K/mcL LAB HEMETOLOGY METHOD 09/22/2024 2:26 PM EST [facility] Immature Granulocytes Absolute 0.02 0.00 - 0.03 K/mcL LAB HEMETOLOGY METHOD 09/22/2024 2:26 PM EST [facility] Blood Venous blood specimen / Unknown 09/22/2024 10:36 AM EST 09/22/2024 2:09 PM EST Robyn Morfin SUBSCRIPTION CREW LEADER LAB BLOOD ORDERABLES Geetha l Result [facility] [address] [place] [address], * Phenytoin level free (09/22/2024 10:36 AM EST) Phenytoin, Free (Dilantin) 1.0 0.8 - 2.0 ug/mL 09/25/2024 12:56 PM EST [facility] Comment: Phenytoin free toxic level: >3.0 ug/mL If applicable, any drug confirmation testing reported here was developed and the performance characteristics determined by [facility]. This confirmation testing has not been cleared or approved by the FDA. The laboratory is regulated under CLIA as qualified to perform high-complexity testing. This test is used for patient testing purposes. It should not be regarded as investigational or for research. Test performed at [facility], [address] , [place] [address] Lesley Wall MD, PhD - Stuffed Casing Tier Blood Venous blood specimen / Unknown 09/22/2024 10:36 AM EST 09/22/2024 2:09 PM EST Robyn Morfin [facility] BLOOD ORDERABLES Geetha israel Result [place] [address] * (ABNORMAL) Comprehensive metabolic panel (09/22/2024 10:36 AM EST) Pathologist [facility] Sodium 139 133 - 145 mmol/L LAB CHEMISTRY METHOD 09/23/2024 8:22 AM [facility] Potassium 3.7 3.5 - 5.5 mmol/L LAB CHEMISTRY METHOD 09/23/2024 8:22 AM [facility] Chloride 105 96 - 110 mmol/L LAB CHEMISTRY METHOD 09/23/2024 8:22 AM [facility] CO2 31 21 - 32 mmol/L LAB CHEMISTRY METHOD 09/23/2024 8:22 AM [facility] Anion Gap 3 3 - 11 LAB CHEMISTRY METHOD 09/23/2024 8:22 AM [facility] Glucose 233(H) 70 - 100 mg/dL LAB CHEMISTRY METHOD 09/23/2024 8:22 AM [facility] BUN 10 5 - 25 mg/dL LAB CHEMISTRY METHOD 09/23/2024 8:22 AM [facility] Creatinine 1.35(H) 0.70 - 1.30 mg/dL LAB CHEMISTRY METHOD 09/23/2024 8:22 AM [facility] eGFR 68 >=60 mL/min/1. 73m2 LAB CHEMISTRY METHOD 09/23/2024 8:22 AM [facility] Comment:Calculation based on the Chronic Kidney Disease Epidemiology Collaboration (CKD-EPI) equation refit without adjustment for race. BUN/Creatinine Ratio 7.4 LAB CHEMISTRY METHOD 09/23/2024 8:22 AM [facility] Calcium 9.0 8.5 - 10.5 mg/dL LAB CHEMISTRY METHOD 09/23/2024 8:22 AM [facility] AST (SGOT) 25 10 - 42 unit/L LAB CHEMISTRY METHOD 09/23/2024 8:22 AM [facility] ALT (SGPT) 45 10 - 60 unit/L LAB CHEMISTRY METHOD 09/23/2024 8:22 AM [facility] Alkaline Phosphatase 205(H) 42 - 121 unit/L LAB CHEMISTRY METHOD 09/23/2024 8:22 AM [facility] Total Protein 7.6 6.0 - 8.0 g/dL LAB CHEMISTRY METHOD 09/23/2024 8:22 AM [facility] Albumin 3.4 3.2 - 5.0 g/dL LAB CHEMISTRY METHOD 09/23/2024 8:22 AM [facility] Total Bilirubin 0.4 0.0 - 1.4 mg/dL LAB CHEMISTRY METHOD 09/23/2024 8:22 AM [facility] Blood Venous blood specimen / Unknown Venipuncture / Unknown 09/22/2024 10:36 AM EST 09/22/2024 2:09 PM EST Robyn Morfin [facility] BLOOD ORDERABLES Edit ed Result - Final [facility] [address] [place] [address], documented in this encounter Visit Diagnoses Diagnosis Unspecified convulsions (CMS/HCC V24, CMS/HCC V28) documented in this encounter Additional Health Concerns Infection Onset Date Last Indicated Resolved Time ESBL Comment:03/24/25 Repeat Urine culture (+) ESBL E. Coli 11/21/2024 03/24/2025 documented as of this encounter Care Teams Ict Educator Relationship Specialty Start Date End Date Essie Kaplan MD [address] [place] [phone] PCP - General Internal Medicine 07/31/24 documented as of this encounter
--- OUTSIDE RECORDS SUMMARY | 2025-08-11 14:36 | XMS_ITS | Encounter Summary ---
Author Organization [facility] Address [address] [place] [address] Care Team Providers Care Caul Dresser Name Role Phone Essie Kaplan MD Primary Care Provider [phone] Encounter Details Date Type Department Care Team ([facility] st Contact Info) Description 08/03/2025 Telephone Internal Medicine [facility] [address] [facility] [address] [place] [phone] Essie Kaplan MD [address] [place] [phone] Social History Tobacco Use Types Packs/Day Years [...] PM EDT Pt is getting prosthesis from [address] [place] [address],/prosthetics and orthotics. Pt is asking if we can send the note . documented in this encounter Plan of Treatment Upcoming Encounters Date Type Department Care Team (Late st Contact Info) Description 08/11/2025 4:00 PM EST Treatment [facility] [address] [phone] Adamaris Mir, OT 08/18/2025 3:30 PM EST Treatment [facility] [address] [phone] Adamaris Mir, OT 08/25/2025 3:30 PM EST Treatment [facility] [address] [phone] Adamaris Mir, OT 08/26/2025 3:30 PM EST Ancillary Procedure [facility] 101 [address] [facility] [address] [place] [address] 09/01/2025 4:00 PM EST Treatment [facility] [address] [phone] Adamaris Mir, OT 09/08/2025 3:15 PM EST Office Visit Orthopedic Surgery - [place] 250 175 [facility] [address] [place] [phone] Thee Read, DPM 175 [facility] [address] [place] [phone] 09/08/2025 3:30 PM EST Treatment [facility] [address] [phone] Adamaris Mir, OT 11/03/2025 3:45 PM EST Office Visit Internal Medicine - [place] 175 [facility] [address] [place] [phone] Essie Kaplan MD [address] [place] [phone] documented as of this encounter Goals Goal [...] Acquired absence of left leg below knee ([facility] V24, [facility] V28) 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 Coli 11/21/2024 03/24/2025 documented as of this encounter Care Teams Caul Dresser Relationship Specialty Start Date End Date Essie Kaplan MD [address] [place] [phone] PCP - General Internal Medicine 07/31/24 documented as of this encounter
[2025-08-11 18:08] LABS: MANUAL DIFF FLAG NO
[2025-08-11 18:36] LABS: Alanine Aminotransferase 34 U/L (0-40); Albumin Level 3.6 g/dL (3.5-5.0); Alkaline Phosphatase 190 U/L (39-117); Anion Gap 12 (12-20); Aspartate Amino Transferase 30 U/L (5-37); Blood Urea Nitrogen 20 mg/dL (9-16); Calcium 9.0 mg/dL (8.4-10.2); Carbon Dioxide 30 mmol/L (22-29); Chloride 104 mmol/L (96-108); Estimated Glomerular Filt Rate 59; Potassium 3.5 mmol/L (3.3-5.1); Sodium 142 mmol/L (135-145); Total Protein 7.5 g/dL (6.5-8.0)
[2025-08-11 18:43] LABS: Hematocrit 36.5 % (42.0-52.0); Hemoglobin 12.4 g/dl (14.0-18.0); Imm Gran Abs Auto 0.05 X10*3/uL (0.00-0.03); Imm Gran Pct Auto 0.5 % (0.0-0.4); Lymphocytes Absolute Auto 1.6 X10*3/uL (1.2-4.9); Mean Corpuscular HGB Conc 34.0 g/dl (31.0-36.0); Mean Corpuscular Hemoglobin 30.5 pg (27.0-33.0); Mean Corpuscular Volume 89.9 fL (80.0-98.0); NRBC Abs Auto 0.000 X10*3/uL (0.0-0.012); NRBC Pct Auto 0.0 /100WBC (0.0-0.2); Platelet Count 239 X10*3/uL (160-400); Red Blood Count 4.06 X10*6/uL (4.60-5.80); White Blood Count 9.2 X10*3/uL (4.8-10.8)
[2025-08-13 05:49] LABS: Phenytoin, Free/Unbound 1.1 mg/L (1.0-2.0)
== END 2025-08-11 11:53 | disposition home or self-care (01) ==
LOC: HO.HKASLDS 11:52
PROVIDERS: PCP Internal Medicine; Visit Provider Nurse Practitioner Family
DX: R56.9 Unspecified convulsions (principal)
CPT/HCPCS: 36415; 80053; 80185; 80186; 85025